=== PATIENT | female | born 1950 | race Caucasian/White ===

== ENCOUNTER 2016-09-25 17:51 | Observation (INO) | payer OTHER, BC ==
[~2016-09-25] VITALS: Ht 157.5 cm; Wt 59.8 kg
[~2016-09-25 17:51] MED LIST: ASPCH81X PO; CRS/10 PO; DILT120C99 PO; NTRGSL/4 UT; PRED1SUS3 OPR
[2016-09-25] MEDS ORDERED: SODIUM CHLORIDE 0.9% 1000ML 1,000 ML IV STA (18:13)
[2016-09-25] MEDS ORDERED: ASPIRIN 81 MG CHEW PO STA (18:13)
[2016-09-25] MEDS ORDERED: ONDANSETRON 8 MG/54 ML D5W IV STA (18:13)
[2016-09-25] MEDS ORDERED: NITROGLYCERIN 0.4 MG SL PER TAB CHARGE SL PRN ×2 (18:15→21:00)
[2016-09-25] MEDS ORDERED: NITROGLYCERIN OINT 2% 1GM PACKET EXT ONE (18:15)
--- NOTE | 2016-09-25 18:27 | DIAGNOSTIC IMAGING REPORT ---
CHEST ONE VIEW PORTABLE CLINICAL HISTORY: Chest pain. COMPARISON STUDY: Chest radiograph November 08, 2014. FINDINGS: There is no pneumothorax or pleural effusion. Cardiac size is normal. Mild left basilar opacity suggests atelectasis. There is no consolidation to suggest pneumonia. The appearance of the chest is unchanged. IMPRESSION: No acute cardiopulmonary findings. Electronically signed by: Mikel Dang M.D. 09/25/2016 6:26 PM Dictated Date/Time: 09/25/2016 6:25 PM
[2016-09-25 18:30] LABS: BASO % 0.5 %; BASO ABS # 0.04 K/uL (0-0.2); COMPLETE YES; EOS % 2.5 %; HEMATOCRIT 43.4 % (37-47); IG% 0.1 %; LYMPH % 28.8 %; LYMPH ABS # 2.35 K/uL (1.2-3.4); MEAN CELL VOLUME 91.2 fL (80-100); MEAN CORPUSCULAR HEMOGLOBIN 30.9 pg (25-34); MEAN CORPUSCULAR HGB CONC 33.9 g/dl (32-36); MEAN PLATELET VOLUME 10.1 fL (7.4-10.4); MONO % 9.8 %; NEUT % 58.3 %; PLATELET COUNT 244 K/uL (130-400); RED BLOOD COUNT 4.76 M/uL (4.2-5.4); WHITE BLOOD COUNT 8.16 K/uL (4.8-10.8)
[2016-09-25 18:49] LABS: BUN/CREATININE RATIO 18.7 (10-20); CALCIUM 9.6 mg/dl (8.5-10.1); POTASSIUM 3.6 mmol/L (3.5-5.1)
[2016-09-25 18:54] LABS: CKMB/CK RATIO 0.9 (0-3.0)
[2016-09-25] MEDS ORDERED: IBAN150T7 PO (19:08)
[2016-09-25] MEDS ORDERED: DILT180C48 PO (19:08)
[2016-09-25] MEDS ORDERED: ROSU20TA22 PO (19:08)
[2016-09-25] MEDS ORDERED: CYCL0.052 OPB (19:08)
[2016-09-25] MEDS ORDERED: ONDANSETRON INJ 2 MG/ML 2 ML VIAL IV PRN (21:00)
--- NOTE | 2016-09-25 21:13 | History and Physical ---
History & Physical Date & Time of Service: Sep 25, 2016 at 21:12 Chief Complaint: Chest Pain, Cardiac Hx- Sob Primary Care Physician: Selina Moser D.O. History of Present Illness Source: patient, family Patient is a 66 yr old female with PMH of CAD S/P stent, Vasospastic angina, HTN, HLP and other problems who follows with for cardiology presents with history of sudden onset of retrosternal chest pain this afternoon. She reports chest pain started at rest, constant, "pressure and gripping like pain, radiated to right arm and neck. She states chest pain was transiently associated with SOB, diaphoresis, lightheadedness and was rated at 8 /10. She initially to NTG at home which didn't subside the pain but when she was given NTG in ED, pain subsided and currently she rates it to be discomfort at 1/10. Currently also denies SOB, Dizziness, palpitations, nausea while in ED. Denies any history of cough, wheezing, fever, chills, abd pain, change in bowel/bladder habits. States having mild headache since after using NTG. She had an exercise stress ECHO in June 2016 which was negative for inducible ischemia. She was increased on Diltiazem to 180mg daily recently and states she has been doing well until today afternoon which the change in medication dosage. Past Medical/Surgical History Medical Problems: (1) Ablation Status: Resolved (2) Acute coronary syndrome Status: Resolved (3) Celiac disease Status: Chronic (4) Coronary artery disease Status: Resolved (5) Coronary vasospasm Status: Chronic (6) Hyperlipidemia Status: Chronic (7) Raynaud's disease Status: Chronic Surgical Problems: (1) H/O heart artery stent Status: Resolved (2) History of cholecystectomy Status: Resolved (3) History of tonsillectomy Status: Resolved Family History Heart disease Mother: Heart disease, Parkinson's disease, Alzheimer's dementia Social History Smoking Status: Former Smoker (Quit in 1993) Alcohol Use: socially Drug Use: none Marital Status: in relationship Occupational Status: employed Immunizations History of Influenza Vaccine: N/A History of Tetanus Vaccine?: Unknown History of Pneumococcal: Unknown History of Hepatitis B Vaccine: Unknown Multi-Drug Resistant Organisms History of MDRO: No Allergies Coded Allergies: Codeine (Verified Allergy, Unknown, 09/25/16) Penicillins (Verified Allergy, Unknown, 09/25/16) Morphine (Verified Adverse Reaction, Unknown, Hypotension, 09/25/16) Oxycodone (Verified Adverse Reaction, Unknown, Hallucinations/Confusion, ) Home Medications Scheduled Aspirin (Aspirin Chewable), 81 MG PO QAM Cyclosporine (Ophth) (Restasis), 1 DROP OPB DAILY Diltiazem Hcl (Dilt-Xr), 1 TAB PO QAM Ibandronate Sodium (Ibandronate Sodium), 1 TAB PO MONTHLY Rosuvastatin Calcium (Rosuvastatin Calcium), 1 TAB PO QAM Scheduled PRN Nitroglycerin (Nitrostat), 0.4 MG UT UD PRN for Chest Pain Review of Systems See HPI for pertinent positives & negatives. A total of 10 systems reviewed and were otherwise negative. Physical Exam Vital Signs Date Time Temp Pulse Resp B/P (MAP) Pulse Ox O2 Delivery O2 Flow Rate FiO2 09/25/16 20:01 122/75 09/25/16 19:56 65 15 95 09/25/16 19:41 65 17 94 09/25/16 19:30 106/64 09/25/16 19:26 66 20 93 09/25/16 19:11 68 18 92 09/25/16 19:01 107/71 09/25/16 18:56 67 18 92 09/25/16 18:41 73 24 93 09/25/16 18:36 80 18 91 09/25/16 18:31 117/82 09/25/16 18:21 72 15 95 09/25/16 18:14 71 09/25/16 18:12 Room Air 09/25/16 18:12 95 Room Air 09/25/16 18:00 143/74 09/25/16 17:54 36.7 89 18 151/90 98 Room Air General Appearance: WD/WN, no apparent distress Head: normocephalic, atraumatic Eyes: normal inspection, PERRL, EOMI ENT: normal ENT inspection, hearing grossly normal Neck: supple, trachea midline Respiratory/Chest: chest non-tender, normal breath sounds, no respiratory distress, + crackles (Basal b/l) Cardiovascular: regular rate, rhythm, no edema, no murmur Abdomen/GI: normal bowel sounds, non tender, soft Back: normal inspection Extremities/Musculoskelatal: normal inspection, no pedal edema 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, no motor/sensory deficits, alert, normal mood/affect, oriented x 3 Skin: normal color, warm/dry Diagnostics Laboratory Results Results Past 24 Hours Test 09/25/16 18:10 09/25/16 18:23 Range/Units White Blood Count 8.16 4.8-10.8 K/uL Red Blood Count 4.76 4.2-5.4 M/uL Hemoglobin 14.7 12.0-16.0 g/dL Hematocrit 43.4 37-47 % Mean Corpuscular Volume 91.2 80-100 fL Mean Corpuscular Hemoglobin 30.9 25-34 pg Mean Corpuscular Hemoglobin Concent 33.9 32-36 g/dl Platelet Count 244 130-400 K/uL Mean Platelet Volume 10.1 7.4-10.4 fL Neutrophils (%) (Auto) 58.3 % Lymphocytes (%) (Auto) 28.8 % Monocytes (%) (Auto) 9.8 % Eosinophils (%) (Auto) 2.5 % Basophils (%) (Auto) 0.5 % Neutrophils # (Auto) 4.76 1.4-6.5 K/uL Lymphocytes # (Auto) 2.35 1.2-3.4 K/uL Monocytes # (Auto) 0.80 0.11-0.59 K/uL Eosinophils # (Auto) 0.20 0-0.5 K/uL Basophils # (Auto) 0.04 0-0.2 K/uL RDW Standard Deviation 45.1 36.4-46.3 fL RDW Coefficient of Variation 13.5 11.5-14.5 % Immature Granulocyte % (Auto) 0.1 % Immature Granulocyte # (Auto) 0.01 0.00-0.02 K/uL Sodium Level 140 136-145 mmol/L Potassium Level 3.6 3.5-5.1 mmol/L Chloride Level 108 98-107 mmol/L Carbon Dioxide Level 23 21-32 mmol/L Anion Gap 9.0 3-11 mmol/L Blood Urea Nitrogen 19 7-18 mg/dl Creatinine 1.00 0.60-1.20 mg/dl Est Creatinine Clear Calc Drug Dose 42.6 ml/min Estimated GFR () 67.0 Estimated GFR (Non- 57.8 BUN/Creatinine Ratio 18.7 10-20 Random Glucose 85 70-99 mg/dl Calcium Level 9.6 8.5-10.1 mg/dl Total Bilirubin 0.4 0.2-1 mg/dl Direct Bilirubin 0.2 0-0.2 mg/dl Aspartate Amino Transf (AST/SGOT) 26 15-37 U/L Alanine Aminotransferase (ALT/SGPT) 26 12-78 U/L Alkaline Phosphatase 51 45-117 U/L Total Creatine Kinase 81 26-192 U/L Creatine Kinase MB 0.7 0.5-3.6 ng/ml Creatine Kinase MB Ratio 0.9 0-3.0 Total Protein 8.1 6.4-8.2 gm/dl Albumin 3.8 3.4-5.0 gm/dl Lipase 144 73-393 U/L Bedside Troponin I < 0.030 0-0.045 ng/ml Diagnostic Radiology CXR:: No acute cardiopulmonary findings. 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 Risk Factors: CAD, HTN, HLP, former smoker, family history Monitor in Tele Troponin 1st set negative CXR: no acute process EKG shows:Nonspecific ST changes Exercise stress ECHO in June 2016: No inducible ischemia Trend serial cardiac enzymes, repeat EKG, fasting lipid panel in AM Continue Asprin, Diltiazem, statins NTG PRN for pain Will consult cardiology NPO after midnight CAD S/P ALESSIA to proximal LAD management as above Dyslipidemia: Continue statins Check lipid panel HTN: Stable Continue home meds H/o Temporal arteritis Follows with rheumatology as outpatient H/O Supraventricular Tachycardia S/P ablation Stable H/O Celiac disease Stable DVT Px: Heparin SQ Code Status: Full code Disposition: Monitor in Telemetry VTE Prophylaxis VTE Risk Assessment Done? Y/N: Yes Risk Level: Low
--- NOTE | 2016-09-25 21:13 | EMERGENCY ROOM VISIT NOTE ---
History Report prepared by Fannieibaudra: Kasey Moore Under the Supervision of: Dr. Favian Garcia M.D. First contact with patient: 18:06 Chief Complaint: CHEST PAIN Stated Complaint: CHEST PAIN, CARDIAC HX- SOB History of Present Illness The patient is a 66 year old female who presents to the Emergency Room with complaints of persistent chest pain for the past 40 minutes. She describes the pain as being located under her sternum and rates it as an 8/10. The pain radiates up into her neck and left arm. 1 tablet of sublingual Nitroglycerin provided moderate relief. She also experienced shortness of breath and diaphoresis. She has an extensive past cardiac history including a stent, CAD, an ablation and coronary vasospasm. She reports her pain today felt similar to chest pain she has experienced in the past. The patient does take daily Aspirin. She denies any recent travel or long car trips. Pt denies LOC, headache , fevers, chills, visual changes, neck pain, tearing pain radiating to the back , personal history or family history of aneurysm or pulmonary embolism, uncontrolled hypertension, leg swelling, coagulation abnormalities, recent surgery or immobilization, nausea, vomiting, abdominal pain, melena, hematochezia, urinary symptoms, numbness, weakness, lymphadenopathy, rash, or other complaints. 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 A total of ten systems were reviewed and were otherwise negative. Past Medical & Surgical Medical Problems: (1) Ablation (2) Acute coronary syndrome (3) Celiac disease (4) Chest pain (5) Chest pain (6) Coronary artery disease (7) Coronary vasospasm (8) Head injury (9) Hematoma of arm (10) Hyperlipidemia (11) Medical non-compliance (12) Raynaud's disease Surgical Problems: (1) H/O heart artery stent (2) History of cholecystectomy (3) History of tonsillectomy Family History Heart disease Social History Smoking Status: Never Smoker Alcohol Use: occasionally Drug Use: none Marital Status: in relationship Housing Status: lives with significant other Occupation Status: employed Current/Historical Medications Scheduled Aspirin (Aspirin Chewable), 81 MG PO QAM Cyclosporine (Ophth) (Restasis), 1 DROP OPB DAILY Diltiazem Hcl (Dilt-Xr), 1 TAB PO QAM Ibandronate Sodium (Ibandronate Sodium), 1 TAB PO MONTHLY Rosuvastatin Calcium (Rosuvastatin Calcium), 1 TAB PO QAM Scheduled PRN Nitroglycerin (Nitrostat), 0.4 MG UT UD PRN for Chest Pain Allergies Coded Allergies: Codeine (Verified Allergy, Unknown, 09/25/16) Penicillins (Verified Allergy, Unknown, 09/25/16) Morphine (Verified Adverse Reaction, Unknown, Hypotension, 09/25/16) Oxycodone (Verified Adverse Reaction, Unknown, Hallucinations/Confusion, ) Physical Exam Vital Signs Date Time Temp Pulse Resp B/P (MAP) Pulse Ox O2 Delivery O2 Flow Rate FiO2 09/25/16 20:01 122/75 09/25/16 19:56 65 15 95 09/25/16 19:41 65 17 94 09/25/16 19:30 106/64 09/25/16 19:26 66 20 93 09/25/16 19:11 68 18 92 09/25/16 19:01 107/71 09/25/16 18:56 67 18 92 09/25/16 18:41 73 24 93 09/25/16 18:36 80 18 91 09/25/16 18:31 117/82 09/25/16 18:21 72 15 95 09/25/16 18:14 71 09/25/16 18:12 Room Air 09/25/16 18:12 95 Room Air 09/25/16 18:00 143/74 09/25/16 17:54 36.7 89 18 151/90 98 Room Air Physical Exam GENERAL: Awake, alert, well-appearing, in no distress HENT: Normocephalic, atraumatic. Oropharynx unremarkable. EYES: Normal conjunctiva. Sclera non-icteric. NECK: Supple. No nuchal rigidity. FROM. No JVD. RESPIRATORY: Clear to auscultation. CARDIAC: Regular rate, normal rhythm. Extremities warm and well perfused. Pulses equal. ABDOMEN: Soft, non-distended. No tenderness to palpation. No rebound or guarding. No masses. RECTAL: Deferred. MUSCULOSKELETAL: Chest examination reveals no tenderness. The back is symmetrical on inspection without obvious abnormality. There is no CVA tenderness to palpation. No joint edema. LOWER EXTREMITIES: Calves are equal size bilaterally and non-tender. No edema. No discoloration. NEURO: Normal sensorium. No sensory or motor deficits noted. SKIN: No rash or jaundice noted. Medical Decision & Procedures ER Provider Diagnostic Interpretation: Radiology results as stated below per my review and radiologist interpretation: CHEST ONE VIEW PORTABLE CLINICAL HISTORY: Chest pain. COMPARISON STUDY: Chest radiograph November 08, 2014. FINDINGS: There is no pneumothorax or pleural effusion. Cardiac size is normal. Mild left basilar opacity suggests atelectasis. There is no consolidation to suggest pneumonia. The appearance of the chest is unchanged. IMPRESSION: No acute cardiopulmonary findings. Electronically signed by: Mikel Dang M.D. 09/25/2016 6:26 PM Laboratory Results 09/25/16 18:10 Red Blood Count 4.76, Mean Corpuscular Volume 91.2, Mean Corpuscular Hemoglobin 30.9, Mean Corpuscular Hemoglobin Concent 33.9, Mean Platelet Volume 10.1, Neutrophils (%) (Auto) 58.3, Lymphocytes (%) (Auto) 28.8, Monocytes (%) (Auto) 9.8, Eosinophils (%) (Auto) 2.5, Basophils (%) (Auto) 0.5, Neutrophils # (Auto) 4.76, Lymphocytes # (Auto) 2.35, Monocytes # (Auto) 0.80, Eosinophils # (Auto) 0.20, Basophils # (Auto) 0.04 09/25/16 18:10 Test 09/25/16 18:10 09/25/16 18:23 White Blood Count 8.16 K/uL (4.8-10.8) Red Blood Count 4.76 M/uL (4.2-5.4) Hemoglobin 14.7 g/dL (12.0-16.0) Hematocrit 43.4 % (37-47) Mean Corpuscular Volume 91.2 fL (80-100) Mean Corpuscular Hemoglobin 30.9 pg (25-34) Mean Corpuscular Hemoglobin Concent 33.9 g/dl (32-36) Platelet Count 244 K/uL (130-400) Mean Platelet Volume 10.1 fL (7.4-10.4) Neutrophils (%) (Auto) 58.3 % Lymphocytes (%) (Auto) 28.8 % Monocytes (%) (Auto) 9.8 % Eosinophils (%) (Auto) 2.5 % Basophils (%) (Auto) 0.5 % Neutrophils # (Auto) 4.76 K/uL (1.4-6.5) Lymphocytes # (Auto) 2.35 K/uL (1.2-3.4) Monocytes # (Auto) 0.80 K/uL (0.11-0.59) Eosinophils # (Auto) 0.20 K/uL (0-0.5) Basophils # (Auto) 0.04 K/uL (0-0.2) RDW Standard Deviation 45.1 fL (36.4-46.3) RDW Coefficient of Variation 13.5 % (11.5-14.5) Immature Granulocyte % (Auto) 0.1 % Immature Granulocyte # (Auto) 0.01 K/uL (0.00-0.02) Anion Gap 9.0 mmol/L (3-11) Est Creatinine Clear Calc Drug Dose 42.6 ml/min Estimated GFR () 67.0 Estimated GFR (Non- 57.8 BUN/Creatinine Ratio 18.7 (10-20) Calcium Level 9.6 mg/dl (8.5-10.1) Total Bilirubin 0.4 mg/dl (0.2-1) Direct Bilirubin 0.2 mg/dl (0-0.2) Aspartate Amino Transf (AST/SGOT) 26 U/L (15-37) Alanine Aminotransferase (ALT/SGPT) 26 U/L (12-78) Alkaline Phosphatase 51 U/L (45-117) Total Creatine Kinase 81 U/L (26-192) Creatine Kinase MB 0.7 ng/ml (0.5-3.6) Creatine Kinase MB Ratio 0.9 (0-3.0) Total Protein 8.1 gm/dl (6.4-8.2) Albumin 3.8 gm/dl (3.4-5.0) Lipase 144 U/L (73-393) Bedside Troponin I < 0.030 ng/ml (0-0.045) Laboratory results reviewed by me Medications Administered Medications (Trade) Dose Ordered Sig/Joseph Route Start Time Stop Time Status Last Admin Dose Admin Nitroglycerin (Nitroglycerin 2% Oint) 1 inch NOW ONCE EXT 09/25/16 18:15 09/25/16 18:16 DC 09/25/16 18:31 1 INCH Aspirin (Aspirin Chew) 324 mg NOW STAT PO 09/25/16 18:13 09/25/16 18:14 DC 09/25/16 18:32 324 MG Ondansetron HCl (Zofran 8mg Iv) 8 mg NOW STAT IV 09/25/16 18:13 09/25/16 18:16 DC 09/25/16 18:31 8 MG Nitroglycerin (Nitrostat Tab) 0.4 mg Q5M PRN SL 09/25/16 18:15 10/25/16 18:14 09/25/16 18:32 0.4 MG Sodium Chloride 1,000 ml @ 125 mls/hr Q8H STAT IV 09/25/16 18:13 09/26/16 02:12 09/25/16 18:31 125 MLS/HR ECG Indication: chest pain Rate (beats per minute): 65 Rhythm: normal sinus Findings: nonspecific-ST abn, no acute ischemic change, no ectopy ED Course 1811: The patient was evaluated in room A4. A complete history and physical exam was performed. 1812: NSS 1000 ml @ 125 mls/hr IV, Zofran 8 mg IV, Aspirin 324 mg PO. 1814: Nitrostat 0.4 mg SL, Nitroglycerin 2% Ointment 1 inch EXT. 1954: I reevaluated the patient. She is resting comfortably. I discussed my recommendation that she remain in the hospital for further evaluation and management and she verbalized complete understanding and agreement. 2011: I discussed the patients case with Dr. Almanzar, [facility] Hospitalist. The patient will be further evaluated. Medical Decision Medication Reconciliation: I attest that I have personally reviewed the patient' s current medication list Blood pressure screening: Patient was found to have normal blood pressure on screening and does not require follow-up. Triage Nursing notes reviewed. The patient's presentation and history were concerning for chest pain. Etiologies such as cardiac ischemia, aortic dissection, pulmonary embolism, pneumonia, pneumothorax, musculoskeletal, infections, gastrointestinal, as well as others were entertained. Patient was evaluated. She has an extensive cardiac history. She was given nitroglycerin and aspirin. Pain resolved. Her ECG, CBC, chemistry panel, LFTs , lipase and cardiac markers are negative. I did consult with the [facility] hospitalist. The patient was evaluated in the Emergency Room for further treatment. Consults Time Called: 1810 Consulting Physician[facility] Returned Call: 1811 [facility] The patient will be further evaluated. Impression Primary Impression: Substernal chest pain Additional Impression: History of coronary artery disease Scribe Attestation The scribe's documentation has been prepared under my direction and personally reviewed by me in its entirety. I confirm that the note above accurately reflects all work, treatment, procedures, and medical decision making performed by me. Departure Information Dispostion Being Evaluated By Hospitalist Referrals Selina Moser D.O. (PCP) Patient Instructions My [facility] Problem Qualifiers
[2016-09-25] MEDS ORDERED: IV FLUIDS COMPLETED PRN (21:30)
[2016-09-25 22:17] LABS: PARTIAL THROMBOPLASTIN RATIO 1.1; PROTHROMBIN TIME (PATIENT) 10.6 SECONDS (9.0-12.0)
[2016-09-25 22:26] VITALS: BP 133/70; PULSE 69; TEMP 36.5; O2SAT 93; Ht 157.5 cm; Wt 59.8 kg
[2016-09-25] MEDS ORDERED: SODIUM CHLORIDE 0.9% 1000ML 1,000 ML IV SCH (22:45)
[2016-09-25] MEDS: ACETAMINOPHEN 325 MG TAB PO PRN (23:32)
[2016-09-26] VITALS: BP 96/59; PULSE 58; TEMP 36.8; O2SAT 93
[2016-09-26 04:18] VITALS: BP 93/54; PULSE 63; TEMP 36.6; O2SAT 93
[2016-09-26] MEDS: HEPARIN SOD 5000 UNIT/0.5 ML CARP SQ SCH ×2 (06:02→12:55)
[2016-09-26 06:19] LABS: BASO % 0.9 %; BASO ABS # 0.06 K/uL (0-0.2); COMPLETE YES; EOS % 3.3 %; HEMATOCRIT 37.3 % (37-47); LYMPH % 29.5 %; LYMPH ABS # 1.95 K/uL (1.2-3.4); MEAN CELL VOLUME 92.3 fL (80-100); MEAN CORPUSCULAR HGB CONC 32.4 g/dl (32-36); MEAN PLATELET VOLUME 9.3 fL (7.4-10.4); MONO % 8.3 %; PLATELET COUNT 231 K/uL (130-400); RED BLOOD COUNT 4.04 M/uL (4.2-5.4); WHITE BLOOD COUNT 6.62 K/uL (4.8-10.8)
[2016-09-26 06:52] LABS: BLOOD UREA NITROGEN 18 mg/dl (7-18); BUN/CREATININE RATIO 18.1 (10-20); CALCIUM 8.6 mg/dl (8.5-10.1); CARBON DIOXIDE 26 mmol/L (21-32); CHLORIDE 111 mmol/L (98-107); CREATININE 0.97 mg/dl (0.60-1.20); GLUCOSE 81 mg/dl (70-99); POTASSIUM 3.7 mmol/L (3.5-5.1); SODIUM 143 mmol/L (136-145)
[2016-09-26 06:57] LABS: CHOLESTEROL 139 mg/dl (0-200); HDL CHOLESTEROL 46 mg/dl; LDL CHOLESTEROL CALCULATED 79 mg/dl; TRIGLYCERIDES 72 mg/dl (0-150); VERY LOW DENSITY LIPOPROT CALC 14 mg/dl
[2016-09-26 07:44] VITALS: BP 109/68; PULSE 63; TEMP 36.6; O2SAT 92
[2016-09-26] MEDS ORDERED: ROSUVASTATIN CALCIUM 20 MG TAB PO SCH (09:00)
[2016-09-26] MEDS ORDERED: ASPIRIN 81 MG ECTAB PO SCH (09:00)
[2016-09-26] MEDS ORDERED: DILTIAZEM HCL 180 MG ER CAP PO SCH (09:00)
[2016-09-26] MEDS ORDERED: ISOSORBIDE MONONITRATE 30 MG TABCR PO ONE ×2 (11:23→11:30)
[2016-09-26] MEDS: ACETAMINOPHEN 325 MG TAB PO PRN (11:26)
--- NOTE | 2016-09-26 11:52 | Cardiology Consultation ---
Cardiology Consultation Date of Consultation: Sep 26, 2016 History of Present Illness Thu Paz is a 66 year old female seen in cardiology consultation per the request of Dr King for the evaluation of chest pain. The patient states that she was in her normal state of health yesterday when around the time of her evening meal she had acute onset of mid to left-sided chest discomfort that occurred at rest. She had associated shortness of breath. She described this as a chest heaviness. She took a single sublingual nitroglycerin at home which did not significantly palliate the pain . She received a dose of sublingual nitroglycerin at 1815 in the emergency department last evening followed by 1 inch of topical nitroglycerin ointment with complete palliation of her discomfort. She rested well overnight last night and she has felt well with the exception of a headache that is likely due to the nitroglycerin. Her EKG on arrival last evening revealed normal sinus rhythm at 65 bpm with mild nonspecific ST abnormality but no definite evidence of ischemia , and her repeat EKG performed this morning revealed stable findings. Telemetry reveals stable sinus rhythm without significant arrhythmia. Cardiac enzymes have been negative on 3 occasions including a [id number] last evening at 1823, a laboratory drawn measurement at 1810, and a repeat at 555 this morning. Her LDL cholesterol was 79 mg/dL this morning. Vital signs reveal no evidence of high blood pressure, her most recent blood pressure is 109/68. The patient typically follows with Dr. Alexander Harry of our practice with most recent outpatient visit on 08/10/16, how she time she was seen in follow-up exercise stress echo performed as an outpatient on 06/29/16 was performed for symptoms of exertional shortness of breath and chest discomfort. The patient exercised 6 minutes and 21 seconds at a time with no EKG or echocardiographic evidence of inducible ischemia, symptoms that were felt to be atypical for angina were noted. The patient was feeling relatively well at that time for follow-up visit and her diltiazem dose was increased from 120 mg to 180 mg on which she has tolerated well. History Past Medical History: 1. Past history of coronary heart disease with CAD as well as documented coronary artery vasospasm -She underwent cardiac catheterization in August 2008 at [facility] after an adenosine MRI stress test was positive for anteroseptal ischemia, the report documents normal coronary arteries at that time -Repeat cardiac catheterization was performed at [facility] on 06/23/13 at which time she was found to have single-vessel CAD and underwent PCI with drug-eluting stent implantation to the proximal left anterior descending coronary artery -Repeat cardiac catheterization was performed at [facility] by Dr. Alexander Harry on 12/09/13 at which time the stent in the proximal LAD is noted to be patent with 40-50% focal stenosis of the ostial LAD noted on initial imaging that resolved after the administration of sublingual nitroglycerin during the procedure. A 40% stenosis was noted in the mid RCA and 30% distal RCA stenosis. Disease is also noted in the diagonal branch of the LAD that appeared improved after sublingual nitroglycerin administration. 2. Hypertension 3. Dyslipidemia 4. History of temporal arteritis 5. History of supraventricular tachycardia for which she underwent remote ablation in [facility] 6. Prior heavy cigarette smoker 7. 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 Cardiac catheterization as outlined above in 2008, 2013, and again in 2013 2. 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 Laparoscopic cholecystectomy 2008 4. 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 A total of 10 systems reviewed and were otherwise negative. Allergies Coded Allergies: Codeine (Verified Allergy, Unknown, 09/25/16) Penicillins (Verified Allergy, Unknown, 09/25/16) Morphine (Verified Adverse Reaction, Unknown, Hypotension, 09/25/16) Oxycodone (Verified Adverse Reaction, Unknown, Hallucinations/Confusion, ) Medications Reported Home Medications Medications Dose Route/Sig Max Daily Dose Days Date Category Restasis (Cyclosporine (Ophth)) 0.05 % Emu 1 Drop OPB DAILY 09/25/16 Reported Dilt-Xr (Diltiazem Hcl) 180 Mg Cap 1 Tab PO QAM 09/25/16 Reported Ibandronate Sodium 150 Mg Tab 1 Tab PO MONTHLY 09/25/16 Reported Rosuvastatin Calcium 20 Mg Tab 1 Tab PO QAM 09/25/16 Reported Aspirin Chewable (Aspirin) 81 Mg Chew 81 Mg PO QAM 06/22/15 Reported Nitrostat (Nitroglycerin) 0.4 Mg Tab 0.4 Mg UT UD PRN 12/09/13 Reported Physical Exam Vital Signs (Last 8hrs): Last 8 Hrs Date Time Temp Pulse Resp B/P (MAP) Pulse Ox O2 Delivery O2 Flow Rate FiO2 09/26/16 08:00 Room Air 09/26/16 07:44 36.6 63 16 109/68 (82) 92 Room Air 09/26/16 04:18 36.6 63 15 93/54 (67) 93 Room Air 09/26/16 04:00 Room Air General Appearance: Alert and Oriented x3. NAD. Head: Normocephalic Atraumatic. Eyes: PERRLA, EOMI, conjunctiva and sclera clear Neck: Supple. No carotid bruits noted. No JVD. No HJD. Respiratory: Breath sounds clear to auscultation bilaterally. No w/r/r. Cardiovascular: Reg rate and rhythm. S1 and S2 noted. No murmurs, rubs, gallops. PMI non displace. Abdomen: Normal bowel sounds, soft nontender. no abdominal bruits. Extremities: No edema, no clubbing or cyanosis. distal pulses 2/4 bilaterally. Neuro: No focal deficits. Psychiatric: Normal affect. Data Last Resulted 09/26/16 05:55 Red Blood Count 4.04, Mean Corpuscular Volume 92.3, Mean Corpuscular Hemoglobin 30.0, Mean Corpuscular Hemoglobin Concent 32.4, Mean Platelet Volume 9.3, Neutrophils (%) (Auto) 58.0, Lymphocytes (%) (Auto) 29.5, Monocytes (%) (Auto) 8.3, Eosinophils (%) (Auto) 3.3, Basophils (%) (Auto) 0.9, Neutrophils # (Auto) 3.84, Lymphocytes # (Auto) 1.95, Monocytes # (Auto) 0.55, Eosinophils # (Auto) 0.22, Basophils # (Auto) 0.06 Last Resulted 09/26/16 05:55 Past 24 Hours Test 09/25/16 18:10 09/26/16 05:55 Range/Units Creatine Kinase MB 1.0 0.8 0.5-3.6 ng/ml Creatine Kinase MB Ratio 0-3.0 Prothromb Time International Ratio 1.0 0.9-1.1 Prothrombin Time 10.6 9.0-12.0 SECONDS Total Creatine Kinase 81 26-192 U/L Troponin I < 0.015 < 0.015 0-0.045 ng/ml EKG: As outlined above Telemetry reviewed: As outlined above Assessment & Plan Impression: 66-year-old female 1. 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 2. Hypertension, well-controlled 3. History of dyslipidemia, on Crestor Discussion/recommendations: The patient had a recent exercise stress echocardiogram as an outpatient on at which time she exercised 6 minutes and 21 seconds with no EKG or echocardiographic evidence of inducible ischemia. Yesterday his discomfort was different than her recent complaints. She had otherwise complained of exertional shortness of breath and some degree of chest discomfort yesterday she had acute onset of resting chest discomfort. Cardiac enzymes are negative and EKG reveals no ischemic changes and she feels completely back to normal with the exception of having a headache that is perhaps due to topical nitroglycerin treatment. Her past diagnosis of vasospastic angina would account for abnormal adenosine MRI stress test in 2008 followed by normal coronary angiography. She underwent drug-eluting stent to the proximal LAD for atherosclerosis documented in May 2013 for follow-up repeat cardiac catheterization and November 2013 documented patent stent, vasospasm, nonobstructive disease otherwise. In the past, she had been on amlodipine which was discontinued due to symptoms of orthostatic hypotension but she has tolerated diltiazem for several years and the dose was recently increased from 120 mg daily to 180 mg daily which she has been tolerating overall until yesterday's breakthrough event. It appears that she was prescribed isosorbide mononitrate for a brief period in 2013. It was apparently discontinued after a month. This may have been due to additional concerns of side effects. The patient has had issues with medication side effects in the past and also she admittedly prefers not to take medication and she has had issues with adherence in the past. At present, I'm concerned that her symptoms were vasospasm rather than CAD given the available data and the nature of her chest discomfort with abrupt onset in the absence of any physical or emotional stress that occurred at rest. I have asked her nurse to remove her topical nitrates and have her ambulate in the hallway. I'm going to start her back on isosorbide mononitrate extended-release in addition to her chronic diltiazem dose with starting dose of Imdur of 30 mg, 1/2 mg or 15 mg daily and plans to increase to one tablet daily after week if tolerated. The patient already has a follow-up visit planned with Dr. Harry next month. The patient as well as walking today with recurrence of symptoms will plan for discharge and outpatient follow-up. The patient has breakthrough symptoms, will have low threshold for repeating her coronary angiography to assess for progression of her underlying atherosclerosis. Ashleigh Hung DO
[2016-09-26 11:58] VITALS: BP 139/80; PULSE 70; TEMP 36.6; O2SAT 94
--- NOTE | 2016-09-26 14:39 | Progress Note ---
Internal Med Progress Note Date of Service: Sep 26, 2016. Provider Documentation: SUBJECTIVE: Patient is sitting in the bed comfortably and is in no apparent distress. Remains chest pain free. Breathing comfortably. Able to walk in the hallway without any new symptoms. 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 ASSESSMENT & PLAN: Chest Pain: R/O ACS: Clinically & hemodynamically doing well.Likely secondary to vasospastic Prinzmetal angina Risk Factors: CAD, HTN, HLP, former smoker, family history -Serial Troponin are negative. -CXR: no acute process -EKG shows:Nonspecific ST changes -Exercise stress ECHO in June 2016: No inducible ischemia -Fasting lipid profile shows HDL 46 & LDl 79. -Continue Aspirin, Diltiazem, statins -NTG PRN for pain -Reviewed cardiology consult & discussed with Dr. Hung -Started Imdur and dose will be increased after one week if tolerates well. CAD S/P ALESSIA to proximal LAD: Management as above Dyslipidemia: Lipid profile within parameters. Continue statins Hypertension: Stable -Continue home meds H/o Temporal Arteritis:Follows with rheumatology as outpatient H/O Supraventricular Tachycardia S/P ablation: Stable H/O Celiac disease : Stable DVT Prophylaxis:Heparin SQ Code Status:Full code Disposition: Discharge home later today. Follow up with PCP in 3-5 days after discharge. Follow up with Cardiology as per the scheduled appointment in October 2016. Vital Signs: Date Time Temp Pulse Resp B/P (MAP) Pulse Ox O2 Delivery O2 Flow Rate FiO2 09/26/16 12:00 Room Air 09/26/16 11:58 36.6 70 16 139/80 (99) 94 Room Air 09/26/16 08:00 Room Air 09/26/16 07:44 36.6 63 16 109/68 (82) 92 Room Air 09/26/16 04:18 36.6 63 15 93/54 (67) 93 Room Air 09/26/16 04:00 Room Air 09/26/16 00:00 36.8 58 17 96/59 (71) 93 Room Air 09/26/16 00:00 Room Air 09/25/16 22:26 36.5 69 20 133/70 93 Room Air 09/25/16 22:06 74 19 09/25/16 22:01 118/64 09/25/16 21:51 74 19 09/25/16 21:36 71 16 09/25/16 21:31 114/67 09/25/16 21:06 69 17 09/25/16 20:36 64 17 94 09/25/16 20:30 108/76 09/25/16 20:06 65 20 94 09/25/16 20:01 122/75 09/25/16 19:56 65 15 95 09/25/16 19:41 65 17 94 09/25/16 19:30 106/64 09/25/16 19:26 66 20 93 09/25/16 19:11 68 18 92 09/25/16 19:01 107/71 09/25/16 18:56 67 18 92 09/25/16 18:41 73 24 93 09/25/16 18:36 80 18 91 09/25/16 18:31 117/82 09/25/16 18:21 72 15 95 09/25/16 18:14 71 09/25/16 18:12 Room Air 09/25/16 18:12 95 Room Air 09/25/16 18:00 143/74 09/25/16 17:54 36.7 89 18 151/90 98 Room Air Lab Results: Results Past 24 Hours Test 09/25/16 18:10 09/25/16 18:23 09/26/16 05:55 09/26/16 11:55 Range/Units White Blood Count 8.16 6.62 4.8-10.8 K/uL Red Blood Count 4.76 4.04 4.2-5.4 M/uL Hemoglobin 14.7 12.1 12.0-16.0 g/dL Hematocrit 43.4 37.3 37-47 % Mean Corpuscular Volume 91.2 92.3 80-100 fL Mean Corpuscular Hemoglobin 30.9 30.0 25-34 pg Mean Corpuscular Hemoglobin Concent 33.9 32.4 32-36 g/dl Platelet Count 244 231 130-400 K/uL Mean Platelet Volume 10.1 9.3 7.4-10.4 fL Neutrophils (%) (Auto) 58.3 58.0 % Lymphocytes (%) (Auto) 28.8 29.5 % Monocytes (%) (Auto) 9.8 8.3 % Eosinophils (%) (Auto) 2.5 3.3 % Basophils (%) (Auto) 0.5 0.9 % Neutrophils # (Auto) 4.76 3.84 1.4-6.5 K/uL Lymphocytes # (Auto) 2.35 1.95 1.2-3.4 K/uL Monocytes # (Auto) 0.80 0.55 0.11-0.59 K/uL Eosinophils # (Auto) 0.20 0.22 0-0.5 K/uL Basophils # (Auto) 0.04 0.06 0-0.2 K/uL RDW Standard Deviation 45.1 46.1 36.4-46.3 fL RDW Coefficient of Variation 13.5 13.6 11.5-14.5 % Immature Granulocyte % (Auto) 0.1 0.0 % Immature Granulocyte # (Auto) 0.01 0.00 0.00-0.02 K/uL Prothrombin Time 10.6 9.0-12.0 SECONDS Prothromb Time International Ratio 1.0 0.9-1.1 Activated Partial Thromboplast Time 28.6 21.0-31.0 SECONDS Partial Thromboplastin Ratio 1.1 Sodium Level 140 143 136-145 mmol/L Potassium Level 3.6 3.7 3.5-5.1 mmol/L Chloride Level 108 111 98-107 mmol/L Carbon Dioxide Level 23 26 21-32 mmol/L Anion Gap 9.0 6.0 3-11 mmol/L Blood Urea Nitrogen 19 18 7-18 mg/dl Creatinine 1.00 0.97 0.60-1.20 mg/dl Est Creatinine Clear Calc Drug Dose 42.6 43.9 ml/min Estimated GFR () 67.0 69.6 Estimated GFR (Non- 57.8 60.0 BUN/Creatinine Ratio 18.7 18.1 10-20 Random Glucose 85 81 70-99 mg/dl Calcium Level 9.6 8.6 8.5-10.1 mg/dl Total Bilirubin 0.4 0.2-1 mg/dl Direct Bilirubin 0.2 0-0.2 mg/dl Aspartate Amino Transf (AST/SGOT) 26 15-37 U/L Alanine Aminotransferase (ALT/SGPT) 26 12-78 U/L Alkaline Phosphatase 51 45-117 U/L Total Creatine Kinase 81 26-192 U/L Creatine Kinase MB 1.0 0.8 0.5-3.6 ng/ml Creatine Kinase MB Ratio 0-3.0 Troponin I < 0.015 < 0.015 0-0.045 ng/ml Total Protein 8.1 6.4-8.2 gm/dl Albumin 3.8 3.4-5.0 gm/dl Lipase 144 73-393 U/L Bedside Troponin I < 0.030 0-0.045 ng/ml Triglycerides Level 72 0-150 mg/dl Cholesterol Level 139 0-200 mg/dl HDL Cholesterol 46 mg/dl LDL Cholesterol, Calculated 79 mg/dl VLDL Cholesterol, Calculated 14 mg/dl Cholesterol/HDL Ratio 3.0 Test 09/26/16 12:06 Range/Units Creatine Kinase MB < 0.5 0.5-3.6 ng/ml Troponin I < 0.015 0-0.045 ng/ml
[2016-09-26] MEDS ORDERED: ISOS30TA3 PO (14:54)
--- NOTE | 2016-09-26 14:57 | Discharge Instructions ---
Discharge Instructions Date of Service Sep 26, 2016. Admission Reason for Admission: Chest Pain Discharge Discharge Diagnosis / Problem: Chest Pain Caused by Vasospasm. Discharge Goals Goal(s): Decrease discomfort, Improve function, Increase independence, Improve disease control, Prevent Disease Progression Activity Recommendations Activity Limitations: resume your previous activity (As Tolerated.) Lifting Limitations: none Exercise/Sports Limitations: as tolerated May Resume Sexual Activity: when tolerated Shower/Bathe: no limitations Driving or Machine Use: no limitations . Instructions / Follow-Up Instructions / Follow-Up Follow up with PCP in 3-5 days after discharge. Follow up with Cardiology as per the scheduled appointment in October 2016. Current Hospital Diet Patient's current hospital diet: AHA Diet (Heart Healthy) Discharge Diet Recommended Diet: AHA Diet (Heart Healthy) Pending Studies Studies pending at discharge: no Laboratory Results Lipid Panel Test 09/26/16 05:55 Range/Units Triglycerides Level 72 0-150 mg/dl Cholesterol Level 139 0-200 mg/dl HDL Cholesterol 46 mg/dl Cholesterol/HDL Ratio 3.0 LDL Cholesterol, Calculated 79 mg/dl Medical Emergencies . Who to Call and When: Medical Emergencies: If at any time you feel your situation is an emergency, please call 911 immediately. . Non-Emergent Contact Non-Emergency issues call your: Primary Care Provider . . "Provider Documentation" section prepared by Jules Suraez. . Specialist Physicians Recommendations Specialist Physicians Recommendations: NEW MEDICATION: Imdur Start Imdur 15 mg or 1/2 Tablet daily in AM for 7 days and if you tolerate well , then increase dose to 30 mg Daily (Full Tablet). VTE Core Measure Inpt VTE Proph given/why not?: Enoxaparin (Lovenox)[facility] Drug Monitoring Program Search Results: no issues identified
--- NOTE | 2016-09-26 14:59 | Discharge Summary ---
Discharge Summary Date of Service Sep 26, 2016. Discharge Summary Admission Date: Sep 25, 2016 at 21:08 Discharge Date: Sep 26, 2016 Discharge Disposition: Home Principal Diagnosis: Chest Pain Caused by Vasospasm Secondary Diagnoses/Problems: Hypertension Dyslipidemia Procedures: none Vaccinations: NONE Consultations: Cardiology Pending Studies/Follow-Up: NONE Medication Reconciliation New Medications: Isosorbide Mononitrate Ext Rel (Imdur Ext Rel) 30 Mg Ertab 1 TAB PO DAILY for 90 Days, #90 TAB 1 Refill Continued Medications: Aspirin (Aspirin Chewable) 81 Mg Chew 81 MG PO QAM Cyclosporine (Ophth) (Restasis) 0.05 % Emu 1 DROP OPB DAILY, #60 Diltiazem Hcl (Dilt-Xr) 180 Mg Cap 1 TAB PO QAM Ibandronate Sodium (Ibandronate Sodium) 150 Mg Tab 1 TAB PO MONTHLY, #3 Nitroglycerin (Nitrostat) 0.4 Mg Tab 0.4 MG UT UD PRN for Chest Pain Rosuvastatin Calcium (Rosuvastatin Calcium) 20 Mg Tab 1 TAB PO QAM Admission Information HPI (per Admitting provider): Patient is a 66 yr old female with PMH of CAD S/P stent, Vasospastic angina, HTN, HLP and other problems who follows with for cardiology presents with history of sudden onset of retrosternal chest pain this afternoon. She reports chest pain started at rest, constant, "pressure and gripping like pain, radiated to right arm and neck. She states chest pain was transiently associated with SOB, diaphoresis, lightheadedness and was rated at 8 /10. She initially to NTG at home which didn't subside the pain but when she was given NTG in ED, pain subsided and currently she rates it to be discomfort at 1/10. Currently also denies SOB, Dizziness, palpitations, nausea while in ED. Denies any history of cough, wheezing, fever, chills, abd pain, change in bowel/bladder habits. States having mild headache since after using NTG. She had an exercise stress ECHO in June 2016 which was negative for inducible ischemia. She was increased on Diltiazem to 180mg daily recently and states she has been doing well until today afternoon which the change in medication dosage. 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 -CXR: no acute process -EKG shows:Nonspecific ST changes -Exercise stress ECHO in June 2016: No inducible ischemia -Fasting lipid profile shows HDL 46 & LDl 79. -Continue Aspirin, Diltiazem, statins -NTG PRN for pain -Reviewed cardiology consult & discussed with Dr. Hung -Started Imdur and dose will be increased after one week if tolerates well. CAD S/P ALESSIA to proximal LAD: Management as above Dyslipidemia: Lipid profile within parameters. Continue statins Hypertension: Stable -Continue home meds H/o Temporal Arteritis:Follows with rheumatology as outpatient H/O Supraventricular Tachycardia S/P ablation: Stable H/O Celiac disease : Stable DVT Prophylaxis:Heparin SQ Code Status:Full code Disposition: Discharge home later today. Follow up with PCP in 3-5 days after discharge. Follow up with Cardiology as per the scheduled appointment in October 2016. Total time spent on discharge = 35 minutes. This includes examination of the patient, discharge planning, medication reconciliation, and communication with other providers. Discharge Instructions Discharge Goals Goal(s): Decrease discomfort, Improve function, Increase independence, Improve disease control, Prevent Disease Progression Activity Recommendations Activity Limitations: resume your previous activity (As Tolerated.) Lifting Limitations: none Exercise/Sports Limitations: as tolerated May Resume Sexual Activity: when tolerated Shower/Bathe: no limitations Driving or Machine Use: no limitations . Instructions / Follow-Up Instructions / Follow-Up Follow up with PCP in 3-5 days after discharge. Follow up with Cardiology as per the scheduled appointment in October 2016. Current Hospital Diet Patient's current hospital diet: AHA Diet (Heart Healthy) Discharge Diet Recommended Diet: AHA Diet (Heart Healthy) Additional Copies To Selina Moser D.O. Kopinski, Thomas O.,
[2016-09-26 15:05] VITALS: BP 139/80; PULSE 70; TEMP 36.6; O2SAT 94
[2016-09-26 15:53] VITALS: BP 101/61; PULSE 70; TEMP 36.6; O2SAT 94
== END 2016-09-26 15:45 | disposition home or self-care (01) ==
LOC: C.EDB 17:53 → C.2T 21:08 → ENRESERV 21:20
PROVIDERS: ADMIT Internal Medicine; ATTEND Emergency Medicine
DX: R07.89 Other chest pain (principal); I10 Essential (primary) hypertension; E78.5 Hyperlipidemia, unspecified; M31.6 Other giant cell arteritis; K90.0 Celiac disease; Z79.82 Long term (current) use of aspirin; Z87.891 Personal history of nicotine dependence; Z90.49 Acquired absence of other specified parts of digestive tract; Z82.49 Family history of ischemic heart disease and other diseases of the circulatory system

== ENCOUNTER 2018-05-23 19:59 | Observation (INO) ==
[2018-05-23 20:44] LABS: Basophils # (auto) 0.06 K/uL (0-0.2); Basophils % (auto) 0.9 %; Eosinophils # (auto) 0.23 K/uL (0-0.5); Eosinophils % (auto) 3.3 %; Hematocrit (blood only) 40.7 % (37-47); Hemoglobin 13.7 g/dL (12.0-16.0); Immature Granulocytes # (auto) 0.01 K/uL (0.00-0.02); Immature Granulocytes % (auto) 0.1 %; Lymphocytes # (auto) 2.14 K/uL (1.2-3.4); Lymphocytes % (auto) 30.5 %; Mean Corpuscular Hgb Conc 33.7 g/dL (32-36); Mean Corpuscular Volume 93.1 fL (80-100); Mean Platelet Volume 9.2 fL (7.4-10.4); Monocytes # (auto) 0.65 K/uL (0.11-0.59); Monocytes % (auto) 9.3 %; Neutrophils # (auto) 3.92 K/uL (1.4-6.5); Neutrophils % (auto) 55.9 %; Platelet Count 246 K/uL (130-400); RDW Coefficient of Variation 13.7 % (11.5-14.5); RDW Standard Deviation 46.9 fL (36.4-46.3); Red Blood Count 4.37 M/uL (4.2-5.4); White Blood Count 7.01 K/uL (4.8-10.8)
[2018-05-23 20:51] LABS: Partial Thromboplastin Ratio 0.9; Partial Thromboplastin Time 23.9 Seconds (21.0-31.0); Prothrombin Time 10.3 Seconds (9.0-12.0)
--- NOTE | 2018-05-23 20:58 | XRay Report ---
XR chest 1V portable CLINICAL HISTORY: Chest Pain dyspnea COMPARISON STUDY: 09/25/2016 FINDINGS: The bones soft tissues and hemidiaphragms are normal. The cardiomediastinal silhouette is n ormal. The lungs are clear. The pulmonary vasculature is normal. IMPRESSION: Negative chest. The above report was generated using voice recognition software. It may contain grammatical, syntax or spelling errors. Electronically signed by: Drew Francis M.D. 05/23/2018 8:57 PM
[2018-05-23 21:03] LABS: Alanine Aminotransferase 50 U/L (12-78); Albumin Level 3.5 gm/dl (3.4-5.0); Aspartate Aminotransferase 48 U/L (15-37); BUN Creatinine Ratio 25.7 (10-20); Blood Urea Nitrogen 24 mg/dl (7-18); Calcium 8.4 mg/dl (8.5-10.1); Carbon Dioxide 22 mmol/L (21-32); Chloride 108 mmol/L (98-107); Est GFR (African American) 73.1; Est GFR (Non-African American) 63.1; Glucose 82 mg/dl (70-99); Potassium 3.6 mmol/L (3.5-5.1); Sodium 137 mmol/L (136-145)
[2018-05-23 21:07] LABS: Albumin Globulin Ratio 0.7 (0.9-2); Alkaline Phosphatase 58 U/L (45-117); Bilirubin,Total 0.2 mg/dl (0.2-1); Globulin 4.9 gm/dl (2.5-4.0); Total Protein 8.4 gm/dl (6.4-8.2); Troponin I < 0.015 ng/ml (0-0.045)
--- NOTE | 2018-05-23 22:12 | History & Physical Report ---
Date of Service May 23, 2018 Assessment & Plan (1) Chest pain: (2) CAD (coronary artery disease): -Please refer to Dr. Almanzar's addendum for assessment and plan. History of Present Illness Chief Complaint: Chest Pain Primary Care Provider: Linette Harry 68 year old female who presents to the ED with chest pain. Patient reports she was sitting watching TV when she had sudden onset of severe mid sternal chest pain. She describes the pain as a squeezing sensation. She reports the pain radiated into the left side of her neck, shoulder, and down the left arm. She took one SL nitro and when the pain did not improve within 15 minutes, she came to the ED for further evaluation. She reports the pain continued on the car ride here but has since resolved since arriving to the ED without further interventions. Patient has history of CAD s/p LAD stent and coronary vasospasm. Patient underwent cardiac cath 02/2018 that showed patent stent and evidence of coronary vasospasm. She reports she was having very frequent episodes of chest pain and was started on low dose torsemide with much improvement in these symptoms. She reports not having chest pain in several weeks until today. She denies associedt shortness of breath, diaphoresis, nausea, or lightheadedness. Otherwise has been feeling well recently. She denies fever and chills. No abdominal pain, nausea, vomiting, or diarrhea. She denies urinary symptoms. In the ED, intial troponin is negative and EKG does not show any acute ST changes. Allergies Allergy/AdvReac Type Severity Reaction Status Date / Time Penicillins Allergy Severe TONGUE Verified 05/23/18 21:25 SWELLS oxycodone AdvReac Severe Hallucinati Verified 05/23/18 21:25 ons/Confusi on morphine AdvReac Intermediate Hypotension Verified 05/23/18 21:25 codeine AdvReac Unknown INCREASES Verified 05/23/18 21:25 PAIN Home Medications Home Medications Medication Instructions Recorded Confirmed Type alirocumab [Praluent Pen] 150 mg SUBCUT DIRECTED 05/23/18 05/23/18 History aspirin [Aspir-81] 81 mg PO QAM 05/23/18 05/23/18 History diltiazem HCl 120 mg PO QAM 05/23/18 05/23/18 History ibuprofen 400 mg PO HS 05/23/18 05/23/18 History nitroglycerin [Nitrostat] 0.4 mg SUBLINGUAL DIRECTED PRN 05/23/18 05/23/18 History torsemide 2.5 mg PO 3XWK 05/23/18 05/23/18 History Past Med/Surg History Medical History SVT (supraventricular tachycardia) (Chronic) CKD (chronic kidney disease), stage III (Chronic) Celiac disease (Chronic) CAD (coronary artery disease) (Chronic) s/p LAD stent cath 02/2018 - demonstrated patent LAD stent, evidence of coronary vasospasm Dyslipidemia (Chronic) Acute coronary syndrome (Inactive) Celiac disease (Inactive) Coronary artery disease (Inactive) Coronary vasospasm (Inactive) Hyperlipidemia (Inactive) Raynaud's disease (Inactive) Surgical History H/O prior ablation treatment (Chronic) History of tonsillectomy and adenoidectomy (Chronic) History of cholecystectomy (Chronic) H/O heart artery stent (Inactive) History of cholecystectomy (Inactive) History of tonsillectomy (Inactive) Social History Preferred Language: [place] Communication Ability: Effective Beliefs That Will Affect Care: None Current Living Situation: Spouse Other Information That Helps Us Care for You: No Feels Safe at Home: Yes Smoking Status: Former smoker Hx Alcohol Use: Yes Hx Substance Use: No Review of Systems ROS per HPI, all other systems reviewed and negative Physical Exam Vital Signs (Past 24 Hours): Last Vital Signs Temp 36.8 C 05/23/18 20:05 Pulse 78 05/23/18 20:05 Resp 22 05/23/18 20:05 BP 114/66 05/23/18 20:05 Pulse Ox 96 05/23/18 20:05 Constitutional: WD/WN, vitals as above Eyes: PERRL, conjunctivae normal, anicteric sclerae ENMT: Ears: no external ear abnormality Nose: no external nose abnormality Mouth: + poor dentition Respiratory: normal respiratory effort, lungs clear to auscultation Cardiovascular: Rate/Rhythm: regular rate and regular rhythm Vessels: normal peripheral pulses Extremities: no edema Gastrointestinal (Abdomen): normal bowel sounds, soft, nontender, no hepatosplenomegaly Musculoskeletal: no cyanosis or clubbing, extremities motor strength 5/5 Skin: no rashes, warm and dry Neurologic: PERRL, EOMI, accommodation nl, no face palsy, no dysarthria Psychiatric: A+Ox3, euthymic affect Results & Data Laboratory Results Laboratory Last Values WBC 7.01 K/uL (4.8-10.8) 05/23/18 20:24 RBC 4.37 M/uL (4.2-5.4) 05/23/18 20:24 Hgb 13.7 g/dL (12.0-16.0) 05/23/18 20:24 Hct 40.7 % (37-47) 05/23/18 20:24 MCV 93.1 fL (80-100) 05/23/18 20:24 MCH 31.4 pg (25-34) 05/23/18 20:24 MCHC 33.7 g/dL (32-36) 05/23/18 20:24 RDW Std Deviation 46.9 fL (36.4-46.3) H 05/23/18 20:24 RDW Coeff of Lionel 13.7 % (11.5-14.5) 05/23/18 20:24 Plt Count 246 K/uL (130-400) 05/23/18 20:24 MPV 9.2 fL (7.4-10.4) 05/23/18 20:24 Immature Gran % (Auto) 0.1 % 05/23/18 20:24 Neut % (Auto) 55.9 % 05/23/18 20:24 Lymph % (Auto) 30.5 % 05/23/18 20:24 Bacon % (Auto) 9.3 % 05/23/18 20:24 Eos % (Auto) 3.3 % 05/23/18 20:24 Baso % (Auto) 0.9 % 05/23/18 20:24 Immature Gran # (Auto) 0.01 K/uL (0.00-0.02) 05/23/18 20:24 Neut # (Auto) 3.92 K/uL (1.4-6.5) 05/23/18 20:24 Lymph # (Auto) 2.14 K/uL (1.2-3.4) 05/23/18 20:24 Bacon # (Auto) 0.65 K/uL (0.11-0.59) H 05/23/18 20:24 Eos # (Auto) 0.23 K/uL (0-0.5) 05/23/18 20:24 Baso # (Auto) 0.06 K/uL (0-0.2) 05/23/18 20:24 PT 10.3 Seconds (9.0-12.0) 05/23/18 20:24 INR 1.0 (0.9-1.1) 05/23/18 20:24 APTT 23.9 Seconds (21.0-31.0) 05/23/18 20:24 PTT Ratio 0.9 05/23/18 20:24 Sodium 137 mmol/L (136-145) 05/23/18 20:24 Potassium 3.6 mmol/L (3.5-5.1) 05/23/18 20:24 Chloride 108 mmol/L (98-107) H 05/23/18 20:24 Carbon Dioxide 22 mmol/L (21-32) 05/23/18 20:24 Anion Gap 7.0 (3-11) 05/23/18 20:24 BUN 24 mg/dl (7-18) H 05/23/18 20:24 Creatinine 0.92 mg/dl (0.6-1.2) 05/23/18 20:24 Est Cr Clr Drug Dosing 45.0 ml/min 05/23/18 20:24 Est GFR ( Amer) 73.1 05/23/18 20:24 Est GFR (Non-Af Amer) 63.1 05/23/18 20:24 BUN/Creatinine Ratio 25.7 (10-20) H 05/23/18 20:24 Glucose 82 mg/dl (70-99) 05/23/18 20:24 Calcium 8.4 mg/dl (8.5-10.1) L 05/23/18 20:24 Total Bilirubin 0.2 mg/dl (0.2-1) 05/23/18 20:24 AST 48 U/L (15-37) H 05/23/18 20:24 ALT 50 U/L (12-78) 05/23/18 20:24 Alkaline Phosphatase 58 U/L (45-117) 05/23/18 20:24 POC Troponin I < 0.03 ng/ml (0-0.045) 05/23/18 20:35 Troponin I < 0.015 ng/ml (0-0.045) 05/23/18 20:24 Total Protein 8.4 gm/dl (6.4-8.2) H 05/23/18 20:24 Albumin 3.5 gm/dl (3.4-5.0) 05/23/18 20:24 Globulin 4.9 gm/dl (2.5-4.0) H 05/23/18 20:24 Albumin/Globulin Ratio 0.7 (0.9-2) L 05/23/18 20:24 Lipase 122 U/L (73-393) 05/23/18 20:24 Diagnostic Findings CXR IMPRESSION: Negative chest. Code Status & VTE Plan VTE Prophylaxis Plan VTE Prophylaxis will be ordered: Yes Supervising Physician Co-Signing Physician Notes IM ATTENDING : Patient seen and examined. History obtained from patient and records. Preceding documentation by ULISES Paulino reviewed. FINAL ASSESSMENT AND PLAN as follows : Chest pain Possible unstable angina hx CAD status post stent History coronary vasospasm as per records SVT status post ablation Hypertension, stable Hyperlipidemia on Praluent tx Past tobacco abuse OBS Medical telemetry Continue aspirin, CCB medications; nitro as needed Follow troponin Cardiology consult RE chest pain DVT prophylaxis. Lovenox subcu Full code
--- NOTE | 2018-05-23 22:15 | Emergency Department Note ---
Entered by Edita Morales acting as a scribe for History of Present Illness General Chief complaint: Chest Pain Stated complaint: CHEST PAIN, LEFT ARM PAIN- CARDIAC HX Source: patient Mode of arrival: ambulatory Limitations: no limitations History of Present Illness Provider complaint: Chest pain Onset (ago): hour(s) 1 Location: chest Severity: moderate Pain Consistency: + now resolved Maximum Pain Intensity: 3 Quality: + other ("squeezing") Associated symptoms: + denies other symptoms Treatments prior to arrival: other (nitroglycerin) Patient is 68 year old female presenting to the ED with chest pain beginning x1 hour ago. Patient states she was sitting in a chair when her pain began. Pain is moderate in severity and was constant since onset for a few minutes. She describes the pain as squeezing, with radiation down the left arm and into her jaw. She shares she did take a nitro, which did not improve pain initially. She notes she has a history of heart spasms, but todays CP felt different. Patient denies any cough, cold sx, fever, chills, nausea, or any other complaints or concerns at this time. She denies any recent travel, trauma or illness. She notes she did have blood work today, noticing her LDLs did not decrease after recent medication change. She lastly notes she does take aspirin QD and a diuretic every other day. Home Medications Home Medications Medication Instructions Recorded Confirmed Type alirocumab [Praluent Pen] 150 mg SUBCUT DIRECTED 05/23/18 05/23/18 History aspirin [Aspir-81] 81 mg PO QAM 05/23/18 05/23/18 History diltiazem HCl 120 mg PO QAM 05/23/18 05/23/18 History ibuprofen 400 mg PO HS 05/23/18 05/23/18 History nitroglycerin [Nitrostat] 0.4 mg SUBLINGUAL DIRECTED PRN 05/23/18 05/23/18 History torsemide 2.5 mg PO 3XWK 05/23/18 05/23/18 History Allergies Allergy/AdvReac Type Severity Reaction Status Date / Time Penicillins Allergy Severe TONGUE Verified 05/23/18 21:25 SWELLS oxycodone AdvReac Severe Hallucinati Verified 05/23/18 21:25 ons/Confusi on morphine AdvReac Intermediate Hypotension Verified 05/23/18 21:25 codeine AdvReac Unknown INCREASES Verified 05/23/18 21:25 PAIN Past Med/Surg History Medical History SVT (supraventricular tachycardia) (Chronic) CKD (chronic kidney disease), stage III (Chronic) Celiac disease (Chronic) CAD (coronary artery disease) (Chronic) s/p LAD stent cath 02/2018 - demonstrated patent LAD stent, evidence of coronary vasospasm Dyslipidemia (Chronic) Acute coronary syndrome (Inactive) Celiac disease (Inactive) Coronary artery disease (Inactive) Coronary vasospasm (Inactive) Hyperlipidemia (Inactive) Raynaud's disease (Inactive) Surgical History H/O prior ablation treatment (Chronic) History of tonsillectomy and adenoidectomy (Chronic) History of cholecystectomy (Chronic) H/O heart artery stent (Inactive) History of cholecystectomy (Inactive) History of tonsillectomy (Inactive) Social History Preferred Language: [place] Communication Ability: Effective Beliefs That Will Affect Care: None Current Living Situation: Spouse Feels Safe at Home: Yes Smoking Status: Never smoker Hx Alcohol Use: Yes Hx Substance Use: No Review of Systems See HPI for pertinent positives & negatives. and A total of 10 systems reviewed and were otherwise negative Physical Exam Vital Signs Vital Signs - 24 hr 05/23/18 20:05 05/23/18 22:03 Temperature 36.8 C Temperature Source Oral Sepsis Recent Fever Within 48 Hours No Sepsis Action Taken by Nursing No Action Required Pulse Rate 78 Pulse Rate [Apical] 77 Respiratory Rate 22 18 Respiratory Effort / Characteristics Non-Labored Spontaneous Respiratory Depth Normal Blood Pressure 114/66 Blood Pressure [Left Arm] 137/77 Blood Pressure Mean 82 Blood Pressure Mean [Left Arm] 97 Pulse Oximetry 96 94 Oxygen Delivery Method Room Air Room Air GENERAL: Awake, alert, well-appearing, in no distress HENT: Normocephalic, atraumatic. EYES: Normal conjunctiva. Sclera non-icteric. NECK: Supple. No nuchal rigidity. RESPIRATORY: Clear to auscultation. No wheezes. Normal respiratory effort. CARDIAC: Normal rate. Normal rhythm. Extremities warm and well perfused. GI: Soft, non-distended. No tenderness to palpation. No rebound or guarding. MUSCULOSKELETAL: Atraumatic. Chest examination reveals no tenderness. LOWER EXTREMITIES: Calves are equal size bilaterally and non-tender. No edema NEURO: Normal sensorium. No sensory or motor deficits noted. No facial droop. SKIN: Warm and dry. No rash or jaundice noted. Course 2019: Past medical records reviewed. The patient was evaluated in room A12B, and a complete history and physical examination were performed. 2112: Updated patient on lab and radiology results. Patient will be admitted to the hospital for further evaluation. Patient is agreeable to plan. 2114: Discussed case with Dr. Garcia, who accepts patient for admission. Administered Medications Medical Decision Making Differential Diagnosis Differential diagnosis: Etiologies such as cardiac ischemia, aortic dissection, pulmonary embolism, pneumonia, pneumothorax, musculoskeletal, infections, pericarditis, myocarditis, esophageal rupture, gastrointestinal, as well as others were entertained. Medical Records Attestation: I reviewed the patient's medical records. Home Medications Current Medication List: was personally reviewed by me Laboratory Data Attestation: I reviewed the patient's lab results. Result diagrams: 05/23/18 20:24 05/23/18 20:24 Lab Results 05/23/18 05/23/18 05/23/18 Range/Units 20:24 20:24 20:24 WBC 7.01 (4.8-10.8) K/uL RBC 4.37 (4.2-5.4) M/uL Hgb 13.7 (12.0-16.0) g/dL Hct 40.7 (37-47) % MCV 93.1 (80-100) fL MCH 31.4 (25-34) pg MCHC 33.7 (32-36) g/dL RDW Std Deviation 46.9 H (36.4-46.3) fL RDW Coeff of Lionel 13.7 (11.5-14.5) % Plt Count 246 (130-400) K/uL MPV 9.2 (7.4-10.4) fL Immature Gran % (Auto) 0.1 % Neut % (Auto) 55.9 % Lymph % (Auto) 30.5 % Smyth % (Auto) 9.3 % Eos % (Auto) 3.3 % Baso % (Auto) 0.9 % Immature Gran # (Auto) 0.01 (0.00-0.02) K/uL Neut # (Auto) 3.92 (1.4-6.5) K/uL Lymph # (Auto) 2.14 (1.2-3.4) K/uL Smyth # (Auto) 0.65 H (0.11-0.59) K/uL Eos # (Auto) 0.23 (0-0.5) K/uL Baso # (Auto) 0.06 (0-0.2) K/uL PT 10.3 (9.0-12.0) Seconds INR 1.0 (0.9-1.1) APTT 23.9 (21.0-31.0) Seconds PTT Ratio 0.9 Sodium 137 (136-145) mmol/L Potassium 3.6 (3.5-5.1) mmol/L Chloride 108 H (98-107) mmol/L Carbon Dioxide 22 (21-32) mmol/L Anion Gap 7.0 (3-11) BUN 24 H (7-18) mg/dl Creatinine 0.92 (0.6-1.2) mg/dl Est Cr Clr Drug Dosing 45.0 ml/min Est GFR ( Amer) 73.1 Est GFR (Non-Af Amer) 63.1 BUN/Creatinine Ratio 25.7 H (10-20) Glucose 82 (70-99) mg/dl Calcium 8.4 L (8.5-10.1) mg/dl Total Bilirubin 0.2 (0.2-1) mg/dl AST 48 H (15-37) U/L ALT 50 (12-78) U/L Alkaline Phosphatase 58 (45-117) U/L POC Troponin I (0-0.045) ng/ml Troponin I < 0.015 (0-0.045) ng/ml Total Protein 8.4 H (6.4-8.2) gm/dl Albumin 3.5 (3.4-5.0) gm/dl Globulin 4.9 H (2.5-4.0) gm/dl Albumin/Globulin Ratio 0.7 L (0.9-2) Lipase 122 (73-393) U/L 05/23/18 Range/Units 20:35 WBC (4.8-10.8) K/uL RBC (4.2-5.4) M/uL Hgb (12.0-16.0) g/dL Hct (37-47) % MCV (80-100) fL MCH (25-34) pg MCHC (32-36) g/dL RDW Std Deviation (36.4-46.3) fL RDW Coeff of Lionel (11.5-14.5) % Plt Count (130-400) K/uL MPV (7.4-10.4) fL Immature Gran % (Auto) % Neut % (Auto) % Lymph % (Auto) % Smyth % (Auto) % Eos % (Auto) % Baso % (Auto) % Immature Gran # (Auto) (0.00-0.02) K/uL Neut # (Auto) (1.4-6.5) K/uL Lymph # (Auto) (1.2-3.4) K/uL Smyth # (Auto) (0.11-0.59) K/uL Eos # (Auto) (0-0.5) K/uL Baso # (Auto) (0-0.2) K/uL PT (9.0-12.0) Seconds INR (0.9-1.1) APTT (21.0-31.0) Seconds PTT Ratio Sodium (136-145) mmol/L Potassium (3.5-5.1) mmol/L Chloride (98-107) mmol/L Carbon Dioxide (21-32) mmol/L Anion Gap (3-11) BUN (7-18) mg/dl Creatinine (0.6-1.2) mg/dl Est Cr Clr Drug Dosing ml/min Est GFR ( Amer) Est GFR (Non-Af Amer) BUN/Creatinine Ratio (10-20) Glucose (70-99) mg/dl Calcium (8.5-10.1) mg/dl Total Bilirubin (0.2-1) mg/dl AST (15-37) U/L ALT (12-78) U/L Alkaline Phosphatase (45-117) U/L POC Troponin I < 0.03 (0-0.045) ng/ml Troponin I (0-0.045) ng/ml Total Protein (6.4-8.2) gm/dl Albumin (3.4-5.0) gm/dl Globulin (2.5-4.0) gm/dl Albumin/Globulin Ratio (0.9-2) Lipase (73-393) U/L Imaging Data Radiologist's Impression: XR chest 1V portable CLINICAL HISTORY: Chest Pain dyspnea COMPARISON STUDY: 09/25/2016 FINDINGS: The bones soft tissues and hemidiaphragms are normal. The cardiomediastinal silhouette is normal. The lungs are clear. The pulmonary vasculature is normal. IMPRESSION: Negative chest. The above report was generated using voice recognition software. It may contain grammatical, syntax or spelling errors. Electronically signed by: Drew Francis M.D. 05/23/2018 8:57 PM ECG Data Attestation: I personally reviewed and interpreted this ECG as follows: Indication: chest pain Rate (beats per minute): 75 Rhythm: normal sinus Findings: + other (normal intervals) and + nonspecific-ST abn; no PVC and no ST elevation Comparison ECG Date: from (09/26/16) Change: no significant change Blood Pressure Blood Pressure Findings: Normal blood pressure Blood Pressure Disposition: elevated BP felt to be situational MDM Narrative Patient is a 68-year-old female with significant and extensive past cardiac history presenting today complaining of onset of chest pain with tightness radiating to her neck and arm around [phone] this evening. Minimal relief with the nitro but resolved at the time of arrival here. No trauma recent illness reported. Patient denies shortness of breath or pain now. Patient states while she does have anginal pain at times this was different and somewhat more extre me. States she did get some blood work back today stating that her cholesterol did not drop as expected and this stress may have induced it. This occurred while she was resting. EKG is without gross change. Troponin and [id number] troponin completed here negative but very soon after pain event. Chest x-ray completed and unremarkable. Doubt this is pneumonia, pneumothorax, dissection, or PE. Laboratory studies otherwise unremarkable without evidence of hepatitis, pancreatitis, or significant leukocytosis. No significant troponin elevation is noted and the patient is pain-free at the time of evaluation. Given the patient's extensive cardiac history believe monitoring overnight is indicated and discussed with hospitalist. Impression & Plan Chest pain Discharge Plan Visit Data Chief Complaint: Chest Pain Stated Complaint: CHEST PAIN, LEFT ARM PAIN- CARDIAC HX ED Provider: Renny Bradford Discharge Problem: Chest pain Forms Stand Alone Forms: Call Back Authorization, My [facility] [employer] Prescriptions Prescriptions: No Action torsemide 5 mg tablet 2.5 mg PO 3XWK RF: 0 aspirin [Aspir-81] 81 mg Tablet,Delayed Release (Dr/Ec) 81 mg PO QAM RF: 0 ibuprofen 200 mg Tablet 400 mg PO HS RF: 0 nitroglycerin [Nitrostat] 0.4 mg Tablet, Sublingual 0.4 mg Sublingual DIRECTED PRN (Reason: Chest Pain) RF: 0 diltiazem HCl 120 mg Tablet Extended Release 24 Hr 120 mg PO QAM RF: 0 Praluent Pen 150 mg/mL Pen Injector 150 mg SUBCUT DIRECTED RF: 0 The scribe's documentation has been prepared under my direction and personally reviewed by me in its entirety. I confirm that the note above accurately reflec ts all work, treatment, procedures, and medical decision making performed by me.
[2018-05-23 22:50] LABS: Magnesium 2.1 mg/dl (1.8-2.4)
[2018-05-23] MEDS ORDERED: TRAMADOL HCL 50 MG TABLET PO PRN (23:27)
[2018-05-23] MEDS ORDERED: ACETAMINOPHEN 325 MG TAB PO PRN (23:27)
[2018-05-23] MEDS ORDERED: PROCHLORPERAZINE 5 MG in SYRINGE 4 ML IV PRN (23:27)
[2018-05-23] MEDS ORDERED: NITROGLYCERIN SL 0.4 MG/TAB TAB SL PRN (23:27)
[2018-05-23] MEDS ORDERED: MoRPHine SULFATE 4 MG/ML 1 ML CARP\\VIAL IV PRN (23:27)
[2018-05-23] MEDS ORDERED: LORazepam 0.25 MG/0.5 ML VIAL IV PRN (23:27)
[2018-05-24] MEDS ORDERED: D5NSS + 20MEQ KCL 20 MEQ/1,000 ML BAG IV SCH (00:01)
[2018-05-24 03:28] LABS: Basophils # (auto) 0.03 K/uL (0-0.2); Basophils % (auto) 0.5 %; Eosinophils # (auto) 0.14 K/uL (0-0.5); Eosinophils % (auto) 2.2 %; Hematocrit (blood only) 38.9 % (37-47); Hemoglobin 12.8 g/dL (12.0-16.0); Immature Granulocytes # (auto) 0.01 K/uL (0.00-0.02); Immature Granulocytes % (auto) 0.2 %; Lymphocytes # (auto) 1.49 K/uL (1.2-3.4); Lymphocytes % (auto) 23.4 %; Mean Corpuscular Hgb Conc 32.9 g/dL (32-36); Mean Corpuscular Volume 93.1 fL (80-100); Mean Platelet Volume 9.2 fL (7.4-10.4); Monocytes # (auto) 0.87 K/uL (0.11-0.59); Monocytes % (auto) 13.7 %; Neutrophils # (auto) 3.82 K/uL (1.4-6.5); Platelet Count 239 K/uL (130-400); RDW Coefficient of Variation 13.8 % (11.5-14.5); RDW Standard Deviation 47.1 fL (36.4-46.3); Red Blood Count 4.18 M/uL (4.2-5.4); White Blood Count 6.36 K/uL (4.8-10.8)
[2018-05-24 03:39] LABS: Partial Thromboplastin Ratio 0.9; Partial Thromboplastin Time 24.6 Seconds (21.0-31.0)
[2018-05-24 03:44] LABS: Blood Urea Nitrogen 24 mg/dl (7-18); Calcium 8.2 mg/dl (8.5-10.1); Carbon Dioxide 27 mmol/L (21-32); Chloride 110 mmol/L (98-107); Creatinine Clr Calc Pharmacy 45.5 ml/min; Est GFR (African American) 74.1; Est GFR (Non-African American) 63.9; Glucose 98 mg/dl (70-99); Potassium 3.8 mmol/L (3.5-5.1); Sodium 141 mmol/L (136-145)
[2018-05-24 03:49] LABS: Troponin I < 0.015 ng/ml (0-0.045)
[2018-05-24] MEDS ORDERED: CALCIUM GLUCONATE 10% 1,000 MG in SODIUM CHLORIDE 0.9% 50 ML IV STA (03:56)
[2018-05-24] MEDS: ENOXAPARIN INJ 30 MG/0.3 ML SYR SQ SCH ×2 (08:13→08:16)
[2018-05-24] MEDS ORDERED: ASPIRIN 81 MG ECTAB PO SCH (09:00)
[2018-05-24] MEDS ORDERED: dilTIAZem ER 120 MG CAPCR PO SCH (09:00)
--- NOTE | 2018-05-24 09:25 | Cardiology Consultation ---
Date of Consultation May 24, 2018 Assessment & Plan (1) Chest pain: Initial evaluation for acute coronary syndrome is negative. Troponins undetectable with nonischemic ECG. No dysrhythmias on telemetry. Resting 2D transthoracic echocardiogram will be performed. If there are no regional wall motion abnormalities we will proceed with exercise stress echocardiography for further risk stratification. (2) Coronary artery vasospasm: Consider titration of diltiazem CD to 180 mg daily pending result of stress echo. (3) CAD (coronary artery disease): Recent cardiac catheterization demonstrated patent LAD stent, nonobstructive CAD, and coronary vasospasm. (4) Diastolic dysfunction, left ventricle: Patient noted to have elevated left ventricular end-diastolic pressure during recent cardiac catheterization prompting prescription of low-dose diuretic therapy. She appears compensated and euvolemic. No medication changes at this time. (5) SVT (supraventricular tachycardia): No dysrhythmias on telemetry. (6) H/O prior ablation treatment: History of Present Illness Reason for Consultation: Chest pain Requesting Physician: Ely Lino DO Attending Physician: Ely Lino DO History of Present Illness Patient seen and examined at the bedside. Reports episode of substernal chest discomfort and pressure occurring at rest yesterday. Discomfort radiated to her neck and left arm. No associated shortness of breath. She took one sublingual nitroglycerin without significant relief. Discomfort lasted approximately 20 minutes. Chest pain had resolved upon arrival to the ER. Cardiac enzymes are negative x3 sets. No ischemic ECG changes. Patient pain-free overnight. Recent history significant for equivocal stress testing January 2018 followed by cardiac catheterization demonstrating patent LAD stent with coronary vasospasm. Patient noted to have elevated left ventricular pressure and prescribe low-dose diuretic therapy. Over the past 4 months her intermittent chest discomfort is actually improved. Denies exertional chest pain or unusual shortness of breath recently. Has used sublingual nitroglycerin rarely. Denies orthopnea, PND, or lower extremity edema. Currently resting comfortably without complaints. Cardiac catheterization February 07, 2018 report summary: Ostial LAD vasospasm resolved with IC nitroglycerin Patent proximal LAD stent. 40% proximal RCA - possibly spasm Elevated left ventricular end-diastolic pressure: 19mmHg Exercise stress echo report January 31, 2018: Exercise capacity is average . Heart rate response to stress was normal. Blood pressure response to exercise was hypertensive. Atypical chest pain was noted with stress. Dyspnea was noted with stress. Symptoms were relieved by nitroglycerin post stress. Abnormal upsloping ST-depression of 2 mm or more is noted in inferior leads. The left ventricular wall motion is normal. The left ventricular wall motion with stress is normal. The left ventricular ejection fraction increases normally with stress. The left ventricular systolic function is normal. The qualitative LV ejection fraction is 60-64% (normal). The stress echo is indeterminate for inducible ischemia. Allergies Allergy/AdvReac Type Severity Reaction Status Date / Time Penicillins Allergy Severe TONGUE Verified 05/23/18 21:25 SWELLS oxycodone AdvReac Severe Hallucinati Verified 05/23/18 21:25 ons/Confusi on morphine AdvReac Intermediate Hypotension Verified 05/23/18 21:25 codeine AdvReac Unknown INCREASES Verified 05/23/18 21:25 PAIN Home Medications Home Medications Medication Instructions Recorded Confirmed Type alirocumab [Praluent Pen] 150 mg SUBCUT DIRECTED 05/23/18 05/23/18 History aspirin [Aspir-81] 81 mg PO QAM 05/23/18 05/23/18 History diltiazem HCl 120 mg PO QAM 05/23/18 05/23/18 History ibuprofen 400 mg PO HS 05/23/18 05/23/18 History nitroglycerin [Nitrostat] 0.4 mg SUBLINGUAL DIRECTED PRN 05/23/18 05/23/18 History torsemide 2.5 mg PO 3XWK 05/23/18 05/23/18 History Patient History Medical History SVT (supraventricular tachycardia) (Chronic) CKD (chronic kidney disease), stage III (Chronic) Celiac disease (Chronic) CAD (coronary artery disease) (Chronic) s/p LAD stent cath 02/2018 - demonstrated patent LAD stent, evidence of coronary vasospasm Dyslipidemia (Chronic) Acute coronary syndrome (Inactive) Celiac disease (Inactive) Coronary artery disease (Inactive) Coronary vasospasm (Inactive) Hyperlipidemia (Inactive) Raynaud's disease (Inactive) Surgical History H/O prior ablation treatment (Chronic) History of tonsillectomy and adenoidectomy (Chronic) History of cholecystectomy (Chronic) H/O heart artery stent (Inactive) History of cholecystectomy (Inactive) History of tonsillectomy (Inactive) Family History Mother CAD (coronary artery disease) Social History Preferred Language: Polish Communication Ability: Effective Beliefs That Will Affect Care: None Current Living Situation: Spouse Other Information That Helps Us Care for You: No Feels Safe at Home: Yes Smoking Status: Former smoker Hx Alcohol Use: Yes Hx Substance Use: No Review of Systems Pertinent positives noted per HPI, conference of 10 system review is otherwise negative. Physical Exam Vital Signs (Past 24 Hours): Last Vital Signs Temp 36.8 C 05/24/18 07:42 Pulse 71 05/24/18 07:50 Resp 18 05/24/18 07:42 BP 131/77 05/24/18 07:42 Pulse Ox 94 05/24/18 07:42 Physical Exam: General: NAD, AAO x3, well nourished. HEENT: Normocephalic. Atraumatic. Conjunctiva pink, no scleral icterus. Neck: No carotid bruits, the carotid upstrokes are brisk. No JVD. No HJR Heart: Regular normal S-1 and S-2 no S-3 or S-4 gallop. No murmurs or rub appreciated. PMI is not displaced. No RV heave. Lungs: Clear bilateral without rales , rhonchi, or wheeze. Abdomen: Normal bowel sounds. Soft. Nontender. No masses or organomegaly. No abdominal bruits. Extremities: No clubbing, cyanosis, or edema. Pulses: radial=2/4, Dorsalis pedis =2/4, posterior tibial=2/4. Neuro: Cranial nerves grossly intact. No focal motor deficit. (1) Chest pain Chest pain type: precordial pain Qualified Code(s): R07.2 - Precordial pain (2) CAD (coronary artery disease) Coronary Disease-Associated Artery/Lesion type: [place] artery Associated angina: with angina and documented spasm [place] vs. transplanted heart: [place] heart Qualified Code(s): I25.111 - Atherosclerotic heart disease of [place] coronary artery with angina pectoris with documented spasm
[2018-05-24] MEDS ORDERED: MIDAZOLAM HCL 1 MG/ML 2ML VIAL ONE (13:01)
[2018-05-24] MEDS ORDERED: NiCARDipine HCL INJ 2.5 MG/ML 10 ML AMP ONE (13:02)
[2018-05-24] MEDS ORDERED: fentaNYL citrate 100 MCG/2 ML VIAL ONE (13:02)
[2018-05-24] MEDS ORDERED: HEPARIN (PORCINE) 1000 UNIT/ML 10 ML (CATH LAB USE ONLY) ONE (13:02)
[2018-05-24] MEDS ORDERED: NITROGLYCERIN/D5W 100MCG/ML 20ML SYR ONE (13:03)
--- NOTE | 2018-05-24 14:04 | Pre Anesthesia Assessment ---
Date of Service May 24, 2018 Pre Sedation Assessment Vital Signs Temp Pulse Pulse Resp BP BP BP 05/24/18 11:50 36.5 C 71 20 132/78 05/24/18 07:50 71 05/24/18 07:42 36.8 C 95 H 18 131/77 05/24/18 04:04 36.7 C 80 18 105/69 05/24/18 00:45 78 05/23/18 23:22 36.6 C 76 18 132/77 05/23/18 23:03 81 18 132/73 05/23/18 22:03 77 18 137/77 05/23/18 20:05 36.8 C 78 22 114/66 Pulse Ox 05/24/18 11:50 94 05/24/18 07:50 05/24/18 07:42 94 05/24/18 04:04 94 05/24/18 00:45 05/23/18 23:22 93 05/23/18 23:03 95 05/23/18 22:03 94 05/23/18 20:05 96 Cardiovascular RRR, no murmur, no edema Respiratory normal respiratory effort, lungs clear to auscultation Pre-Sedation Airway Assessment Smoking Status: Former smoker Hx Sleep Apnea: No Hx Difficult Intubation: No Short, Thick Neck: No Thyromental Distance: > or= 3.5 Finger Breadths Oral Cavity: + WNL Mallampati Class: III Procedure Planning Contraindications for Sedation: none Current Medications Reviewed: Yes Notes The planned sedation has been discussed with the patient. Informed Consent was obtained. I have identified the patient, determined the appropriateness of sedation and have assessed the patient immediately prior to the procedure. All medicine(s) and interventions are by my order.
--- NOTE | 2018-05-24 14:04 | Post Anesthesia Assessment ---
Date of Service May 24, 2018 Post Sedation Assessment Vital Signs Temp Pulse Pulse Resp BP BP BP 05/24/18 11:50 36.5 C 71 20 132/78 05/24/18 07:50 71 05/24/18 07:42 36.8 C 95 H 18 131/77 05/24/18 04:04 36.7 C 80 18 105/69 05/24/18 00:45 78 05/23/18 23:22 36.6 C 76 18 132/77 05/23/18 23:03 81 18 132/73 05/23/18 22:03 77 18 137/77 05/23/18 20:05 36.8 C 78 22 114/66 Pulse Ox 05/24/18 11:50 94 05/24/18 07:50 05/24/18 07:42 94 05/24/18 04:04 94 05/24/18 00:45 05/23/18 23:22 93 05/23/18 23:03 95 05/23/18 22:03 94 05/23/18 20:05 96 Recovery Score Activity: Moves 4 extremities Respiration: Deep Breath/Cough Circulation: +/-20% PreAnes Value Consciousness: Fully Awake Oxygen Saturation: O2 needed for >90% Discharge Sedation Level of Care: Fast Track Phase II Post Sedation Plan On clinical assessment, the patient appears to have tolerated the sedation without complications. Patient is recovering as anticipated. Patient will continue to be monitored by nursing and may be discharged when sedation discharge criteria are met per below protocol. Upon Completions of procedure and additional 15 minutes continue every 5 minute vital signs and the P.A.R. score; then discharge to a Phase I or Fast Track to Phase II per the following guidelines: * Discharge Patient to appropriate Phase II area if PAR is 8 or greater or return to pre- procedure baseline. The post - procedure orders will be as directed. * If PAR score is less than 8 or not return to pre-procedure baseline then patient will follow Phase I monitoring till PAR is reached for Phase II. The Phase I may be done in procedure room or may call to secure a Phase I area. * If naloxone or flumazenil are used for reversal, hold in Phase I for continued monitoring from when last reversal dose was given for a minimum of 60 minutes or longer pending the nurse and/or physician discretion of patient condition before discharge to Phase II. Please call the Sedation Physician to re-evaluate and complete post-note for discharge to Phase II area. Do NOT discharge from procedure sedation or Phase 1 until post- sedation evaluation note is complete by procedure /sedation MD Sedation Discharge Instructions to be given to the patient at discharge to home.
--- NOTE | 2018-05-24 14:11 | Cardiac Catheterization ---
Cardiac Cath Procedure Full Procedure Date May 24, 2018 Pre-Procedure Diagnosis Pre-Procedure Diagnosis: Positive Stress Test AUC Score AUC Score: 7 Post-Procedure Diagnosis Post-Procedure Diagnosis: Mild CAD and Normal Intracardiac Pressures Procedure(s) Performed Procedure(s) Performed: Coronary Angiography, Left Heart Cath and Femoral Artery Angiography Italian Teacher David Morales MD Clinical Trial Educator(s) Glunt Estimated Blood Loss Estimated Blood Loss: 5 Medication(s) Medication(s): Fentanyl, Lidocaine 1% and Versed Summary of Findings Indication: Abnormal stress test, chest pain Access: 5 Fr right common femoral artery Catheters: JL4, JR4 Findings: LM -angiographically normal LAD -20-30% ostial stenosis, widely patent proximal LAD stent, mid to distal vessel without significant disease. Moderate first diagonal without disease Circumflex -moderate caliber vessel, luminal irregularities. Moderate caliber OM's and left PLB without significant disease. RCA -dominant, 20-30% proximal, mid segment luminal irregularities. Right PDA without disease LVEDP -10 Arterial Closure: Mynx Summary: 1. Mild nonobstructive coronary artery disease -Widely patent proximal LAD stent 20-30% ostial LAD 20-30% proximal RCA 2. Normal intracardiac filling pressure Recommendations: Continue long-term coronary vasodilators for vasospastic angina Continued ASCVD risk factor modification Follow-up with Dr. Harry Hemodynamics Rest Ao:: 115/56/80 Final Ao: 116/56/81 LV: 124/10 Recommendations Recommendations: Medical Therapy and/or Counseling Specimens Specimens: None Radiation Exposure (mGy) 405 Contrast (mls) 40 Fluids (cc crystalloids) Fluids (cc crystalloids): 39 Drains Drains: None Anesthesia Moderate Procedural Complication(s) None Disposition PCU ACC Data: Siding Stapler Cardiac Status Clinical evaluation leading to the procedure CAD Presenation: Positive Stress Test Anginal Classification: CCS IV Heart Failure: No Cardiogenic Shock within 24 Hours: No Cardiac Arrest within 24 Hours: No Imaging Studies Past 6 Months: Yes Stress Studies Past 6 Months: Yes Stress Echocardiogram: Yes - Positive Diagnostic Physicians Name: David Morales MD Status: Elective Closure Device Percutaneous Entry Location: Radial Closure Device: Mynx Recommendations: Medical Therapy and/or Counseling Intraprocedure Events Significant Disection: No Perforation: No
[2018-05-24] MEDS ORDERED: SODIUM CHLORIDE 0.9% 1000ML 1,000 ML IV SCH (14:15)
--- NOTE | 2018-05-24 15:37 | Cardiology Progress Note ---
Date of Service May 24, 2018 Assessment & Plan (1) Coronary artery vasospasm: Patient reassessed post cardiac cath in coverage of Dr Harry. Cardiac cath with no obstructive disease for which PCI is indicated. Will proceed with increasing her diltiazem for treatment of vasospasm. Will increase diltiazem from 120 mg daily to [address] Harry sending order for new dose to [facility]. If patient recovers post cath as anticipated , OK for discharge today. Pt agreeable to plan as above, I will discuss with Dr Lino of the hospitalist service. Physical Exam Vital Signs (Past 24 Hours): Last Vital Signs Temp 36.9 C 05/24/18 14:42 Pulse 67 05/24/18 14:57 Resp 16 05/24/18 14:57 BP 126/76 05/24/18 14:57 Pulse Ox 94 05/24/18 14:57
--- NOTE | 2018-05-24 17:33 | Discharge Summary ---
Date of Service May 24, 2018 Admission HPI Per Admitting Provider 68 year old female who presents to the ED with chest pain. Patient reports she was sitting watching TV when she had sudden onset of severe mid sternal chest pain. She describes the pain as a squeezing sensation. She reports the pain radiated into the left side of her neck, shoulder, and down the left arm. She took one SL nitro and when the pain did not improve within 15 minutes, she came to the ED for further evaluation. She reports the pain continued on the car ride here but has since resolved since arriving to the ED without further interventions. Patient has history of CAD s/p LAD stent and coronary vasospasm. Patient underwent cardiac cath 02/2018 that showed patent stent and evidence of coronary vasospasm. She reports she was having very frequent episodes of chest pain and was started on low dose torsemide with much improvement in these symptoms. She reports not having chest pain in several weeks until today. She denies associedt shortness of breath, diaphoresis, nausea, or lightheadedness. Otherwise has been feeling well recently. She denies fever and chills. No abdominal pain, nausea, vomiting, or diarrhea. She denies urinary symptoms. In the ED, intial troponin is negative and EKG does not show any acute ST changes. Admission Exam Per Admitting Provider WD/WN, vitals as above Eyes: PERRL, conjunctivae normal, anicteric sclerae ENMT: Ears: no external ear abnormality Nose: no external nose abnormality Mouth: + poor dentition Respiratory: normal respiratory effort, lungs clear to auscultation Cardiovascular: Rate/Rhythm: regular rate and regular rhythm Vessels: normal peripheral pulses Extremities: no edema Gastrointestinal (Abdomen): normal bowel sounds, soft, nontender, no hepatosplenomegaly Musculoskeletal: no cyanosis or clubbing, extremities motor strength 5/5 Skin: no rashes, warm and dry Neurologic: PERRL, EOMI, accommodation nl, no face palsy, no dysarthria Psychiatric: A+Ox3, euthymic affect Principal Diagnosis Chest pain 2/2 coronary vasospasm Discharge Data Allergies Allergy/AdvReac Type Severity Reaction Status Date / Time Penicillins Allergy Severe TONGUE Verified 05/23/18 21:25 SWELLS oxycodone AdvReac Severe Hallucinati Verified 05/23/18 21:25 ons/Confusi on morphine AdvReac Intermediate Hypotension Verified 05/23/18 21:25 codeine AdvReac Unknown INCREASES Verified 05/23/18 21:25 PAIN Consultations 05/23/18 21:17 ED Decision to Admit Stat 05/23/18 23:27 Consult Cardiology Routine Procedures Performed Operation Date: 05/24/18 12:00 Actual Procedures p Cath, Left with Cors and Vent - Jareth Morales MD s Cineradiography w/Routine Exam - Jareth Morales MD Ordered Studies 05/24/18 12:13 CL Cath Imgs for PACS use only Urgent Hospital Course (1) Chest pain: (2) CAD (coronary artery disease): . (3) Vasospastic angina: 68-year-old female who was admitted for initial evaluation for acute coronary syndrome after chest pain. Troponins were undetectable and EKG was nonischemic. Resting 2D transthoracic echocardiogram was performed and revealed ejection fraction 55-60% with aortic valve sclerosis that was mild without significant aortic valvular stenosis. However, the exercise stress echo was positive for inducible ischemia and she was sent for cardiac catheterization. On 05/24 she underwent a left heart cath revealing mild nonobstructive coronary artery disease with a widely patent proximal LAD stent. Recommendations included continuing long-term coronary vasodilators for vasospastic angina and continued ASCVD risk factor modification. She recovered on the floor post catheterization and had no further symptoms. She had her diltiazem increased to 120 mg daily to 180 mg daily and was sent home in stable condition with close primary care follow-up recommended. At time of discharge she was afebrile, hemodynamically stable. She was tolerating p.o. at baseline and mentating and ambulating at baseline. Physical exam was unremarkable. Total Time Total Time Spent Total Time Spent (In Minutes): 60 Total Time Includes: Examination of the Patient, Discharge Planning, Medication Reconciliation and Communication With Other Providers Discharge Plan Discharge Items Patient Disposition: Home - Self-Care Reason For Visit: CHEST PAIN Discharge Diagnosis: Chest pain 2/2 coronary vasospasm Condition: Good Discharge Goals: Improve disease control Activity: Per 'Additional Instructions' section Non-emergency contact: Primary Care Provider and Landscape Painter Call non-emergency contact if: you have any medication questions, your symptoms worsen, your pain is worsening and you have a fever Follow-up/Referrals: Linette Harry, [Primary Care Provider] - Diet: Heart Healthy Addtl Provider Instructions: Please take all medications as instructed on discharge list below. Of note please increase your diltiazem dose from 120-180 mg daily as prescribed by Dr. Harry. It is recommended that you follow-up with your primary care doc within 1 week of discharge. You are scheduled for the following appointments: CARDIOLOGY Date & Time 05/27/2018 8:30 AM Provider Yissel Dyer PA-C Department Cardiology, [facility] PRIMARY CARE Date & Time 05/27/2018 12:40 PM Provider [facility] a pleasure taking care [facility] you! Please call if you have any questions or problems. You can reach a [facility] hospitalist on duty at [facility] 24 hours a day by calling [phone]. Take care of yourself. Ely Lino DO [facility] Hospitalist Prescriptions: Continued torsemide 5 mg tablet 2.5 mg PO 3XWK RF: 0 aspirin [Aspir-81] 81 mg Tablet,Delayed Release (Dr/Ec) 81 mg PO QAM RF: 0 ibuprofen 200 mg Tablet 400 mg PO HS RF: 0 nitroglycerin [Nitrostat] 0.4 mg Tablet, Sublingual 0.4 mg Sublingual DIRECTED PRN (Reason: Chest Pain) RF: 0 diltiazem HCl 120 mg Tablet Extended Release 24 Hr 180 mg PO QAM RF: 0 Praluent Pen 150 mg/mL Pen Injector 150 mg SUBCUT DIRECTED RF: 0 Stand-Alone Forms: Call Back Authorization, [facility] Discharge Orders: Discharge Order (Routine); Ordered 05/24/18 Ordered By: Ely Lino Admission Data Admit Date/Time: 05/23/18 22:31 Attending Provider: Ely Lino Admit Provider: Kurt Almanzar Primary Care Provider: Linette Harry Other Providers: Kurt Almanzar ; iRc Kay ; Austin Hung ; Chavez Paiz ; Alexander Harry ; Abel Rodriguez ; Drew Mccabe ; Yissel Dyer ; Inez Jewell ; Luis Carlos King Service: Telemetry Other Interventions: Discharge Summary Assessment (RN) Last Done: 05/24/18 17:58 DC Date/Time DO NOT enter until pt leaves facility: 05/24/18 18:45
[2018-05-27] MEDS ORDERED: TORSEMIDE 20 MG TAB PO SCH (09:00)
== END 2018-05-24 18:45 | disposition home or self-care (01) ==
LOC: ED 19:59 → 2W 19:59 → SUATTDRO 22:31 → 2W 23:17 → 2E 05-24 14:42

== ENCOUNTER 2018-06-28 20:34 | Observation (INO) ==
[2018-06-28] MEDS ORDERED: NITROGLYCERIN 2% OINTMENT 30GM TUBE EXT STA (21:23)
--- NOTE | 2018-06-28 21:32 | XRay Report ---
XR chest 1V portable CLINICAL HISTORY: 68 years-old Female presenting with chest pain. TECHNIQUE: Portable upright AP view of the chest was obtained. COMPARISON: 05/23/2018. FINDINGS: Atherosclerosis of the aortic arch. Cardiac silhouette normal in size. No focal opacity. No large eff usion or pneumothorax. Degenerative changes of the thoracic spine. Cholecystectomy clips noted. IMPRESSION: 1. No acute cardiopulmonary disease. Electronically signed by: Haja Castillo M.D. 06/28/2018 9:30 PM
[2018-06-28 21:45] LABS: Basophils # (auto) 0.02 K/uL (0-0.2); Basophils % (auto) 0.3 %; Eosinophils % (auto) 1.3 %; Hematocrit (blood only) 38.3 % (37-47); Hemoglobin 12.8 g/dL (12.0-16.0); Immature Granulocytes # (auto) 0.01 K/uL (0.00-0.02); Immature Granulocytes % (auto) 0.1 %; Lymphocytes # (auto) 1.45 K/uL (1.2-3.4); Lymphocytes % (auto) 19.1 %; Mean Corpuscular Hgb Conc 33.4 g/dL (32-36); Mean Corpuscular Volume 92.3 fL (80-100); Mean Platelet Volume 9.2 fL (7.4-10.4); Monocytes # (auto) 0.71 K/uL (0.11-0.59); Monocytes % (auto) 9.4 %; Neutrophils % (auto) 69.8 %; Platelet Count 232 K/uL (130-400); RDW Coefficient of Variation 13.6 % (11.5-14.5); RDW Standard Deviation 46.2 fL (36.4-46.3); Red Blood Count 4.15 M/uL (4.2-5.4); White Blood Count 7.59 K/uL (4.8-10.8)
[2018-06-28 22:02] LABS: Alanine Aminotransferase 47 U/L (12-78); Albumin Level 3.4 gm/dl (3.4-5.0); Aspartate Aminotransferase 44 U/L (15-37); BUN Creatinine Ratio 22.9 (10-20); Blood Urea Nitrogen 22 mg/dl (7-18); Calcium 9.1 mg/dl (8.5-10.1); Carbon Dioxide 26 mmol/L (21-32); Chloride 109 mmol/L (98-107); Creatinine Clr Calc Pharmacy 47.8 ml/min; Est GFR (African American) 69.4; Est GFR (Non-African American) 59.9; Glucose 106 mg/dl (70-99); Magnesium 2.2 mg/dl (1.8-2.4); Potassium 3.8 mmol/L (3.5-5.1); Sodium 141 mmol/L (136-145)
[2018-06-28 22:07] LABS: Albumin Globulin Ratio 0.8 (0.9-2); Alkaline Phosphatase 57 U/L (45-117); Bilirubin,Total 0.2 mg/dl (0.2-1); Globulin 4.3 gm/dl (2.5-4.0); NT Pro B Type Natriuretic Pept 170 pg/ml (0-900); Total Protein 7.7 gm/dl (6.4-8.2); Troponin I < 0.015 ng/ml (0-0.045)
[2018-06-29] MEDS ORDERED: NITROGLYCERIN SL 0.4 MG/TAB TAB SL PRN (01:41)
[2018-06-29] MEDS ORDERED: ONDANSETRON INJ 2 MG/ML 2 ML VIAL IV PRN (01:41)
[2018-06-29] MEDS: ACETAMINOPHEN 325 MG TAB PO PRN ×2 (02:09→08:14)
--- NOTE | 2018-06-29 02:39 | History and Physical Report ---
DATE OF ADMISSION: 06/28/2018 CHIEF COMPLAINT: Chest pain. HISTORY OF PRESENT ILLNESS: This is a 68-year-old female with past medical history significant for CAD, status post LAD stent, history of tricuspid regurgitation, hyperlipidemia, celiac disease, chronic kidney stage III, presents with chest pain. The patient was watching TV and she had sudden severe chest pain in the middle of the chest radiating to her left arm, very severe in nature. No associating factors. No shortness of breath. No dizziness, no diaphoresis no nausea. She took 3 aspirin and 3 nitros but didn't relieved the pain.. EMS was called. On the way, she was given a nitrospray that brought down the pain significantly and in the ER she was placed on nitro paste. Currently, pain is almost gone. Hemodynamics stable. Denies any cough, no fever, no chills, no headache, no blurred visions, no runny nose, no sore throat or difficulty swallowing. Appetite is okay. No abdominal pain. Normal bowel and bladder movements. No hematuria. No hematochezia or melena. No swelling of the legs. Currently resting comfortably and hemodynamically stable. ALLERGIES: MORPHINE, PENCILLINS, PERCOCET. PAST MEDICAL HISTORY: As mentioned above. PAST SURGICAL HISTORY: Ablation of the heart for AVNRT, catheterization with stent placement, laparoscopic cholecystectomy, tonsillectomy, adenoidectomy. MEDICATIONS: The patient is on diltiazem 180 mg p.o. daily, Demadex 2.5 mg p.o. on Sunday, Sunday and Sunday, Pralucent every 14 days, nitroglycerin 0.4 mg sublingual p.r.n., ibuprofen 400 mg p.o. at bedtime, aspirin 81 mg p.o. daily. FAMILY HISTORY: Significant for mother had CAD onset of age of 50's. Mother has Parkinson's disease. Maternal grandfather has dementia, paternal grandfather has dementia. SOCIAL HISTORY: Lives with , smokes 1 pack a day for the last 23 years. Alcohol, a glass of wine with dinner. No drug use. REVIEW OF SYMPTOMS: As per HPI. Rest of review of systems negative. PHYSICAL EXAMINATION: GENERAL: The patient is of moderate built, not in acute distress. VITAL SIGNS: Temperature 36.6, pulse 70, respiratory rate 22, blood pressure 160/86, oxygen 96% room air. HEENT: No pallor, no icterus. Pupils equal, round, and react to light. NECK: No JVD, no neck masses, no carotid bruits. CARDIOVASCULAR: S1, S2 heard, regular rate and rhythm, no murmur, no gallop. RESPIRATORY SYSTEM: Clear to auscultation bilaterally. No wheezing, no crackles. ABDOMEN: Soft, bowel sounds present. Nontender. No distention. CENTRAL NERVOUS SYSTEM: Cranial nerves II-XII grossly intact. Nonfocal. EXTREMITIES: No edema, no erythema. LABS: WBC 7.5, hemoglobin 12.8, hematocrit 38.3, platelets 232. Sodium 141, potassium 3.8, chloride 109, bicarbonate 26, BUN 22, creatinine 0.9, serum glucose 106, calcium 9.1, magnesium 2.2, total bilirubin 0.2, AST 44, ALT 40, alkaline phosphatase 57. Troponin I less than 0.015. BNP 170. Lipase 108. Chest x-ray: No acute cardiopulmonary disease seen. EKG: Normal sinus rhythm with rate of 70. No acute ST or T changes seen. No significant changes found. ASSESSMENT AND PLAN: A 68-year-old female who presents with chest pain. 1. Chest pain. History of coronary artery disease status post stent to LAD, history of vasospastic angina. She had same kind of symptoms and admitted to hospital on 05/23/2018. At that time, cardiac catheterization was done, which showed widely patent proximal LAD stent and mild nonobstructive coronary artery disease. Her symptoms were thought to be from vasospastic angina. Cardizem dose was increased to 180 mg daily on discharge. Currently, presents with severe chest pain. Had 3 nitros and 3 aspirin at home with no relief of pain , but nitrospray in the ambulance and nitro paste in the Emergency Room, relieved the pain, currently pain free. Will observe in tele. Serial CE and EKG in morning. Continue home medications of diltiazem, aspirin, Demadex at times a week;Cardiology consult. 2.hyperlipidemia, not on medications. We will follow fasting lipid profile, 3.chronic kidney disease stage III, baseline creatinine of 1-1.1, ____ creatinine now 0.9. We will follow the labs. 4. Deep vein thrombosis prophylaxis, sequential compression devices for now. DISPOSITION: Observation tele floor. Expect discharge home and follow with family doctor. Level 1 full code. MTDD
[2018-06-29] MEDS ORDERED: NITROGLYCERIN 2% OINTMENT 30GM TUBE EXT SCH (04:00)
[2018-06-29 05:33] LABS: Basophils # (auto) 0.02 K/uL (0-0.2); Basophils % (auto) 0.3 %; Eosinophils # (auto) 0.11 K/uL (0-0.5); Eosinophils % (auto) 1.7 %; Hematocrit (blood only) 37.8 % (37-47); Hemoglobin 12.7 g/dL (12.0-16.0); Immature Granulocytes # (auto) 0.01 K/uL (0.00-0.02); Immature Granulocytes % (auto) 0.2 %; Lymphocytes % (auto) 24.6 %; Mean Corpuscular Hgb Conc 33.6 g/dL (32-36); Mean Corpuscular Volume 92.4 fL (80-100); Mean Platelet Volume 9.5 fL (7.4-10.4); Monocytes # (auto) 0.76 K/uL (0.11-0.59); Monocytes % (auto) 11.7 %; Neutrophils # (auto) 4.01 K/uL (1.4-6.5); Neutrophils % (auto) 61.5 %; Platelet Count 236 K/uL (130-400); RDW Coefficient of Variation 13.7 % (11.5-14.5); RDW Standard Deviation 46.3 fL (36.4-46.3); Red Blood Count 4.09 M/uL (4.2-5.4); White Blood Count 6.51 K/uL (4.8-10.8)
[2018-06-29 05:53] LABS: BUN Creatinine Ratio 23.6 (10-20); Blood Urea Nitrogen 22 mg/dl (7-18); Calcium 8.9 mg/dl (8.5-10.1); Carbon Dioxide 26 mmol/L (21-32); Chloride 111 mmol/L (98-107); Est GFR (African American) 73.1; Est GFR (Non-African American) 63.1; Glucose 93 mg/dl (70-99); Magnesium 2.1 mg/dl (1.8-2.4); Potassium 3.7 mmol/L (3.5-5.1); Sodium 142 mmol/L (136-145)
[2018-06-29 05:57] LABS: Troponin I < 0.015 ng/ml (0-0.045)
[2018-06-29 07:58] LABS: Chol HDL Ratio 2; Cholesterol 135 mg/dl (0-200); HDL Cholesterol 57 mg/dl; LDL Cholesterol Calculated 65 mg/dl; Triglycerides 66 mg/dl (0-150); VLDL Cholesterol 13 mg/dl
[2018-06-29] MEDS ORDERED: ASPIRIN 81 MG ECTAB PO SCH (09:00)
[2018-06-29] MEDS ORDERED: dilTIAZem HCL 180 MG CAPCR PO SCH (09:00)
--- NOTE | 2018-06-29 09:04 | Cardiology Consultation ---
Date of Consultation June 29, 2018 Assessment & Plan (1) Chest pain: ECG and cardiac enzymes unremarkable. Symptoms possibly related to an episode of vasospasm. (2) Vasospastic angina: Patient currently pain-free. No ischemic ECG changes. Discontinue Nitropaste. Will initiate isosorbide dinitrate 10 mg twice daily. Continue Cardizem CD 180 mg daily. Discussed possible addition of prn anxiolytic, however, patient declines at this time. Possible discharge later today. Addendum: Patient intolerant to oral isosorbide dinitrate which induced significant headache. Patient treated with Tylenol and Toradol with resolution of headache. Recommend low-dose transdermal nitroglycerin patch to begin tomorrow. Consider addition of Ranexa in the future. Will also transition from sublingual nitroglycerin tablets to sublingual nitro spray. Currently patient is pain-free. She may be discharged home. I will see her for close cardiology follow-up in 2-3 weeks. (3) CAD (coronary artery disease): Stent patent without obstructive CAD per cardiac catheterization 05/24/18. Continue aspirin and PCSK9 inhibitor secondary to statin intolerance. (4) Dyslipidemia: (5) SVT (supraventricular tachycardia): History of Present Illness Reason for Consultation: Chest pain, vasospastic angina Requesting Physician: Dr. Llamas Attending Physician: Kelly Cabrera MD History of Present Illness 68-year-old female who is well known to the [facility] presents emergency department last evening with chest discomfort. She was watching television when she developed substernal tightness and heaviness. Mild associated shortness of breath. She took 3 sublingual nitroglycerin without relief. EMS was summoned and she was then treated with nitro spray x2. Nitropaste applied in the ER and she has been pain-free overnight. Cardiac enzymes are negative. ECG without ischemic changes. Patient denies recent exertional chest pain or unusual of breath. Feeling fatigued this morning. Denies any noncompliance. No orthopnea, PND, or claudication. Reports occasional pedal edema. Overall functional capacity is stable. Allergies Allergy/AdvReac Type Severity Reaction Status Date / Time Penicillins Allergy Severe TONGUE Verified 06/28/18 23:46 SWELLS oxycodone AdvReac Severe Hallucinati Verified 06/28/18 23:46 ons/Confusi on morphine AdvReac Intermediate Hypotension Verified 06/28/18 23:46 codeine AdvReac Unknown INCREASES Verified 06/28/18 23:46 PAIN Home Medications Home Medications Medication Instructions Recorded Confirmed Type Praluent Pen 150 mg SUBCUT . EVERY 2 WEEKS 05/23/18 06/28/18 History aspirin [Aspir-81] 81 mg PO QAM 05/23/18 06/28/18 History diltiazem HCl 180 mg PO QAM 05/23/18 06/28/18 History ibuprofen 400 mg PO HS 05/23/18 06/28/18 History nitroglycerin [Nitrostat] 0.4 mg SUBLINGUAL DIRECTED PRN 05/23/18 06/28/18 History torsemide 2.5 mg PO 3XWK 05/23/18 06/28/18 History Patient History Medical History SVT (supraventricular tachycardia) (Chronic) CKD (chronic kidney disease), stage III (Chronic) Celiac disease (Chronic) CAD (coronary artery disease) (Chronic) s/p LAD stent cath 02/2018 - demonstrated patent LAD stent, evidence of coronary vasospasm Dyslipidemia (Chronic) Acute coronary syndrome (Inactive) Celiac disease (Inactive) Coronary artery disease (Inactive) Coronary vasospasm (Inactive) Hyperlipidemia (Inactive) Raynaud's disease (Inactive) Surgical History H/O prior ablation treatment (Chronic) History of tonsillectomy and adenoidectomy (Chronic) History of cholecystectomy (Chronic) H/O heart artery stent (Inactive) History of cholecystectomy (Inactive) History of tonsillectomy (Inactive) Family History Mother Coronary heart disease Social History Preferred Language: Sudanese Communication Ability: Effective Division Superintendent Required: No Beliefs That Will Affect Care: None Current Living Situation: Significant Other Other Information That Helps Us Care for You: No Feels Safe at Home: Yes Safety Concerns: Feels Safe At This Time Smoking Status: Former smoker Hx Alcohol Use: Yes Hx Substance Use: No Review of Systems Pertinent positives noted per HPI, comprehensive 10 system review otherwise negative. Physical Exam Vital Signs (Past 24 Hours): Last Vital Signs Temp 36.6 C 06/29/18 07:42 Pulse 66 06/29/18 07:42 Resp 18 06/29/18 07:42 BP 104/64 06/29/18 07:42 Pulse Ox 94 06/29/18 07:42 Physical Exam: General: NAD, AAO x3, well nourished. HEENT: Normocephalic. Atraumatic. Conjunctiva pink, no scleral icterus. Neck: No carotid bruits, the carotid upstrokes are brisk. No JVD. No HJR Heart: Regular normal S-1 and S-2 no S-3 or S-4 gallop. No murmurs or rub appreciated. PMI is not displaced. No RV heave. Lungs: Clear bilateral without rales , rhonchi, or wheeze. Abdomen: Normal bowel sounds. Soft. Nontender. No masses or organomegaly. No abdominal bruits. Extremities: No clubbing, cyanosis, or edema. Pulses: radial=2/4, Dorsalis pedis =2/4, posterior tibial=2/4. Neuro: Cranial nerves grossly intact. No focal motor deficit. (1) CAD (coronary artery disease) Associated angina: with angina and documented spasm Coronary Disease- Associated Artery/Lesion type: [place] artery [place] vs. transplanted heart: [place] heart Qualified Code(s): I25.111 - Atherosclerotic heart disease of [place] coronary artery with angina pectoris with documented spasm (2) Chest pain Chest pain type: chest pain due to myocardial ischemia Ischemic chest pain type: angina pectoris with documented coronary spasm Qualified Code(s): I20.1 - Angina pectoris with documented spasm
[2018-06-29] MEDS ORDERED: ISOSORBIDE DINITRATE 10 MG TAB PO SCH (09:30)
[2018-06-29] MEDS ORDERED: MoRPHine SULFATE 2 MG/ML CARP IV STA (10:34)
[2018-06-29] MEDS ORDERED: KETOROLAC TROMETHAMINE 15 MG/ML VIAL IV ONE (10:48)
[2018-06-29] MEDS ORDERED: NITROGLYCERIN SL SPR 4.9 GM BTL SL PRN (11:53)
--- NOTE | 2018-06-29 15:54 | Discharge Summary ---
Date of Service June 29, 2018 Principal Diagnosis Chest pain, noncardiac Discharge Exam GENERAL: No sign of distress, HEENT: Sclera nonicteric, pink-purple bilateral equal reactive to light extraocular muscle intact Normal oral mucosa, neck: No JVD, no thyromegaly, trachea midline Lungs: Clear to auscultate, no wheeze or rales Cardiovascular: Regular S1 and S2, no murmur or gallop, no JVD, no lower extremity edema Abdomen: Soft, nontender, bowel sounds active, no hepatosplenomegaly Extremities: No rash or deformity, normal joint, Neuro: No focal neurological deficit, no dysarthria, no facial droop Psych: Alert awake oriented x3: Euthymic Skin: No rash LYMPH NODES: No cervical lymphadenopathy Discharge Data Allergies Allergy/AdvReac Type Severity Reaction Status Date / Time Penicillins Allergy Severe TONGUE Verified 06/28/18 23:46 SWELLS oxycodone AdvReac Severe Hallucinati Verified 06/28/18 23:46 ons/Confusi on morphine AdvReac Intermediate Hypotension Verified 06/28/18 23:46 codeine AdvReac Unknown INCREASES Verified 06/28/18 23:46 PAIN Consultations 06/28/18 23:38 ED Decision to Admit Stat 06/29/18 08:00 Consult Cardiology Routine Hospital Course (1) Chest pain: ECG and cardiac enzymes unremarkable. Symptoms possibly related to an episode of vasospasm. Has been symptom free since admission, ambulating hallway, without any chest heaviness shortness of breath Appreciated from per cardiology, Was ordered p.o. Imdur, patient developed severe headache, imdur discontinued Be discharged on p.o. Cardizem CD 180 mg daily, Patient tolerated Nitropaste, will be discharged on nitro patch Sublingual nitro spray Stable to be discharged home today per cardiology Outpatient follow-up with cardiology (2) Vasospastic angina: Patient currently pain-free. No ischemic ECG changes. Discontinue Nitropaste. isosorbide dinitrate 10 mg twice daily was ordered D/jacqui as it caused severe headache will be discharged on low dose nitro patch . Continue Cardizem CD 180 mg daily. (3) CAD (coronary artery disease): Stent patent without obstructive CAD per cardiac catheterization 05/24/18. Continue aspirin and PCSK9 inhibitor secondary to statin intolerance. Disposition: Stable to be discharged home today (4) Dyslipidemia: (5) SVT (supraventricular tachycardia): Total Time Total Time Spent Total Time Spent (In Minutes): approx 35 mins Total Time Includes: Examination of the Patient, Discharge Planning, Medication Reconciliation and Communication With Other Providers Discharge Plan Discharge Items Patient Disposition: Home - Self-Care Reason For Visit: CHEST PAIN Discharge Diagnosis: CHEST PAIN Discharge Goals: Decrease discomfort and Diagnostic testing Activity: Resume your previous activity Non-emergency contact: Primary Care Provider Call non-emergency contact if: you have any medication questions Follow-up/Referrals: Sophie Harry DO [Primary Care Provider] - Diet: Heart Healthy Addtl Provider Instructions: HOSPITAL FOLLOW UP WITH DR SOPHIE NICOLAS IN A WEEK , OFFICE WILL CALL WITH APPOINTMENT CARDIOLOGY FOLLOW UP IN 3-4 WEEKS OFFICE WILL CALL WITH APPOINTMENT Prescriptions: New nitroglycerin 0.1 mg/hr Patch 24 Hour 0.1 patch transdermal QAM 30 Days Qty: 30 RF: 3 nitroglycerin 400 mcg/spray aerosol,spray 0.4 mg sublingual Q5M Qty: 4.1 RF: 2 Continued torsemide 5 mg tablet 2.5 mg PO 3XWK RF: 0 aspirin [Aspir-81] 81 mg Tablet,Delayed Release (Dr/Ec) 81 mg PO QAM RF: 0 ibuprofen 200 mg Tablet 400 mg PO HS RF: 0 diltiazem HCl 120 mg Tablet Extended Release 24 Hr 180 mg PO QAM RF: 0 Praluent Pen 150 mg/mL Pen Injector 150 mg SUBCUT . EVERY 2 WEEKS RF: 0 Discontinued nitroglycerin [Nitrostat] 0.4 mg Tablet, Sublingual 0.4 mg Sublingual DIRECTED PRN (Reason: Chest Pain) RF: 0 Stand-Alone Forms: Call Back Authorization, [facility] Discharge Orders: Discharge Order (Routine); Ordered 06/29/18 Ordered By: Kelly Cabrera Admission Data Admit Date/Time: 06/29/18 00:09 Attending Provider: Kelly Cabrera Admit Provider: Lane Llamas Primary Care Provider: Sophie Harry Other Providers: Lane Llamas ; Ric Kay ; Austin Hung ; Chavez Paiz ; Alexander Harry ; Abel Rodriguez ; Drew Mccabe ; Yissel Dyer ; Inez Jewell ; Keaton Schulte Service: Telemetry Other Interventions: Discharge Summary Assessment (RN) Last Done: 06/29/18 15:53 DC Date/Time DO NOT enter until pt leaves facility: 06/29/18 16:19
[2018-06-30] MEDS ORDERED: NITROGLYCERIN 0.1 MG/HR PATCH TD SCH (09:00)
[2018-07-01] MEDS ORDERED: TORSEMIDE 20 MG TAB PO SCH (09:00)
--- NOTE | 2018-07-01 21:33 | Emergency Department Note ---
Entered by Octavio Roach acting as a scribe for Julia Ramirez DO History of Present Illness General Chief complaint: Chest Pain Stated complaint: CHEST PAIN Time Seen by Provider: 06/28/18 20:52 Source: patient History of Present Illness Onset (ago): day(s) (today) Location: chest Radiation: extremity (arms) Pain Consistency: + constant Associated symptoms: + other (Negative for nausea, SOB, cough, abdominal pain, back pain, leg swelling, and numbness.) The patient is a 68 year old female who presents to the emergency department with complaints of constant chest pain beginning today. The patient states that she has been having chest pain that radiates down her arm. She notes that her chest pain started when she was watching TV. She reports that she has had similar episodes in the past. The patient states that she gets heart spasms, but she notes that her current symptoms are worse. She reports that she took 3 nitroglycerin and 3 baby aspirin with no relief of her symptoms. States EMS ga ve her additional nitro which helped but didn't alleviate the pain. The patient states that she was in the emergency department a month ago for similar symptoms. She notes that she had a heart catheterization done at that time. She denies any nausea, SOB, cough, abdominal pain, back pain, leg swelling, and numbness. States after her last admission and cath, her medications were changed to try and prevent this. No recent illness, no change in activity. Home Medications Home Medications Medication Instructions Recorded Confirmed Type Praluent Pen 150 mg SUBCUT . EVERY 2 WEEKS 05/23/18 06/28/18 History aspirin [Aspir-81] 81 mg PO QAM 05/23/18 06/28/18 History diltiazem HCl 180 mg PO QAM 05/23/18 06/28/18 History ibuprofen 400 mg PO HS 05/23/18 06/28/18 History torsemide 2.5 mg PO 3XWK 05/23/18 06/28/18 History nitroglycerin 0.1 patch TRANSDERMAL QAM 30 Days 06/29/18 Rx #30 ea nitroglycerin 0.4 mg SUBLINGUAL Q5M #4.1 gm 06/29/18 Rx Allergies Allergy/AdvReac Type Severity Reaction Status Date / Time Penicillins Allergy Severe TONGUE Verified 06/28/18 23:46 SWELLS oxycodone AdvReac Severe Hallucinati Verified 06/28/18 23:46 ons/Confusi on morphine AdvReac Intermediate Hypotension Verified 06/28/18 23:46 codeine AdvReac Unknown INCREASES Verified 06/28/18 23:46 PAIN Past Med/Surg History Medical History SVT (supraventricular tachycardia) (Chronic) CKD (chronic kidney disease), stage III (Chronic) Celiac disease (Chronic) CAD (coronary artery disease) (Chronic) s/p LAD stent cath 02/2018 - demonstrated patent LAD stent, evidence of coronary vasospasm Dyslipidemia (Chronic) Acute coronary syndrome (Inactive) Celiac disease (Inactive) Coronary artery disease (Inactive) Coronary vasospasm (Inactive) Hyperlipidemia (Inactive) Raynaud's disease (Inactive) Surgical History H/O prior ablation treatment (Chronic) History of tonsillectomy and adenoidectomy (Chronic) History of cholecystectomy (Chronic) H/O heart artery stent (Inactive) History of cholecystectomy (Inactive) History of tonsillectomy (Inactive) Family History Mother Coronary heart disease Social History Preferred Language: Gu[place]ian Beliefs That Will Affect Care: None Current Living Situation: Significant Other Other Information That Helps Us Care for You: No Feels Safe at Home: Yes Safety Concerns: Feels Safe At This Time Smoking Status: Former smoker Hx Alcohol Use: Yes Hx Substance Use: No Review of Systems See HPI for pertinent positives & negatives. and A total of 10 systems reviewed and were otherwise negative Physical Exam Vital Signs Vital Signs - 24 hr 06/28/18 20:44 06/28/18 20:51 06/28/18 22:43 Temperature 97.9 F Temperature Source Oral Sepsis Recent Fever Within 48 Hours No Sepsis Action Taken by Nursing No Action Required Pulse Rate 70 Pulse Rate [Finger] 70 Respiratory Rate 18 22 Blood Pressure 115/63 Blood Pressure [Left Arm] 116/86 Blood Pressure Mean 80 Blood Pressure Mean [Left Arm] 96 Blood Pressure Position Lying Pulse Oximetry 93 93 96 Oxygen Delivery Method Room Air Room Air GENERAL: alert, well appearing, well nourished, no distress, non-toxic EYE EXAM: normal conjunctiva, PERRL and EOM's grossly intact OROPHARYNX: no exudate, no erythema, lips, buccal mucosa, and tongue normal and mucous membranes are moist NECK: supple, no nuchal rigidity, no adenopathy, non-tender LUNGS: Clear to auscultation. Normal chest wall mechanics, no w/r/r HEART: no murmurs, S1 normal and S2 normal ABDOMEN: abdomen soft, non-tender, normo-active bowel sounds, no masses, no re bound or guarding. BACK: Back is symmetrical on inspection and there is no deformity, no midline tenderness, no CVA tenderness. SKIN: no rashes and no bruising UPPER EXTREMITIES: upper extremities are grossly normal. FROM, nml pulses b/l. LOWER EXTREMITIES: No pitting edema. FROM, nml pulses b/l. NEURO EXAM: Normal sensorium, cranial nerves II-XII grossly intact, normal speech, no gross weakness of arms, no gross weakness of legs. Course 2111: The patient was evaluated in room C3, and a complete history and physical examination were performed. 0: I reviewed the patient's recent cardiac catheterization on 05/24/2018 after a positive stress test and anginal symptoms. She had mild non-obstructing CAD. She had a widely patent proximal LAD stent, 20-30% LAD, and proximal RSA. 8: I reevaluated and updated the patient. She feels fine. 2300: I discussed the patient's case with Alicia White. He recommends admitting the patient. 2314: Upon reevaluation, the patient is stable. I discussed the results and treatment plan with the patient. She verbalizes understanding and agreement. I discussed the patient's case with Alicia العلي. The patient will be evaluated for further management and care. Consultations Consultation #1: I discussed the patient's case with Alicia White. He recommends admitting the patient. Time: 23:00 Consultation #2: I reviewed the patient's case with Alicia العلي. He will evaluate the patient for further management. Time: 23:14 Administered Medications Discontinued Medications Acetaminophen (Tylenol) 650 mg PO Q4H PRN PRN Reason: Pain or Fever Stop: 07/29/18 01:40 Last Admin: 06/29/18 08:14 Dose: 650 mg Documented by: [id number] Admin: 06/29/18 02:09 Dose: 650 mg Documented by: [id number] Aspirin (E[facility]rin Ectab) [facility] [place] Stop: 07/29/18 08:59 Last Admin: 06/29/18 08:11 Dose: 81 mg Documented by: [id number] Diltiazem HCl (Cardizem Cd) [facility] [place] Stop: 07/29/18 08:59 Last Admin: 06/29/18 08:11 Dose: 180 mg Documented by: [id number] Isosorbide Dinitrate (Isordil) 10 mg PO BID@0700,1200 [facility] Stop: 07/29/18 09:29 Last Admin: 06/29/18 09:49 Dose: 10 mg Documented by: [id number] Ketorolac Tromethamine (Toradol) 30 mg IV NOW ONE Stop: 06/29/18 10:49 Last Admin: 06/29/18 11:05 Dose: 30 mg Documented by: [id number] Morphine Sulfate (Morphine Sulfate) 1 mg IV NOW STA Stop: 06/29/18 10:35 Last Admin: 06/29/18 10:50 Dose: Not Given Documented by: [id number] Nitroglycerin (Nitro-Bid 2%) 1 inch EXT NOW STA Stop: 06/28/18 21:24 Last Admin: 06/28/18 22:17 Dose: 1 inch Documented by: [id number] Nitroglycerin (Nitro-Bid 2%) 1 inch EXT Q6H [facility] Stop: 07/29/18 03:59 Last Admin: 06/29/18 04:16 Dose: 1 inch Documented by: [id number] Medical Decision Making Differential Diagnosis Differential diagnosis: Etiologies such as shingles, musculoskeletal pain, pericarditis, myocarditis, cardiac ischemia, pericardial tamponade, pneumonia, pneumothorax, pleural effusion, hemothorax, pleurisy, aortic pathology, pulmonary embolism, intra- abdominal process, as well as others were considered. Medical Records Attestation: I reviewed the patient's medical records. Home Medications Current Medication List: was personally reviewed by me Laboratory Data Attestation: I reviewed the patient's lab results. Result diagrams: 06/29/18 04:57 06/29/18 04:57 Lab Results 06/28/18 06/28/18 06/29/18 Range/Units 21:34 21:34 01:47 WBC 7.59 (4.8-10.8) K/uL RBC 4.15 L (4.2-5.4) M/uL Hgb 12.8 (12.0-16.0) g/dL Hct 38.3 (37-47) % MCV 92.3 (80-100) fL MCH 30.8 (25-34) pg MCHC 33.4 (32-36) g/dL RDW Std Deviation 46.2 (36.4-46.3) fL RDW Coeff of Lionel 13.6 (11.5-14.5) % Plt Count 232 (130-400) K/uL MPV 9.2 (7.4-10.4) fL Immature Gran % (Auto) 0.1 % Neut % (Auto) 69.8 % Lymph % (Auto) 19.1 % [place] % (Auto) 9.4 % Eos % (Auto) 1.3 % Baso % (Auto) 0.3 % Immature Gran # (Auto) 0.01 (0.00-0.02) K/uL Neut # (Auto) 5.30 (1.4-6.5) K/uL Lymph # (Auto) 1.45 (1.2-3.4) K/uL [place] # (Auto) 0.71 H (0.11-0.59) K/uL Eos # (Auto) 0.10 (0-0.5) K/uL Baso # (Auto) 0.02 (0-0.2) K/uL Sodium 141 (136-145) mmol/L Potassium 3.8 (3.5-5.1) mmol/L Chloride 109 H (98-107) mmol/L Carbon Dioxide 26 (21-32) mmol/L Anion Gap 6.0 (3-11) BUN 22 H (7-18) mg/dl Creatinine 0.96 (0.6-1.2) mg/dl Est Cr Clr Drug Dosing 47.8 ml/min Est GFR ( Amer) 69.4 Est GFR (Non-Af Amer) 59.9 BUN/Creatinine Ratio 22.9 H (10-20) Glucose 106 H (70-99) mg/dl Calcium 9.1 (8.5-10.1) mg/dl Magnesium 2.2 (1.8-2.4) mg/dl Total Bilirubin 0.2 (0.2-1) mg/dl AST 44 H (15-37) U/L ALT 47 (12-78) U/L Alkaline Phosphatase 57 (45-117) U/L Troponin I < 0.015 < 0.015 (0-0.045) ng/ml NT-Pro-B Natriuret Pep 170 (0-900) pg/ml Total Protein 7.7 (6.4-8.2) gm/dl Albumin 3.4 (3.4-5.0) gm/dl Globulin 4.3 H (2.5-4.0) gm/dl Albumin/Globulin Ratio 0.8 L (0.9-2) Triglycerides (0-150) mg/dl Cholesterol (0-200) mg/dl LDL Cholesterol, Calc mg/dl VLDL Cholesterol, Calc mg/dl HDL Cholesterol mg/dl Cholesterol/HDL Ratio Lipase 108 (73-393) U/L 06/29/18 06/29/18 06/29/18 Range/Units 04:57 04:57 07:13 WBC 6.51 (4.8-10.8) K/uL RBC 4.09 L (4.2-5.4) M/uL Hgb 12.7 (12.0-16.0) g/dL Hct 37.8 (37-47) % MCV 92.4 (80-100) fL MCH 31.1 (25-34) pg MCHC 33.6 (32-36) g/dL RDW Std Deviation 46.3 (36.4-46.3) fL RDW Coeff of Lionel 13.7 (11.5-14.5) % Plt Count 236 (130-400) K/uL MPV 9.5 (7.4-10.4) fL Immature Gran % (Auto) 0.2 % Neut % (Auto) 61.5 % Lymph % (Auto) 24.6 % [place] % (Auto) 11.7 % Eos % (Auto) 1.7 % Baso % (Auto) 0.3 % Immature Gran # (Auto) 0.01 (0.00-0.02) K/uL Neut # (Auto) 4.01 (1.4-6.5) K/uL Lymph # (Auto) 1.60 (1.2-3.4) K/uL [place] # (Auto) 0.76 H (0.11-0.59) K/uL Eos # (Auto) 0.11 (0-0.5) K/uL Baso # (Auto) 0.02 (0-0.2) K/uL Sodium 142 (136-145) mmol/L Potassium 3.7 (3.5-5.1) mmol/L Chloride 111 H (98-107) mmol/L Carbon Dioxide 26 (21-32) mmol/L Anion Gap 5.0 (3-11) BUN 22 H (7-18) mg/dl Creatinine 0.92 (0.6-1.2) mg/dl Est Cr Clr Drug Dosing 45.0 ml/min Est GFR ( Amer) 73.1 Est GFR (Non-Af Amer) 63.1 BUN/Creatinine Ratio 23.6 H (10-20) Glucose 93 (70-99) mg/dl Calcium 8.9 (8.5-10.1) mg/dl Magnesium 2.1 (1.8-2.4) mg/dl Total Bilirubin (0.2-1) mg/dl AST (15-37) U/L ALT (12-78) U/L Alkaline Phosphatase (45-117) U/L Troponin I < 0.015 (0-0.045) ng/ml NT-Pro-B Natriuret Pep (0-900) pg/ml Total Protein (6.4-8.2) gm/dl Albumin (3.4-5.0) gm/dl Globulin (2.5-4.0) gm/dl Albumin/Globulin Ratio (0.9-2) Triglycerides 66 (0-150) mg/dl Cholesterol 135 (0-200) mg/dl LDL Cholesterol, Calc 65 mg/dl VLDL Cholesterol, Calc 13 mg/dl HDL Cholesterol 57 mg/dl Cholesterol/HDL Ratio 2 Lipase (73-393) U/L 06/29/18 Range/Units 13:48 WBC (4.8-10.8) K/uL RBC (4.2-5.4) M/uL Hgb (12.0-16.0) g/dL Hct (37-47) % MCV (80-100) fL MCH (25-34) pg MCHC (32-36) g/dL RDW Std Deviation (36.4-46.3) fL RDW Coeff of Lionel (11.5-14.5) % Plt Count (130-400) K/uL MPV (7.4-10.4) fL Immature Gran % (Auto) % Neut % (Auto) % Lymph % (Auto) % [place] % (Auto) % Eos % (Auto) % Baso % (Auto) % Immature Gran # (Auto) (0.00-0.02) K/uL Neut # (Auto) (1.4-6.5) K/uL Lymph # (Auto) (1.2-3.4) K/uL [place] # (Auto) (0.11-0.59) K/uL Eos # (Auto) (0-0.5) K/uL Baso # (Auto) (0-0.2) K/uL Sodium (136-145) mmol/L Potassium (3.5-5.1) mmol/L Chloride (98-107) mmol/L Carbon Dioxide (21-32) mmol/L Anion Gap (3-11) BUN (7-18) mg/dl Creatinine (0.6-1.2) mg/dl Est Cr Clr Drug Dosing ml/min Est GFR ( Amer) Est GFR (Non-Af Amer) BUN/Creatinine Ratio (10-20) Glucose (70-99) mg/dl Calcium (8.5-10.1) mg/dl Magnesium (1.8-2.4) mg/dl Total Bilirubin (0.2-1) mg/dl AST (15-37) U/L ALT (12-78) U/L Alkaline Phosphatase (45-117) U/L Troponin I < 0.015 (0-0.045) ng/ml NT-Pro-B Natriuret Pep (0-900) pg/ml Total Protein (6.4-8.2) gm/dl Albumin (3.4-5.0) gm/dl Globulin (2.5-4.0) gm/dl Albumin/Globulin Ratio (0.9-2) Triglycerides (0-150) mg/dl Cholesterol (0-200) mg/dl LDL Cholesterol, Calc mg/dl VLDL Cholesterol, Calc mg/dl HDL Cholesterol mg/dl Cholesterol/HDL Ratio Lipase (73-393) U/L Imaging Data Radiologist's Impression: Radiology results as stated below per my review and the radiologist's interpretation: XR chest 1V portable FINDINGS: Atherosclerosis of the aortic arch. Cardiac silhouette normal in size. No focal opacity. No large effusion or pneumothorax. Degenerative changes of the thoracic spine. Cholecystectomy clips noted. IMPRESSION: 1. No acute cardiopulmonary disease. Electronically signed by: Haja Castillo M.D. 06/28/2018 9:30 PM ECG Data Attestation: I personally reviewed and interpreted this ECG as follows: Indication: chest pain Rate (beats per minute): 70 Rhythm: sinus rhythm Findings: no PAC, no PVC, no ST depression and no ST elevation Additional Comments: Normal axis, normal intervals. Blood Pressure Blood Pressure Findings: Normal blood pressure Blood Pressure Disposition: did not require urgent referral MDM Narrative Pt here well appearing and additional nitro paste helped resolve her pain. I did review recent cath report as well as prior cardiology consultation. No ectopy/dysrhythmia noted on tele. Pt with stable VS here. I do not suspect pe, dissection, tamponade, effusion. Pt states she has been compliant with her meds. Given complicated hx and recent admission, case discussed with Dr. Alegria. He recommended admission for continued monitoring and medication changes. Case discussed with hospitalist. Impression & Plan Chest pain Discharge Plan Visit Data *Final* Discharge Date/Time: 06/29/18 00:46 Chief Complaint: Chest Pain Stated Complaint: CHEST PAIN ED Provider: Julia Ramirez Discharge Problem: Chest pain Patient Disposition: Admitted As Inpatient Condition: Fair Discharge Instructions Interventions: ED Discharge Assessment Last Done: 06/29/18 00:46 The scribe's documentation has been prepared under my direction and personally reviewed by me in its entirety. I confirm that the note above accurately reflects all work, treatment, procedures, and medical decision making performed by me.
== END 2018-06-29 16:19 | disposition home or self-care (01) ==
LOC: 2S 20:34 → ED 20:34 → SUATTDRO 06-29 00:09 → 2S 06-29 00:46

== ENCOUNTER 2022-05-17 06:01 | Observation (INO) ==
[2022-05-17] MEDS ORDERED: NITROGLYCERIN SL 0.4 MG/TAB TAB SL STA ×2 (06:50→07:28)
[2022-05-17] MEDS ORDERED: ASPIRIN CHEW 324 MG PO STA (06:50)
--- NOTE | 2022-05-17 06:53 | Emergency Department Note ---
Impression & Plan Chest pain, Elevated blood sugar ED Provider Note NAME: VICTOR M TILLMAN AGE: 72 SEX: F : 1950 ARRIVES VIA: Walk-In INFORMANT: Patient ED PROVIDER(S): Hunter Graves DO CHIEF COMPLAINT: chest pain HPI: Patient is a 72-year-old female with past medical history of CAD, coronary artery spasms, SVT, CKD, dyslipidemia and previous smoker that presents to the ER for chest pain. thinks that it started some around 2 AM and she thinks it started some around 4 AM. She describes as a pressure/weight in the middle of her chest associated with shortness of breath. Shortness of breath has been gradually getting worse. She does intermittently get some neck pain on the right side but did have previous shoulder surgery and questions if that is the cause of it. Pain is very dull at this time. No belly pain, nausea, vomiting, or diarrhea. No dysuria, urgency, or frequency. She notes her previous heart attack was about 10 years ago and she cannot quite remember the symptoms but believes that these were somewhat similar. PAST MEDICAL HISTORY:See Below PAST SURGICAL HISTORY:See Below FAMILY HISTORY:See Below SOCIAL HISTORY:See Below HOME MEDICATIONS:See Below ALLERGIES:See Below VITALS:See Below PHYSICAL EXAMINATION: GENERAL: Sitting up in bed, alert, well appearing, well nourished, no distress, non-toxic EYE EXAM: normal conjunctiva. OROPHARYNX: no exudate, no erythema, lips, buccal mucosa, and tongue normal and mucous membranes are moist NECK: supple, no nuchal rigidity, no adenopathy, non-tender LUNGS: Clear to auscultation. Normal chest wall mechanics HEART: no murmurs, S1 normal and S2 normal ABDOMEN: abdomen soft, non-tender, normo-active bowel sounds, no masses, no rebound or guarding. UPPER EXTREMITIES: upper extremities are grossly normal. LOWER EXTREMITIES: No pitting edema. Calves are equal bilateral NEURO EXAM: Normal sensorium, cranial nerves II-XII grossly intact, normal speech, no gross weakness of arms, no gross weakness of legs. MEDICAL DECISION MAKING: Patient is a 72-year-old female with past medical history of CAD, vasospasms, previous smoker and hyperlipidemia that presents to the ER for midsternal chest pressure associate with shortness of breath. IV was established blood work was obtained. Labs show no significant leukocytosis or anemia. INR unremarkable. BMP with slightly elevated BUN. LFTs bilirubin was unremarkable. Troponin was negative. COVID-negative. Symptoms resolved with nitro. Patient was given aspirin. She was updated bedside. Previous cardiology records were reviewed. External records were reviewed. Patient was discussed with Dr. Ely Lino for further evaluation treatment and management. Triage Nursing notes reviewed. Limited review of prior medical records performed Vital Signs: reviewed and remarkable for no significant abnormalities Differential diagnosis: Cardiac ischemia, aortic dissection, pulmonary embolism, pneumothorax, pneumonia, pericarditis, myocarditis, esophageal rupture, GERD, cholecystitis, p ancreatitis, musculoskeletal, as well as other pathologies. ER treatment provided: See below Diagnostics interpreted by me include EKG and cardiac monitoring as listed below: -Cardiac Monitoring: An order was placed for continuous cardiac monitoring. The monitor shows a rate of 70 with sinus rhythm. -ECG: Sinus rhythm rate of 71 Normal axis No PVCs QTc [address] depressions in the inferior leads No significant change from previous performed in 2019 -Laboratory studies:Interpreted by me as stated above in MDM and shown below. Imaging studies: Xrays: As interpreted by me: Portable AP upright 1 view of the chest shows no focal infiltrate per my read CTs show: none Consultation(s): As described in MDM Procedures:none Critical Care: None Past Med/Surg History Medical History CAD (coronary artery disease) s/p LAD stent (2018) 2019 cardiac cath- patent stent Celiac disease CKD (chronic kidney disease), stage III Coronary vasospasm 2018 Dyslipidemia History of claustrophobia Trouble with "mask" over face Hyperlipidemia Migraine Occipital neuralgia Follows with [facility] neurology Osteoporosis Poor historian Raynaud's disease SVT (supraventricular tachycardia) s/p remote ablation Surgical History H/O heart artery stent Stent x1 (2018) History of cardiac cath 2019, "Mild nonobstructive coronary artery disease.. Widely patent proximal LAD stent.. 20-30% ostial LAD.. 20-30% proximal RCA" History of cardiac radiofrequency ablation History of cholecystectomy History of tonsillectomy Hx of colonoscopy Family History Mother Coronary heart disease Social History Smoking Status: Former smoker Tobacco Type: Cigarettes Second Hand Exposure: No; Hx Alcohol Use: No Hx Substance Use: No Preferred Language: Latvian Communication Ability: Effective Spool Salvager Required: No Beliefs That Will Affect Care: None Current Living Situation: Alone and Spouse Feels Safe at Home: Yes Assistive Devices: Denture - Upper Allergies Allergies Allergy/AdvReac Type Severity Reaction Status Date / Time Penicillins Allergy Unknown Tongue Verified 01/18/22 08:11 swelling codeine AdvReac Unknown Increased Verified 01/18/22 08:11 pain morphine AdvReac Unknown Hypotension Verified 01/18/22 08:11 oxycodone AdvReac Unknown Hallucinati Verified 01/18/22 08:11 ons/Confusi on Home Meds Home Medications Medication Instructions Recorded Confirmed aspirin 81 mg tablet,delayed 81 mg PO QAM 05/23/18 05/17/22 release (Aspir-) diltiazem HCl 180 mg 180 mg PO QAM 05/24/19 05/17/22 capsule,extended release 24 hr gabapentin 100 mg capsule 100 mg PO BID 12/09/21 05/17/22 alirocumab 150 mg/mL subcutaneous See Rx Instructions .Route .COMPLEX 12/22/21 05/17/22 pen injector (Praluent Pen) Previous Rx's Medication Instructions Recorded nitroglycerin 400 mcg/spray 0.4 mg sublingual Q5M #4.1 grams 06/29/18 translingual aerosol tramadol 50 mg tablet 50 mg PO Q6H PRN pain #20 tabs 12/22/21 Results & Data (ED) Vital Signs Vital Signs - 24 hr 05/17/22 06:02 05/17/22 06:15 05/17/22 06:25 Temperature 36.3 C L Temperature Source Temporal Artery Scan Pulse Rate 72 69 69 Pulse Rate from SpO2 Sensor Pulse Rhythm Regular Respiratory Rate 20 17 Respiratory Effort / Characteristics Non-Labored Respiratory Depth Normal Blood Pressure 136/73 Blood Pressure Mean 94 Pulse Oximetry 99 98 Oxygen Delivery Method Room Air Room Air Sepsis Recent Fever Within 48 Hours No Sepsis New/Unexplained Change in Mental Status N/A Sepsis Action Taken by Nursing No Action Required 05/17/22 06:15 05/17/22 06:19 05/17/22 06:19 Temperature Temperature Source Pulse Rate 70 73 Pulse Rate from SpO2 Sensor Pulse Rhythm Respiratory Rate 20 29 H Respiratory Effort / Characteristics Respiratory Depth Blood Pressure 120/81 Blood Pressure Mean 94 Pulse Oximetry Oxygen Delivery Method Sepsis Recent Fever Within 48 Hours Sepsis New/Unexplained Change in Mental Status Sepsis Action Taken by Nursing 05/17/22 06:30 05/17/22 06:31 05/17/22 06:31 Temperature Temperature Source Pulse Rate 76 59 L Pulse Rate from SpO2 Sensor 75 60 Pulse Rhythm Respiratory Rate 28 H 24 Respiratory Effort / Characteristics Respiratory Depth Blood Pressure 158/86 H Blood Pressure Mean 110 Pulse Oximetry 99 99 Oxygen Delivery Method Sepsis Recent Fever Within 48 Hours Sepsis New/Unexplained Change in Mental Status Sepsis Action Taken by Nursing 05/17/22 07:00 05/17/22 07:00 05/17/22 07:29 Temperature Temperature Source Pulse Rate 81 63 Pulse Rate from SpO2 Sensor Pulse Rhythm Respiratory Rate 16 27 H Respiratory Effort / Characteristics Respiratory Depth Blood Pressure 140/83 Blood Pressure Mean 102 Pulse Oximetry Oxygen Delivery Method Sepsis Recent Fever Within 48 Hours Sepsis New/Unexplained Change in Mental Status Sepsis Action Taken by Nursing 05/17/22 07:29 Temperature Temperature Source Pulse Rate Pulse Rate from SpO2 Sensor Pulse Rhythm Respiratory Rate Respiratory Effort / Characteristics Respiratory Depth Blood Pressure 118/71 Blood Pressure Mean 86 Pulse Oximetry Oxygen Delivery Method Sepsis Recent Fever Within 48 Hours Sepsis New/Unexplained Change in Mental Status Sepsis Action Taken by Nursing Laboratory Data 05/17/22 06:17 05/17/22 06:17 Lab Results 05/17/22 05/17/22 05/17/22 Range/Units 06:17 06:17 06:17 WBC 10.74 (4.8-10.8) K/ul RBC 4.45 (4.20-5.40) M/uL Hgb 13.9 (12.0-16.0) g/dl Hct 40.7 (37.0-47.0) % MCV 91.5 (80.0-100.0) fL MCH 31.2 (25.0-34.0) pg MCHC 34.2 (32.0-36.0) g/dL RDW Std Deviation 47.0 H (36.4-46.3) fL RDW Coeff of Lionel 13.9 (11.5-14.5) % Plt Count 249 (130-400) K/uL MPV 9.6 (9.4-12.4) fL Immature Gran % (Auto) 0.3 % Neut % (Auto) 83.7 % Lymph % (Auto) 9.7 % [place] % (Auto) 5.3 % Eos % (Auto) 0.6 % Baso % (Auto) 0.4 % Neut # (Auto) 9.00 H (1.40-6.50) K/uL Lymph # (Auto) 1.04 L (1.2-3.4) K/uL [place] # (Auto) 0.57 (0.11-0.59) K/uL Eos # (Auto) 0.06 (0-0.50) K/uL Baso # (Auto) 0.04 (0-0.2) K/uL Immature Gran # (Auto) 0.03 (0.01-0.20) K/uL PT 10.9 (9.0-12.0) Seconds INR 1.0 (0.9-1.1) APTT 25.4 (21.0-31.0) Seconds PTT Ratio 0.9 Sodium 138 (136-145) mmol/L Potassium 4.0 (3.5-5.1) mmol/L Chloride 106 (98-107) mmol/L Carbon Dioxide 25 (21-32) mmol/L Anion Gap 7 (3-11) BUN 27 H (6-23) mg/dl Creatinine 0.97 (0.6-1.2) mg/dl Est Cr Clr Drug Dosing 35.1 ml/min Est GFR ( Amer) 66.7 ml/min Est GFR (Non-Af Amer) 57.5 ml/min BUN/Creatinine Ratio 27.8 H (10-20) Glucose 115 H (70-99(Fasting)) mg/dl Calcium 10.0 (8.5-10.1) mg/dl Total Bilirubin 0.9 (0.2-1.0) mg/dl AST 49 H (13-39) U/L ALT 23 (7-52) U/L Alkaline Phosphatase 48 (34-104) U/L Troponin I High Sens 3.7 (0-14) pg/ml Total Protein 8.0 (6.0-8.3) gm/dl Albumin 4.2 (3.4-5.0) gm/dl Globulin 3.8 (2.5-4.0) gm/dl Albumin/Globulin Ratio 1.1 (0.9-2) SARS-CoV-2, RNA, NAAT (NEGATIVE) 05/17/22 Range/Units 06:54 WBC (4.8-10.8) K/ul RBC (4.20-5.40) M/uL Hgb (12.0-16.0) g/dl Hct (37.0-47.0) % MCV (80.0-100.0) fL MCH (25.0-34.0) pg MCHC (32.0-36.0) g/dL RDW Std Deviation (36.4-46.3) fL RDW Coeff of Lionel (11.5-14.5) % Plt Count (130-400) K/uL MPV (9.4-12.4) fL Immature Gran % (Auto) % Neut % (Auto) % Lymph % (Auto) % [place] % (Auto) % Eos % (Auto) % Baso % (Auto) % Neut # (Auto) (1.40-6.50) K/uL Lymph # (Auto) (1.2-3.4) K/uL [place] # (Auto) (0.11-0.59) K/uL Eos # (Auto) (0-0.50) K/uL Baso # (Auto) (0-0.2) K/uL Immature Gran # (Auto) (0.01-0.20) K/uL PT (9.0-12.0) Seconds INR (0.9-1.1) APTT (21.0-31.0) Seconds PTT Ratio Sodium (136-145) mmol/L Potassium (3.5-5.1) mmol/L Chloride (98-107) mmol/L Carbon Dioxide (21-32) mmol/L Anion Gap (3-11) BUN (6-23) mg/dl Creatinine (0.6-1.2) mg/dl Est Cr Clr Drug Dosing ml/min Est GFR ( Amer) ml/min Est GFR (Non-Af Amer) ml/min BUN/Creatinine Ratio (10-20) Glucose (70-99(Fasting)) mg/dl Calcium (8.5-10.1) mg/dl Total Bilirubin (0.2-1.0) mg/dl AST (13-39) U/L ALT (7-52) U/L Alkaline Phosphatase (34-104) U/L Troponin I High Sens (0-14) pg/ml Total Protein (6.0-8.3) gm/dl Albumin (3.4-5.0) gm/dl Globulin (2.5-4.0) gm/dl Albumin/Globulin Ratio (0.9-2) SARS-CoV-2, RNA, NAAT NEGATIVE (NEGATIVE) Administered Medications Nitroglycerin (Nitroglycerin Sl 0.4 Mg/Tab Tab) 0.4 mg SL UD PRN PRN Reason: Chest Pain Stop: 06/16/22 08:27 Last Admin: 05/17/22 10:32 Dose: 0.4 mg Documented By: Admin: 05/17/22 08:54 Dose: 0.4 mg Documented By: JESSICA Discontinued Medications Aspirin (Aspirin Chew 324 Mg) 324 mg PO NOW STA Stop: 05/17/22 06:51 Last Admin: 05/17/22 06:59 Dose: 324 mg Documented By: CHLOÉ Diltiazem HCl (Diltiazem Hcl 30 Mg Tab) 30 mg PO NOW STA Stop: 05/17/22 11:03 Last Admin: 05/17/22 11:22 Dose: 30 mg Documented By: JESSICA Fentanyl Citrate (Fentanyl Citrate 100 Mcg/2 Ml Vial) Confirm Administered Dose 100 mcg .ROUTE .STK-MED ONE Stop: 05/17/22 11:23 Last Increment: 05/17/22 12:39 Dose: 25 mcg Documented By: CYNTHIA Heparin Sodium (Porcine) (Heparin (Porcine) 1000 Unit/Ml 10 Ml (Security Agent Use Only)) Confirm Administered Dose 10,000 units .ROUTE .STK-MED ONE Stop: 05/17/22 11:22 Last Admin: 05/17/22 12:39 Dose: Not Given Documented By: CYNTHIA Heparin Sodium/Sodium Chloride (Heparin In Nss Infusion 1000 Unit/500 Ml (2 U/Ml) Bag) Confirm Administered Dose 3,000 units IV .STK-MED ONE Stop: 05/17/22 11:23 Last Admin: 05/17/22 12:39 Dose: 3,000 units Documented By: PATRICIO Midazolam HCl (Midazolam Hcl 1 Mg/Ml 2ml Vial) Confirm Administered Dose 2 mg .ROUTE .STK-MED ONE Stop: 05/17/22 11:22 Last Increment: 05/17/22 12:39 Dose: 1 mg Documented By: CYNTHIA Nicardipine HCl (Nicardipine Hcl Inj 2.5 Mg/Ml 10 Ml Amp) Confirm Administered Dose 25 mg .ROUTE .STK-MED ONE Stop: 05/17/22 11:22 Last Admin: 05/17/22 12:39 Dose: 25 mg Documented By: PATRICIO Nitroglycerin (Nitroglycerin Sl 0.4 Mg/Tab Tab) 0.4 mg SL NOW STA Stop: 05/17/22 06:51 Last Admin: 05/17/22 06:59 Dose: 0.4 mg Documented By: CHLOÉ Nitroglycerin (Nitroglycerin Sl 0.4 Mg/Tab Tab) 0.4 mg SL NOW STA Stop: 05/17/22 07:29 Last Admin: 05/17/22 07:30 Dose: 0.4 mg Documented By: CHLOÉ Nitroglycerin (Nitroglycerin 2% Ointment 30gm Tube) 0.5 inch EXT Q6H STA Stop: 05/17/22 11:14 Last Admin: 05/17/22 11:22 Dose: 0.5 inch Documented By: JESSICA Nitroglycerin/Dextrose (Nitroglycerin/D5w 100mcg/Ml 20ml Syr) Confirm Administered Dose 2,000 mcg .ROUTE .STK-MED ONE Stop: 05/17/22 11:23 Last Admin: 05/17/22 12:40 Dose: 2,000 mcg Documented By: PATRICIO Imaging Data Radiologist's Impression: Chest X-Ray 05/17/22 06:11 XR chest 1V portable HISTORY: Chest pain, nonspecific COMPARISON: Chest 12/12/2021. FINDINGS: No pneumothorax. No pleural effusions. The cardiac silhouette is shavonne l in size. Prior cholecystectomy. Emphysema. Chronic interstitial thickening persists. Focal lung consolidations to suggest a pneumonia. No evidence for pulmonary edema. The right midlung zone nodular density seen on the prior study is not clearly identified on today's examination. IMPRESSION: 1. No acute process within the chest. 2. Mild emphysema and mild chronic interstitial thickening persists. 3. The right midlung zone nodular density seen on the prior chest x-ray is not clearly identified on today's examination. However, follow-up nonemergent chest CT is recommended for further evaluation. ACT 112: Positive. There are findings on this exam that require communication between the performing entity and the patient following Patient Test Result Information Act ([place] Act 112) guidelines. Electronically signed by: Maximiliano Wells M.D. 05/17/2022 10:55 AM Discharge Plan Visit Data Chief Complaint: Chest Pain Stated Complaint: CHEST PAIN ED Provider: Hunter Graves Discharge Problem: Chest pain, Elevated blood sugar Patient Disposition: Admitted As Inpatient Discharge Instructions Interventions: ED Discharge Assessment Last Done: 05/17/22 08:11
[2022-05-17 07:06] LABS: Basophils # (auto) 0.04 K/uL (0-0.2); Basophils % (auto) 0.4 %; Eosinophils # (auto) 0.06 K/uL (0-0.50); Eosinophils % (auto) 0.6 %; Hematocrit (blood only) 40.7 % (37.0-47.0); Hemoglobin 13.9 g/dl (12.0-16.0); Immature Granulocytes # (auto) 0.03 K/uL (0.01-0.20); Immature Granulocytes % (auto) 0.3 %; Lymphocytes # (auto) 1.04 K/uL (1.2-3.4); Lymphocytes % (auto) 9.7 %; Mean Corpuscular Hemoglobin 31.2 pg (25.0-34.0); Mean Corpuscular Hgb Conc 34.2 g/dL (32.0-36.0); Mean Corpuscular Volume 91.5 fL (80.0-100.0); Mean Platelet Volume 9.6 fL (9.4-12.4); Monocytes # (auto) 0.57 K/uL (0.11-0.59); Monocytes % (auto) 5.3 %; Neutrophils % (auto) 83.7 %; Platelet Count 249 K/uL (130-400); RDW Coefficient of Variation 13.9 % (11.5-14.5); Red Blood Count 4.45 M/uL (4.20-5.40); White Blood Count 10.74 K/ul (4.8-10.8)
[2022-05-17 07:10] LABS: Albumin Globulin Ratio 1.1 (0.9-2); Albumin Level 4.2 gm/dl (3.4-5.0); BUN Creatinine Ratio 27.8 (10-20); Bilirubin,Total 0.9 mg/dl (0.2-1.0); Creatinine Clr Calc Pharmacy 35.1 ml/min; Est GFR (African American) 66.7 ml/min; Est GFR (Non-African American) 57.5 ml/min; Globulin 3.8 gm/dl (2.5-4.0)
[2022-05-17 07:26] LABS: Troponin I High Sensitivity 3.7 pg/ml (0-14)
[2022-05-17 07:27] LABS: Partial Thromboplastin Ratio 0.9; Partial Thromboplastin Time 25.4 Seconds (21.0-31.0); Prothrombin Time 10.9 Seconds (9.0-12.0)
[2022-05-17] MEDS ORDERED: ACETAMINOPHEN 325 MG TAB PO PRN (08:28)
[2022-05-17] MEDS ORDERED: POLYETHYLENE (MIRALAX) 17 GM PACK PO PRN (08:28)
[2022-05-17] MEDS ORDERED: ENOXAPARIN INJ 30 MG/0.3 ML SYR SQ SCH (08:28)
[2022-05-17] MEDS: NITROGLYCERIN SL 0.4 MG/TAB TAB SL PRN ×2 (08:54→10:32)
--- NOTE | 2022-05-17 09:20 | History & Physical Report ---
Date of Service May 17, 2022 Assessment & Plan (1) Chest pain: (2) Vasospastic angina: (3) CAD (coronary artery disease): (4) Dyslipidemia: (5) Raynaud's disease: Plan 72 y/o female presents with ongoing anterior chest wall pain unrelieved from sublingual nitro. History of Prinzmetal angina and stent placement 2018. History of SVT status post ablation 2019. Noncompliance with medications for HTN. No EKG changes x2 while here; troponin negative. Due to persistent chest pain per cardiology proceed with heart catheterization in PCU admission thereafter. Chest Pain: CAD: Prinzmetal Angina: -Follows with Dr. Harry OPT -Stent x1 LAD 2018 -EKG Normal Sinus Rhythm; repeat with no ST changes -Initial Troponin negative; will trend -ASA 324 in ED -Prescribed Diltiazem 180 mg daily; reports non-compliance with this -Nitro SL administered without relief. -Cardiology aware and proceeding with PCI after evaluation. -Upcoming [facility] cards appt 06/12. HLD: -Takes Praulent biwekly; continue -Lipid panel 03/08/22: TG 89, HDL 74, LDL 119. Raynaud's Disease: -Follows with Rheumatology Q6 months Disposition: PCP: Dr. Linette Harry Code Status: Full Code VTE Prophylaxis: Teds and SCDs for now A total of 87 minutes was spent with greater than 50% of that time personally reviewing all current laboratory work and diagnostic imaging studies obtained in the ED. Additionally, I was able to review the patients past medication reconciliation and history with direct visualization in the patients chart. Included in the time above, a portion of that time was spent assessing the patient while discussing and collaborating with specialists, if necessary, and making medical decisions regarding orders to be placed. All of the aforementioned completed while collaborating with Dr. Haq for a full treatment plan. Please see his addendum for further details. Admission and Anticipated Discharge Date Admission Date: May 17, 2022 History of Present Illness Chief Complaint: chest pain Primary Care Provider: Linette Harry DO Ms. Paz is a 72 year old female that presented to the [facility] with chest pain that woke her from her sleep at 0400 this morning and lasted until she was in the ED. The chest pain affected her right side of her chest and was associated with some SOB. She reports her chest pain that ranges 4-8/10. She did take SL Nitro at home without relief. She does have a prescription for Sublingual Nitro but has not used in over a year prior to today. Nitro in the ED provided relief when she was admitted into her hospital room. Patient has a history of Prinzmetal angina. ASA administered in ED. She did have a stent placed s/p PCI to her LAD in 2018. Cardiac catheterization was performed in 2019 with 20-0% occlusion in ostial LAD and RCA without further intervention. In review of EMR: Cardiac catheterization report summary May 24, 2018: Catheterization performed secondary to abnormal stress test suggesting basal inferior ischemia. 20 to 30% ostial LAD Patent LAD stent 20 to 30% proximal RCA No evidence of vasospasm Cardiac catheterization February 07, 2018 report summary: Ostial LAD vasospasm resolved with IC nitroglycerin Patent proximal LAD stent. 40% proximal RCA - possibly spasm Elevated left ventricular end-diastolic pressure: 19mmHg Pt states that before she had her stent placed in 2018. She was at the [facility] and experienced a syncope with collapse which led to pericardial nodule removal which was biopsied and was non-malignant. Additionally, per review of her EMR chart, she had SVT and underwent ablation in [facility]. Additional PMH includes Raynauds Disease (Follows with Rheumatology), HLD with statin intolerance, SVT s/p ablation, OA, and celiac disease. At baseline, she is quite active, walking 5 miles daily. Patient is ordered Diltiazem and Aspirin, but she reports not taking them. She thought that The Praluent injections she was taking would 'take care of it'. Currently, patient reports her chest pain 4/10. Pt denies BAILEY, dizziness, N/V/D, palpitations, abdominal pain, constipation, fever and chills at home. Patient denies alcohol, tobacco products or recreational drug use. She is NPO and has not eaten since last evening. I sent Dr. Kay a tiger text to inform him of her admission for evaluation. After he saw her, plan was to proceed with PCI in laboratory chief. Patient will be admitted to PCU for further evaluation and management. Please see A/P for further details. Allergies Allergy/AdvReac Type Severity Reaction Status Date / Time Penicillins Allergy Unknown Tongue Verified 01/18/22 08:11 swelling codeine AdvReac Unknown Increased Verified 01/18/22 08:11 pain morphine AdvReac Unknown Hypotension Verified 01/18/22 08:11 oxycodone AdvReac Unknown Hallucinati Verified 01/18/22 08:11 ons/Confusi on Home Medications Medication Instructions Recorded Confirmed Type aspirin 81 mg tablet,delayed 81 mg PO QAM 05/23/18 05/17/22 History release (Aspir-) nitroglycerin 400 mcg/spray 0.4 mg sublingual Q5M #4.1 grams 06/29/18 05/17/22 Rx translingual aerosol diltiazem HCl 180 mg 180 mg PO QAM 05/24/19 05/17/22 History capsule,extended release 24 hr gabapentin 100 mg capsule 100 mg PO BID 12/09/21 05/17/22 History alirocumab 150 mg/mL subcutaneous See Rx Instructions .Route .COMPLEX 12/22/21 05/17/22 History pen injector (Praluent Pen) tramadol 50 mg tablet 50 mg PO Q6H PRN pain #20 tabs 12/22/21 05/17/22 Rx Past Med/Surg History Medical History CAD (coronary artery disease) s/p LAD stent (2018) 2019 cardiac cath- patent stent Celiac disease CKD (chronic kidney disease), stage III Coronary vasospasm 2018 Dyslipidemia History of claustrophobia Trouble with "mask" over face Hyperlipidemia Migraine Occipital neuralgia Follows with [facility] neurology Osteoporosis Poor historian Raynaud's disease SVT (supraventricular tachycardia) s/p remote ablation Surgical History H/O heart artery stent Stent x1 (2018) History of cardiac cath 2019, "Mild nonobstructive coronary artery disease.. Widely patent proximal LAD stent.. 20-30% ostial LAD.. 20-30% proximal RCA" History of cardiac radiofrequency ablation History of cholecystectomy History of tonsillectomy Hx of colonoscopy Family History Mother Coronary heart disease Social History Smoking Status: Former smoker Tobacco Type: Cigarettes Second Hand Exposure: No; Hx Alcohol Use: No Hx Substance Use: No Preferred Language: Turkish Communication Ability: Effective Cinder Pitman Required: No Beliefs That Will Affect Care: None Current Living Situation: Alone and Spouse Feels Safe at Home: Yes Assistive Devices: Denture - Upper Review of Systems Review of Systems: Neuro: (-) Falls, trauma, slurred speech HEENT: (-) BAILEY, dizziness, dysphagia, visual or auditory changes CV: (+) CP, palpitations, swelling Resp: (+) SOB GI: (-) appetite changes, N/V/D, bowel changes : (-) urinary changes Skin: (-) rashes Psych: (-) anxiety, depression Physical Exam Physical Exam: See Dr. Haq's physical examination for further details Results & Data Results & Data ([facility]) Vital Signs (Past 12 Hours) Vital Signs Temp Pulse Pulse Resp BP BP Pulse Ox 05/17/22 09:03 72 125/71 05/17/22 08:48 36.5 C 70 18 104/62 97 05/17/22 07:29 118/71 05/17/22 07:29 63 27 H 05/17/22 07:00 81 16 05/17/22 07:00 140/83 05/17/22 06:31 158/86 H 05/17/22 06:31 59 L 24 99 05/17/22 06:30 76 28 H 99 05/17/22 06:19 120/81 05/17/22 06:19 73 29 H 05/17/22 06:15 70 20 05/17/22 06:25 69 17 98 05/17/22 06:15 69 05/17/22 06:02 36.3 C L 72 20 136/73 99 O2 Del Method 05/17/22 09:03 05/17/22 08:48 Room Air 05/17/22 07:29 05/17/22 07:29 05/17/22 07:00 05/17/22 07:00 05/17/22 06:31 05/17/22 06:31 05/17/22 06:30 05/17/22 06:19 05/17/22 06:19 05/17/22 06:15 05/17/22 06:25 Room Air 05/17/22 06:15 05/17/22 06:02 Room Air Laboratory Results Short CBC 05/17/22 Range/Units 06:17 WBC 10.74 (4.8-10.8) K/ul Hgb 13.9 (12.0-16.0) g/dl Hct 40.7 (37.0-47.0) % Plt Count 249 (130-400) K/uL BMP 05/17/22 06:17 Sodium 138 Potassium 4.0 Chloride 106 Carbon Dioxide 25 BUN 27 H Creatinine 0.97 Glucose 115 H Calcium 10.0 Liver Function 05/17/22 Range/Units 06:17 Total Bilirubin 0.9 (0.2-1.0) mg/dl AST 49 H (13-39) U/L ALT 23 (7-52) U/L Alkaline Phosphatase 48 (34-104) U/L Albumin 4.2 (3.4-5.0) gm/dl Code Status & VTE Plan Code Status Full Code in the event of cardiac or respiratory arrest VTE Prophylaxis Plan VTE Prophylaxis will be ordered: Yes Supervising Physician Co-Signing Physician Notes History and physical exam performed by me. History notable for 72-year-old woman with history of Prinzmetal angina, CAD status post stents to the LAD in 2018, Raynaud's disease, who presents with chest pain that started this morning around 4 to 5 AM, woke patient from sleep, describes as pressure, nonradiating involving central and right side of the chest associated with shortness of breath. Reports chest pain improved with nitro in the hospital but never resolved. Currently having chest pain described as 5/10. Patient reports she only takes her Praluent and has not been taking aspirin and other medication for some time. On physical exam, General: Elderly woman, no acute distress Eyes: PERRL, conjunctivae normal, not pale, anicteric sclerae, EOM intact bilaterally ENMT: External ear and nose normal, oropharynx normal Respiratory: Normal respiratory effort, no respiratory distress, lungs clear to auscultation, no crackles and no wheezes Cardiovascular: RRR S1 S2 Gastrointestinal (Abdomen): Abdomen is not distended, soft, non-tender to palpation, no guarding, no palpable hepatosplenomegaly, normal bowel sounds Musculoskeletal: No pedal edema Neurologic: Alert and oriented x 3, No focal weakness, sensation grossly intact Psychiatric: Euthymic affect Chest pain in a patient with previous mental angina and CAD who has been off antiplatelet for some time. Reported some improvement with nitro. EKG showed normal sinus rhythm. Initial troponin was normal. Considering patient's history, patient will need a cardiac catheterization. Screw Cutter made aware. Keep n.p.o. Continue nitro as needed. Patient wanted to resume her antiplatelet and diltiazem Other plans as detailed by Edith MONTGOMERY (3) CAD (coronary artery disease) Associated angina: with angina and documented spasm Coronary Disease- Associated Artery/Lesion type: [place] artery [place] vs. transplanted heart: [place] heart Qualified Code(s): I25.111 - Atherosclerotic heart disease of [place] coronary artery with angina pectoris with documented spasm
--- NOTE | 2022-05-17 09:59 | Cardiology Consultation ---
Date of Consultation May 17, 2022 Assessment & Plan (1) Chest pain: (2) Elevated blood sugar: (3) Vasospastic angina: (4) Diastolic dysfunction, left ventricle: (5) Rotator cuff tendonitis: (6) SVT (supraventricular tachycardia): (7) CKD (chronic kidney disease), stage III: (8) CAD (coronary artery disease): (9) Dyslipidemia: (10) Nonadherence to medication: Plan Given the fact that she has ongoing chest discomfort we will proceed directly to diagnostic cardiac catheterization I have asked Dr. Ross to perform the procedure and is kindly agreed. Further recommendations to follow. In the meantime, I have ordered 30 mg of p.o. Cardizem along with 1/2 inch of n itroglycerin for pain relief We will also need to update an echocardiogram at some point. History of Present Illness Reason for Consultation: chest pain Requesting Physician: AIYANA Attending Physician: Ely Lino, DO History of Present Illness The patient is a very pleasant 72-year-old woman who presented to [facility] emergency department with complaints of chest pain and worsening shortness of breath. At baseline, the patient states that she is very active walking 5 miles every morning. Lately, she states that she is been able to complete her walks is normal but later in the afternoon she would then become significantly short of breath and tired. On the morning of presentation she states that she woke up with chest pain. She states that the pain seemed to come from the right side of her chest but then radiated to the left. Sublingual nitroglycerin taken at home did not provide any relief. She notes that its been . In the emergency department she received nitroglycerin with significant improvement but then again required further sublingual nitroglycerin for ongoing chest pain upon arrival to the telemetry unit. She describes the pain as a pressure sensation. She is unsure if this is similar to the discomfort she had prior to her stent in her LAD. Upon further questioning, the patient states that she is not taking her aspirin or Cardizem for quite some time now. PMHX as per most recent cardiology visit: 1. Prinzmetal angina -above average functional capacity per history with musculoskeletal shoulder and back discomfort -exercise stress echo negative for inducible ischemia high workload 09/2020 2. Chronic diastolic heart failure with elevated left ventricular end- diastolic pressure -compensated 3. Raynaud's phenomenon 4. HTN 5. Dyslipidemia - controlled; tolerating PCSK9 inhibitor 6. History of supraventricular tachycardia s/p ablation [facility]. 7. Family history of premature atherosclerotic coronary disease. 8. Former heavy tobacco use. 9. B/L LE varicosities Allergies Allergy/AdvReac Type Severity Reaction Status Date / Time Penicillins Allergy Unknown Tongue Verified 01/18/22 08:11 swelling codeine AdvReac Unknown Increased Verified 01/18/22 08:11 pain morphine AdvReac Unknown Hypotension Verified 01/18/22 08:11 oxycodone AdvReac Unknown Hallucinati Verified 01/18/22 08:11 ons/Confusi on Home Medications Medication Instructions Recorded Confirmed Type aspirin 81 mg tablet,delayed 81 mg PO QAM 05/23/18 05/17/22 History release (Aspir-) nitroglycerin 400 mcg/spray 0.4 mg sublingual Q5M #4.1 grams 06/29/18 05/17/22 Rx translingual aerosol diltiazem HCl 180 mg 180 mg PO QAM 05/24/19 05/17/22 History capsule,extended release 24 hr gabapentin 100 mg capsule 100 mg PO BID 12/09/21 05/17/22 History alirocumab 150 mg/mL subcutaneous See Rx Instructions .Route .COMPLEX 12/22/21 05/17/22 History pen injector (Praluent Pen) tramadol 50 mg tablet 50 mg PO Q6H PRN pain #20 tabs 12/22/21 05/17/22 Rx Patient History Medical History CAD (coronary artery disease) s/p LAD stent (2018) 2019 cardiac cath- patent stent Celiac disease CKD (chronic kidney disease), stage III Coronary vasospasm 2018 Dyslipidemia History of claustrophobia Trouble with "mask" over face Hyperlipidemia Migraine Occipital neuralgia Follows with [facility] neurology Osteoporosis Poor historian Raynaud's disease SVT (supraventricular tachycardia) s/p remote ablation Surgical History H/O heart artery stent Stent x1 (2018) History of cardiac cath 2019, "Mild nonobstructive coronary artery disease.. Widely patent proximal LAD stent.. 20-30% ostial LAD.. 20-30% proximal RCA" History of cardiac radiofrequency ablation History of cholecystectomy History of tonsillectomy Hx of colonoscopy Family History Mother Coronary heart disease Social History Smoking Status: Former smoker Tobacco Type: Cigarettes Second Hand Exposure: No; Hx Alcohol Use: No Hx Substance Use: No Preferred Language: Senegalese Communication Ability: Effective Counter Pocket Sewer Required: No Beliefs That Will Affect Care: None Current Living Situation: Alone and Spouse Feels Safe at Home: Yes Assistive Devices: Denture - Upper Review of Systems Review of Systems: All systems reviewed & are unremarkable except as noted in HPI & below Physical Exam Physical Exam: General: Awake, alert and oriented x 3. Mild distress HEENT: Normocephalic, atraumatic. Pupils equal, round and reactive to light and accommodation. Extraocular muscles are intact. Anicteric sclera. Moist mucous membranes. Neck: No JVD. No bruit. Cardiovascular: Regular. Positive S-4. Normal S-1 and S-2. No S-3. No murmurs or rubs. Pulmonary: Clear to auscultation B/L. No rales, rhonchi or wheezing Abdomen: Bowel sounds x 4, soft. No rebound, guarding or tenderness. No organomegaly. Extremities: No clubbing, cyanosis or edema. +2 pedal pulses bilaterally. Skin: Warm and dry. Results & Data ([facility]) Vital Signs (Past 12 Hours) Vital Signs Temp Pulse Pulse Resp BP BP Pulse Ox 05/17/22 09:03 72 125/71 05/17/22 08:48 36.5 C 70 18 104/62 97 05/17/22 07:29 118/71 05/17/22 07:29 63 27 H 05/17/22 07:00 81 16 05/17/22 07:00 140/83 05/17/22 06:31 158/86 H 05/17/22 06:31 59 L 24 99 05/17/22 06:30 76 28 H 99 05/17/22 06:19 120/81 05/17/22 06:19 73 29 H 05/17/22 06:15 70 20 05/17/22 06:25 69 17 98 05/17/22 06:15 69 05/17/22 06:02 36.3 C L 72 20 136/73 99 O2 Del Method 05/17/22 09:03 05/17/22 08:48 Room Air 05/17/22 07:29 05/17/22 07:29 05/17/22 07:00 05/17/22 07:00 05/17/22 06:31 05/17/22 06:31 05/17/22 06:30 05/17/22 06:19 05/17/22 06:19 05/17/22 06:15 05/17/22 06:25 Room Air 05/17/22 06:15 05/17/22 06:02 Room Air Diagnostic Findings Cardiac catheterization report summary May 24, 2018: Catheterization performed secondary to abnormal stress test suggesting basal inferior ischemia. 20 to 30% ostial LAD Patent LAD stent 20 to 30% proximal RCA No evidence of vasospasm Cardiac catheterization February 07, 2018 report summary: Ostial LAD vasospasm resolved with IC nitroglycerin Patent proximal LAD stent. 40% proximal RCA - possibly spasm Elevated left ventricular end-diastolic pressure: 19mmHg Exercise stress echo report summary October 05, 2020: The stress echo is negative for inducible ischemia. Exercise capacity is above average . Heart rate response to stress was normal. Blood pressure response to exercise was normal. The stress EKG response showed no evidence of ischemia. The left ventricular wall motion is normal. The left ventricular wall motion with stress is normal. The left ventricular ejection fraction increases normally with stress. The left ventricular systolic function is normal. The LV wall thickness is mildly increased (concentric). The qualitative LV ejection fraction is 60-64% (normal). Exercise stress echo report January 31, 2018: Exercise capacity is average . Heart rate response to stress was normal. Blood pressure response to exercise was hypertensive. Atypical chest pain was noted with stress. Dyspnea was noted with stress. Symptoms were relieved by nitroglycerin post stress. Abnormal upsloping ST-depression of 2 mm or more is noted in inferior leads. The left ventricular wall motion is normal. The left ventricular wall motion with stress is normal. The left ventricular ejection fraction increases normally with stress. The left ventricular systolic function is normal. The qualitative LV ejection fraction is 60-64% (normal). The stress echo is indeterminate for inducible ischemia. Exercise stress echo report June 29, 2016: The stress test was terminated due to fatigue Atypical chest pain was noted with stress. The stress EKG response showed no evidence of ischemia. The exercise echocardiographic examination is normal without resting left ventricular wall motion abnormalities or inducible ischemia. The left ventricular cavity size is normal. The qualitative LV ejection fraction is 55-59% (normal). Mild mitral regurgitation is present. Mild tricuspid regurgitation is present. Exercise Stress Echo report 11/2014: There is no definite echocardiographic or EKG evidence of resting or inducible ischemia. Symptoms were described with exercise as summarized below. The left ventricular ejection fraction increases normally with stress. The left ventricular wall motion with stress is normal. The stress EKG response was normal. Exercise was terminated due to target heart rate having been achieved. Patient described onset of "5/10 chest discomfort" during stage II which decreased to an intensity of"3-5/10" during stage 3. Patient described "squeezing" and left arm near peak stress. Chest discomfort and arm discomfort resolved 2 minutes into the postexercise recovery interval. He focused echocardiographic evaluation was performed today, complete resting study was performed at [facility] on 11/09/2014. (8) CAD (coronary artery disease) Associated angina: with angina and documented spasm Coronary Disease- Associated Artery/Lesion type: [place] artery [place] vs. transplanted heart: [place] heart Qualified Code(s): I25.111 - Atherosclerotic heart disease of [place] coronary artery with angina pectoris with documented spasm
--- NOTE | 2022-05-17 10:17 | Electrocardiogram Report ---
Test Reason : Blood Pressure : / mmHG Vent. Rate : 071 BPM Atrial Rate : 071 BPM P-R Int : 146 ms QRS Dur : 078 ms QT Int : 380 ms P-R-T Axes : 059 000 018 degrees QTc Int : 412 ms Normal sinus rhythm Possible Left atrial enlargement Borderline ECG When compared with ECG of 24-MAY-2019 11:31, No significant change was found Confirmed by David Cornell ([id number]) on 05/17/2022 10:17:20 AM Referred By: Confirmed By:Aayush Cornell
--- NOTE | 2022-05-17 10:20 | Electrocardiogram Report ---
Test Reason : Blood Pressure : / mmHG Vent. Rate : 061 BPM Atrial Rate : 061 BPM P-R Int : 130 ms QRS Dur : 076 ms QT Int : 404 ms P-R-T Axes : 058 -01 014 degrees QTc Int : 406 ms Poor data quality, interpretation may be adversely affected Normal sinus rhythm Possible Left atrial enlargement Abnormal ECG When compared with ECG of 17-MAY-2022 06:10, (unconfirmed) Nonspecific T wave abnormality now evident in Anterior leads Confirmed by David Cornell ([id number]) on 05/17/2022 10:20:07 AM Referred By: REFERRED SELF Confirmed By:Aayush Cornell
--- NOTE | 2022-05-17 10:56 | XRay Report ---
XR chest 1V portable HISTORY: Chest pain, nonspecific COMPARISON: Chest 12/12/2021. FINDINGS: No pneumothorax. No pleural effusions. The cardiac silhouette is normal in size. Prior chol ecystectomy. Emphysema. Chronic interstitial thickening persists. Focal lung consolidations to sugges t a pneumonia. No evidence for pulmonary edema. The right midlung zone nodular density seen on the pr ior study is not clearly identified on today's examination. IMPRESSION: 1. No acute process within the chest. 2. Mild emphysema and mild chronic interstitial thickening persists. 3. The right midlung zone nodular density seen on the prior chest x-ray is not clearly identified on today's examination. However, follow-up nonemergent chest CT is recommended for further evaluation. ACT 112: Positive. There are findings on this exam that require communication between the performing entity and the patient following Patient Test Result Information Act ([place] Act 112) guidelines. Electronically signed by: Maximiliano Wells M.D. 05/17/2022 10:55 AM
[2022-05-17] MEDS ORDERED: dilTIAZem HCL 30 MG TAB PO STA (11:02)
[2022-05-17] MEDS ORDERED: NITROGLYCERIN 2% OINTMENT 30GM TUBE EXT STA (11:13)
[2022-05-17] MEDS ORDERED: HEPARIN (PORCINE) 1000 UNIT/ML 10 ML (CATH LAB USE ONLY) ONE (11:21)
[2022-05-17] MEDS ORDERED: MIDAZOLAM HCL 1 MG/ML 2ML VIAL ONE (11:21)
[2022-05-17] MEDS ORDERED: niCARdipine HCL INJ 2.5 MG/ML 10 ML AMP ONE (11:21)
[2022-05-17] MEDS ORDERED: fentaNYL citrate 100 MCG/2 ML VIAL ONE (11:22)
[2022-05-17] MEDS ORDERED: NITROGLYCERIN/D5W 100MCG/ML 20ML SYR ONE (11:22)
[2022-05-17] MEDS ORDERED: traMADol HCL 50 MG TABLET PO PRN (12:44)
--- NOTE | 2022-05-17 12:46 | Post Anesthesia Assessment ---
Date of Service May 17, 2022 Post Sedation Assessment Vital Signs Temp Pulse Pulse Pulse Resp BP BP 05/17/22 12:35 79 16 141/69 H 05/17/22 10:41 75 18 113/67 05/17/22 10:20 80 134/70 05/17/22 09:03 72 125/71 05/17/22 08:48 36.5 C 70 18 104/62 05/17/22 07:29 118/71 05/17/22 07:29 63 27 H 05/17/22 07:00 81 16 05/17/22 07:00 140/83 05/17/22 06:31 158/86 H 05/17/22 06:31 59 L 24 05/17/22 06:30 76 28 H 05/17/22 06:19 120/81 05/17/22 06:19 73 29 H 05/17/22 06:15 70 20 05/17/22 06:25 69 17 05/17/22 06:15 69 05/17/22 06:02 36.3 C L 72 20 136/73 Pulse Ox O2 Del Method 05/17/22 12:35 98 Room Air 05/17/22 10:41 94 Room Air 05/17/22 10:20 05/17/22 09:03 05/17/22 08:48 97 Room Air 05/17/22 07:29 05/17/22 07:29 05/17/22 07:00 05/17/22 07:00 05/17/22 06:31 05/17/22 06:31 99 05/17/22 06:30 99 05/17/22 06:19 05/17/22 06:19 05/17/22 06:15 05/17/22 06:25 98 Room Air 05/17/22 06:15 05/17/22 06:02 99 Room Air Recovery Score Activity: Moves 4 extremities Respiration: Deep Breath/Cough Circulation: +/-20% PreAnes Value Consciousness: Fully Awake Oxygen Saturation: > 92% On Room Air Post Anesthesia Score: 10 Discharge Sedation Level of Care: Fast Track Phase II Post Sedation Plan On clinical assessment, the patient appears to have tolerated the sedation without complications. Patient is recovering as anticipated. Patient will continue to be monitored by nursing and may be discharged when sedation discharge criteria are met per below protocol. Upon Completions of procedure up to 15 minutes continue every 5 minute vital signs and the P.A.R. score; then discharge to a Phase I or Fast Track to Phase II per the following guidelines: * Discharge Patient to appropriate Phase II area if PAR is 8 or greater or return to pre- procedure baseline. The post - procedure orders will be as directed. * If PAR score is less than 8 or not return to pre-procedure baseline then patient will follow Phase I monitoring till PAR is reached for Phase II. The Phase I may be done in procedure room or may call to secure a Phase I area. * If naloxone or flumazenil are used for reversal, hold in Phase I for continued monitoring from when last reversal dose was given for a minimum of 60 minutes or longer pending the nurse and/or physician discretion of patient condition before discharge to Phase II. Please call the Sedation Physician to re-evaluate and complete post-note for discharge to Phase II area. Do NOT discharge from procedure sedation or Phase 1 until post- sedation evaluation note is complete by procedure /sedation MD Sedation Discharge Instructions to be given to the patient at discharge to [place] [facility] [place]odes ([place]arges) Indication for Procedure Indication for procedure: refractory CP with hx of CAD/stent. Suspected unstable angina Sedation/Anesthesia Procedure 1: Sedation/Anesthesia: 52806 Mod Sedation by the same physician;Init15 Min Child Age 5 & Up (initial 15 min) Total Sedation Time (minutes): 27 Procedure 2: Sedation/Anesthesia: 82860 Mod Sedation by the same physician; Ea [id number] Minutes (additional 12 min) Total Sedation Time (minutes): 27
--- NOTE | 2022-05-17 13:15 | Pre Anesthesia Assessment ---
Date of Service May 17, 2022 Pre Sedation Assessment Vital Signs Temp Pulse Pulse Pulse Resp BP BP 05/17/22 13:00 70 16 124/64 05/17/22 12:50 68 16 124/67 05/17/22 12:35 79 16 141/69 H 05/17/22 10:41 75 18 113/67 05/17/22 10:20 80 134/70 05/17/22 09:03 72 125/71 05/17/22 08:48 36.5 C 70 18 104/62 05/17/22 07:29 118/71 05/17/22 07:29 63 27 H 05/17/22 07:00 81 16 05/17/22 07:00 140/83 05/17/22 06:31 158/86 H 05/17/22 06:31 59 L 24 05/17/22 06:30 76 28 H 05/17/22 06:19 120/81 05/17/22 06:19 73 29 H 05/17/22 06:15 70 20 05/17/22 06:25 69 17 05/17/22 06:15 69 05/17/22 06:02 36.3 C L 72 20 136/73 Pulse Ox O2 Del Method 05/17/22 13:00 98 Room Air 05/17/22 12:50 98 Room Air 05/17/22 12:35 98 Room Air 05/17/22 10:41 94 Room Air 05/17/22 10:20 05/17/22 09:03 05/17/22 08:48 97 Room Air 05/17/22 07:29 05/17/22 07:29 05/17/22 07:00 05/17/22 07:00 05/17/22 06:31 05/17/22 06:31 99 05/17/22 06:30 99 05/17/22 06:19 05/17/22 06:19 05/17/22 06:15 05/17/22 06:25 98 Room Air 05/17/22 06:15 05/17/22 06:02 99 Room Air Cardiovascular RRR, no murmur, no edema Respiratory normal respiratory effort, lungs clear to auscultation Pre-Sedation Airway Assessment Smoking Status: Former smoker Hx Sleep Apnea: No Hx Difficult Intubation: No mallampati II ASA 3 Notes The planned sedation has been discussed with the patient. Informed Consent was obtained. I have identified the patient, determined the appropriateness of sedation and have assessed the patient immediately prior to the procedure. All medicine(s) and interventions are by my order.
--- NOTE | 2022-05-17 13:17 | Cardiac Catheterization ---
[facility] Data: Registered Nurse Cardiac Cardiac Status Clinical evaluation leading to the procedure CAD Presenation: Unstable angina Anginal Classification: CCS IV Heart Failure: No Cardiogenic Shock within 24 Hours: No Cardiac Arrest within 24 Hours: No Imaging Studies Past 6 Months: No Stress Studies Past 6 Months: No Coronary Anatomy Left Main (% Stenosis): Normal LAD (% Stenosis): Ostial (20%), Proximal (Stent patent) and Mid (Mild) D1 (% Stenosis): Normal D2 (% Stenosis): Normal Circumflex (% Stenosis): Normal (Mild) OM1 (% Stenosis): Normal OM2 (% Stenosis): Normal OM3 (% Stenosis): Normal L PL2 (% Stenosis): Normal RCA (% Stenosis): Proximal (Mild 40 to 50%) R PDA (% Stenosis): Normal R PL1 (% Stenosis): Normal Diagnostic Physicians Name: Austin Ross MD, PhD Closure Device Percutaneous Entry Location: Femoral Closure Device: Angio-Seal Recommendations: Medical Therapy and/or Counseling Cardiac Cath Procedure Full Procedure Date May 17, 2022 Pre-Procedure Diagnosis Pre-Procedure Diagnosis: Acute Coronary Syndrome AUC Score AUC Score: 7 Post-Procedure Diagnosis Post-Procedure Diagnosis: Mild CAD and Normal Intracardiac Pressures Procedure(s) Performed Procedure(s) Performed: Coronary Angiography, Left Heart Cath and Ultrasound Guided Vascular Access Bank Compliance Officer Austin Ross MD, PhD Estimated Blood Loss Estimated Blood Loss: 5ml Medication(s) Medication(s): Fentanyl, Lidocaine 1% and Versed Summary of Findings Brief description: Patient was brought to the cardiac catheterization suite where she was shaved and prepped in a sterile fashion. Sedated using IV Versed and fentanyl. Soft tissues of the left groin were anesthetized using 10 mL of 1% Xylocaine. Using the ultrasound for guidance, the left femoral artery was accessed and a 5 [place] femoral artery sheath was placed. All catheters were advanced and exchanged over a 0.035 J-tip wire. Left coronary angiography in orthogonal views with a 5 [place] JL 4 diagnostic catheter. Right coronary angiography in orthogonal views with a 5 [place] JR 5 diagnostic catheter. Left heart cath and left ventriculogram were performed with a 5 [place] pigtail catheter. Diagnostic catheters were removed. Limited left femoral artery angiography was performed to evaluate for closure. Findings were favorable, therefore, the left femoral artery sheath was exchanged for a 6 [place] Angio-Seal closure device. This was deployed in the recommended fashion. We obtained immediate hemostasis and the patient remained hemodynamically stable. She was returned to the recovery area. This ended the case. Coronary angiography and left ventricular angio findings: LMT-a large caliber vessel trifurcating into LAD, ramus, and left circumflex. No angiographically significant disease. LAD-large caliber and transapical. Ostial stenosis less than 20%. Long proximal stent which is widely patent. Provides a large septal branch. Then, there is mild calcific luminal irregularities in the first diagonal is medium in caliber. Mid LAD is without disease. Second diagonal is small. Distal LAD is tortuous and has mild luminal irregularities. RI-large caliber long vessel which branches distally. No more than mild luminal irregularities. LCx-large caliber vessel traveling in the AV groove where there is mild luminal irregularities proximally. Then it provides a large caliber OM1 which is tortuous and has mild scattered plaques. Also provides an atrial branch there are small OM 2 and OM3 branches. Distally the vessel terminates as a small caliber bifurcating PDA. At segment is tortuous and there is no angiographically evident disease. RCA-medium to large caliber dominant vessel. Proximal segment with diffuse irregularities calcification and most severe lesion appearing 40 to 50% narrowed. Mid segment has mild less than 30% stenosis. Distally the vessel bifurcates into a large PDA and a small posterolateral branch. No angiographically significant disease. LVEF: Hyperdynamic with EF 75+ percent. There appears to be obliteration of the left ventricular cavity. Summary: 1. Mild nonocclusive coronary disease as described 2. Patent LAD stent 3. Hyperdynamic LV with probable significant LVH and LV cavity obliteration with systole. 4. Continue guideline directed medical therapy for secondary prevention of coronary artery disease 5. If not already performed, consider additional work-up for possible significant LVH. Hemodynamics Rest Ao:: 132/76 mmHg Final Ao: 134/81 mmHg LV: 142/70 mmHg, LVEDP 15 mmHg Recommendations Recommendations: Medical Therapy and/or Counseling Radiation Exposure (mGy) 215 mGy, fluoroscopy time 7.9 minutes Contrast (mls) 120 Procedural Complication(s) None Disposition Recovery Room\PACU I attest to the content of the Intraoperative Record and any orders documented therein. Any exceptions are noted below. [employer] Card Cath Procedure Codes Cardiac Catheterization Procedure 1: Cardiovascular Cath Procedures: 98878 Coronaries and LHC (+/-LV) Therapeutic Services & Ancillary Procedure 1: Cardiovascular Tx and Anc Procedures: 19001 Ultrasonic Guidance Vascular Access Moderate Sedation Procedure 1: Sedation/Anesthesia: 93412 Mod Sedation by the same physician;Init15 Min Child Age 5 & Up (Initial 15 min (total 27 min)) Procedure 2: Sedation/Anesthesia: 89022 Mod Sedation by the same physician; Ea [id number] Minutes (Additional 12 min (total 27 min)) PG Care Time/CCT Total # of Minutes Spent Total Time Spent with Patient: Total time spent is greater than 50% in coordination of care (as documented) at patient's floor/unit and/or counseling patient:
[2022-05-17] MEDS: dilTIAZem HCL 180 MG CAPCR PO SCH (15:09)
[2022-05-17] MEDS: GABAPENTIN 100 MG CAP PO SCH (20:11)
[2022-05-18 07:12] LABS: Hematocrit (blood only) 37.7 % (37.0-47.0); Hemoglobin 12.9 g/dl (12.0-16.0); Mean Corpuscular Hemoglobin 30.9 pg (25.0-34.0); Mean Corpuscular Hgb Conc 34.2 g/dL (32.0-36.0); Mean Corpuscular Volume 90.4 fL (80.0-100.0); Platelet Count 208 K/uL (130-400); RDW Coefficient of Variation 14.1 % (11.5-14.5); RDW Standard Deviation 46.8 fL (36.4-46.3); Red Blood Count 4.17 M/uL (4.20-5.40); White Blood Count 5.66 K/ul (4.8-10.8)
[2022-05-18 07:41] LABS: BUN Creatinine Ratio 23.3 (10-20); Calcium 9.3 mg/dl (8.5-10.1); Chol HDL Ratio 2.4 (0-5); Creatinine Clr Calc Pharmacy 40.2 ml/min; Est GFR (African American) 77.1 ml/min; Est GFR (Non-African American) 66.6 ml/min; Potassium 4.2 mmol/L (3.5-5.1)
[2022-05-18] MEDS: GABAPENTIN 100 MG CAP PO SCH (08:58)
[2022-05-18] MEDS ORDERED: dilTIAZem HCL 180 MG CAPCR PO SCH (09:00)
[2022-05-18] MEDS ORDERED: ASPIRIN 81 MG ECTAB PO SCH (09:00)
[2022-05-18] MEDS: dilTIAZem HCL 180 MG CAPCR PO SCH (09:01)
--- NOTE | 2022-05-18 10:36 | Cardiology Progress Note ---
Date of Service May 18, 2022 Assessment & Plan (1) Chest pain: (2) Elevated blood sugar: (3) Vasospastic angina: (4) Diastolic dysfunction, left ventricle: (5) Rotator cuff tendonitis: (6) SVT (supraventricular tachycardia): (7) CKD (chronic kidney disease), stage III: (8) CAD (coronary artery disease): (9) Dyslipidemia: (10) Nonadherence to medication: Plan cardiac cath without obstructive disease and patent LAD stent cardizem restarted and no further chest discomfort Continue current medical regimen Okay to discharge to home from a cardiac standpoint Follow-up as an outpatient already scheduled Admission and Anticipated Discharge Date Admission Date: May 17, 2022 Subjective Pt seen and examined. Chart reviewed. Telemetry reviewed. States that she had no further chest discomfort. Review of Systems Review of Systems: All systems reviewed & are unremarkable except as noted in HPI & below Physical Exam Physical Exam: General: Awake, alert and oriented x 3. No acute distress. HEENT: Normocephalic, atraumatic. Pupils equal, round and reactive to light and accommodation. Extraocular muscles are intact. Anicteric sclera. Moist mucous membranes. Neck: No JVD. No bruit. Cardiovascular: Regular. Positive S-4. Normal S-1 and S-2. No S-3. No murmurs or rubs. Pulmonary: Clear to auscultation B/L. No rales, rhonchi or wheezing Abdomen: Bowel sounds x 4, soft. No rebound, guarding or tenderness. No organomegaly. Extremities: No clubbing, cyanosis or edema. +2 pedal pulses bilaterally. Skin: Warm and dry. Results & Data ([facility]) Vital Signs (Past 12 Hours) Vital Signs Temp Pulse Pulse Resp BP Pulse Ox O2 Del Method 05/18/22 07:24 67 05/18/22 07:20 36.6 C 73 20 104/62 98 Room Air 05/18/22 03:24 37.1 C 68 16 115/68 98 Room Air 05/17/22 23:31 68 (8) CAD (coronary artery disease) Associated angina: with angina and documented spasm Coronary Disease- Associated Artery/Lesion type: [place] artery [place] vs. transplanted heart: [place] heart Qualified Code(s): I25.111 - Atherosclerotic heart disease of [place] coronary artery with angina pectoris with documented spasm
--- NOTE | 2022-05-18 11:25 | Electrocardiogram Report ---
Test Reason : Blood Pressure : / mmHG Vent. Rate : 060 BPM Atrial Rate : 060 BPM P-R Int : 144 ms QRS Dur : 080 ms QT Int : 398 ms P-R-T Axes : 076 051 032 degrees QTc Int : 398 ms Normal sinus rhythm Normal ECG When compared with ECG of 17-MAY-2022 09:44, Nonspecific T wave abnormality no longer evident in Anterior leads Confirmed by David Cornell ([id number]) on 05/18/2022 11:24:53 AM Referred By: REFERRED SELF Confirmed By:Aayush Cornell
--- NOTE | 2022-05-21 17:53 | Discharge Summary ---
Discharge Summary Date of Service May 21, 2022 Admission HPI Per Admitting Provider Ms. Paz is a 72 year old female that presented to the [facility] with chest pain that woke her from her sleep at 0400 this morning and lasted until she was in the ED. The chest pain affected her right side of her chest and was associated with some SOB. She reports her chest pain that ranges 4-8/10. She did take SL Nitro at home without relief. She does have a prescription for Sublingual Nitro but has not used in over a year prior to today. Nitro in the ED provided relief when she was admitted into her hospital room. Patient has a history of Prinzmetal angina. ASA administered in ED. She did have a stent placed s/p PCI to her LAD in 2018. Cardiac catheterization was performed in 2019 with 20-0% occlusion in ostial LAD and RCA without further intervention. In review of EMR: Cardiac catheterization report summary May 24, 2018: Catheterization performed secondary to abnormal stress test suggesting basal inferior ischemia. 20 to 30% ostial LAD Patent LAD stent 20 to 30% proximal RCA No evidence of vasospasm Cardiac catheterization February 07, 2018 report summary: Ostial LAD vasospasm resolved with IC nitroglycerin Patent proximal LAD stent. 40% proximal RCA - possibly spasm Elevated left ventricular end-diastolic pressure: 19mmHg Pt states that before she had her stent placed in 2018. She was at the [facility] and experienced a syncope with collapse which led to pericardial nodule removal which was biopsied and was non-malignant. Additionally, per review of her EMR chart, she had SVT and underwent ablation in [facility]. Additional PMH includes Raynauds Disease (Follows with Rheumatology), HLD with statin intolerance, SVT s/p ablation, OA, and celiac disease. At baseline, she is quite active, walking 5 miles daily. Patient is ordered Diltiazem and Aspirin, but she reports not taking them. She thought that The Praluent injections she was taking would 'take care of it'. Currently, patient reports her chest pain 4/10. Pt denies BAILEY, dizziness, N/V/D, palpitations, abdominal pain, constipation, fever and chills at home. Patient denies alcohol, tobacco products or recreational drug use. She is NPO and has not eaten since last evening. I sent Dr. Kay a tiger text to inform him of her admission for evaluation. After he saw her, plan was to pr oceed with PCI in labeling machine operator. Patient will be admitted to PCU for further evaluation and management. Please see A/P for further details. Principal Dx & Hospital Course #1 = Principal Diagnosis Updated Medication List Medication Instructions Recorded Confirmed Type aspirin 81 mg tablet,delayed 81 mg PO QAM 05/23/18 05/17/22 History release (Aspir-) nitroglycerin 400 mcg/spray 0.4 mg sublingual Q5M #4.1 grams 06/29/18 05/17/22 Rx translingual aerosol alirocumab 150 mg/mL subcutaneous See Rx Instructions .Route .COMPLEX 12/22/21 05/17/22 History pen injector (Praluent Pen) tramadol 50 mg tablet 50 mg PO Q6H PRN pain #20 tabs 12/22/21 05/17/22 Rx diltiazem HCl 180 mg 180 mg PO QAM #30 caps 05/18/22 Rx capsule,extended release 24 hr Hospital Stay Data Consultations 05/17/22 07:31 ED Decision to Admit Stat 05/17/22 08:28 Consult Cardiology Routine 05/17/22 11:06 Consult Cardiac Catheterization Routine Procedures Performed Operation Date: 05/17/22 11:30 Actual Procedures p Cineradiography w/Routine Exam - Austin Ross MD, PhD p Cath, Left with Cors and Vent - Austin Ross MD, PhD s Ultrasound Vascular Access - Austin Ross MD, PhD Diagnostic Imagining Performed 05/17/22 11:45 CL Cath Imgs for PACS use only Urgent Pending Results Patient Have Any Pending Studies at Discharge: No Discharge Instructions Given to Patient (Per Discharging Provider) Please take all medications as instructed on discharge list below. As we discussed, it is important to continue taking your baby aspirin every day. You are being prescribed DILTIAZEM 180mg to take once daily. This is to treat presumed cardiac vasospasms, which is thought to have been the reason for your chest discomfort. Please follow-up wtih your primary care provider and electrical and instrumentation mechanic on the dates and times listed. It was a pleasure taking care of you! Please call if you have any questions or problems. You can reach a [facility] hospitalist on duty at [facility] 24 hours a day by calling [phone]. Take care of yourself. Ely Lino DO [facility]
== END 2022-05-18 13:51 | disposition home or self-care (01) ==
LOC: ED 06:01 → 2N 06:01 → 2E 14:01

== ENCOUNTER 2022-08-10 14:05 | Observation (INO) ==
--- NOTE | 2022-08-10 14:21 | Emergency Department Note ---
Impression & Plan Chest pain ADMIT ED Provider Note HPI: The patient is a 72-year-old female with history of coronary artery disease, status post stent many years ago at an outside hospital, presents emergency department with a chief complaint of chest pain. Patient states that approxi mately 1 hour prior to arrival to the ED she developed a sensation of substernal chest discomfort. Patient states at the time the pain was relatively severe. Patient states that she took 1 sublingual nitroglycerin and did not have relief of her pain and therefore came to the hospital to be assessed. On arrival patient states her pain is much improved from previous but she still does have some mild substernal chest discomfort. On arrival here to the ED the patient is hemodynamically stable, she is in no acute distress on my initial evaluation. ROS: - Per HPI *Outpatient medications and allergy history reviewed. *Pertinent external medical records reviewed. PE: General: Alert HEENT: Normocephalic, trachea midline Eyes: Extraocular eye movement is intact, no scleral erythema Pulmonary: Clear to auscultation bilaterally, no wheezing Cardio: Regular rate and rhythm GI: Abdomen is soft to palpation : No suprapubic tenderness MSK: No evidence of trauma or malformation of the extremities, no edema Skin: No evidence of rash Neuro: Alert, no focal deficits Psychiatric: Cooperative wildlife and game protector: (As interpreted by myself): - An order was placed for continuous cardiac monitoring - Patient was noted to be in sinus rhythm with a rate of 65 EKG: (As interpreted by myself): Rate: 61 Rhythm: Sinus rhythm Intervals: Within normal limits ST changes: No ST elevation Time: 14:11 Interventions provided in ED: -Aspirin Differential Diagnosis: Acute coronary syndrome, pneumothorax, pleuritis, pericarditis, pulmonary embolism, aortic dissection, amongst other potential pathologies. Medical Decision Making: The patient is a 72-year-old female with history of coronary artery disease, presents emergency department the chief complaint of substernal chest disco mfort. Patient states that this pain started shortly prior to arrival to the ED. It has subsided for the most part on arrival however she still does have some mild discomfort. On arrival here to the ED the patient is hemodynamically stable. IV established and lab work obtained, patient was placed on microstrategy developer, EKG does not show any evidence of ST elevation, initial troponin is negative. Chest x-ray does not show any obvious acute abnormalities, previous pulmonary nodule noted. Patient advised for CT scan of the chest for follow-up in regards to this. Patient's lab work is otherwise largely unremarkable, on my reassessment patient states she still has some mild discomfort. She was given aspirin. She declined analgesia. Given the patient's history of coronary artery disease with ongoing chest discomfort, decision was made for admission. Case was discussed with the on-call admitting midlevel provider for [facility] and the patient was placed for admission in stable condition. Consultants: Hospitalist service, [facility] Disposition discussion held by myself with: Patient Diagnosis: 1. chest pain, acute 2. History of coronary artery disease status post stent 3. Nodular density on chest x-ray, nonspecific Disposition: Admission Drew De Paz DO Emergency Medicine Past Med/Surg History Medical History CAD (coronary artery disease) Celiac disease CKD (chronic kidney disease), stage III Coronary vasospasm Dyslipidemia History of claustrophobia Hyperlipidemia Migraine Occipital neuralgia Osteoporosis Poor historian Raynaud's disease SVT (supraventricular tachycardia) Surgical History H/O heart artery stent History of cardiac cath History of cardiac radiofrequency ablation History of cholecystectomy History of tonsillectomy Hx of colonoscopy Family History Mother Coronary heart disease Social History Smoking Status: Former smoker Tobacco Type: Cigarettes Second Hand Exposure: No; Do You Dip or Chew Tobacco: No; Hx Alcohol Use: No Hx Substance Use: No Preferred Language: Estonian Communication Ability: Effective Smoking Pipes Cleaner Required: No Beliefs That Will Affect Care: None Current Living Situation: Alone and Spouse Feels Safe at Home: Yes Assistive Devices: None Allergies Allergies Allergy/AdvReac Type Severity Reaction Status Date / Time Penicillins Allergy Severe Tongue Verified 08/10/22 15:06 swelling gluten Allergy Intermediate Gastrointestinal Verified 08/10/22 15:06 Upset codeine AdvReac Intermediate Increased Verified 08/10/22 15:06 pain morphine AdvReac Intermediate Hypotension Verified 08/10/22 15:06 oxycodone AdvReac Intermediate Hallucinati Verified 08/10/22 15:06 ons/Confusi on Home Meds Home Medications Medication Instructions Recorded Confirmed alirocumab 150 mg/mL subcutaneous See Rx Instructions .Route .COMPLEX 12/22/21 08/10/22 pen injector (Praluent Pen) aspirin 81 mg tablet,delayed 81 mg PO DAILY 08/10/22 08/10/22 release cyclobenzaprine 5 mg tablet 5 mg PO HS PRN MUSCLE SPASMS 08/10/22 08/10/22 diltiazem HCl 120 mg tablet 120 mg PO QAM 08/10/22 08/10/22 gabapentin 100 mg capsule 100 mg PO DIRECTED 08/10/22 08/10/22 nitroglycerin 400 mcg/spray 0.4 mg sublingual Q5M PRN Chest 08/10/22 08/10/22 translingual aerosol Pain Results & Data (ED) Vital Signs Vital Signs - 24 hr 08/10/22 14:18 08/10/22 14:21 08/10/22 14:21 Temperature 36.4 C Temperature Source Oral Pulse Rate 59 L 60 Pulse Rate [Apical] Respiratory Rate 20 Respiratory Effort / Characteristics Non-Labored Spontaneous Respiratory Depth Normal Respiratory Pattern Regular Blood Pressure 113/60 Blood Pressure [Right Arm] Blood Pressure Mean 77 Blood Pressure Mean [Right Arm] Blood Pressure Position Lying Blood Pressure Position [Right Arm] Pulse Oximetry 98 98 Oxygen Delivery Method Room Air Room Air Sepsis Recent Fever Within 48 Hours No Sepsis New/Unexplained Change in Mental Status No Sepsis Action Taken by Nursing No Action Required 08/10/22 14:31 Temperature 36.4 C Temperature Source Oral Pulse Rate Pulse Rate [Apical] 60 Respiratory Rate 20 Respiratory Effort / Characteristics Non-Labored Spontaneous Respiratory Depth Normal Respiratory Pattern Regular Blood Pressure Blood Pressure [Right Arm] 113/60 Blood Pressure Mean Blood Pressure Mean [Right Arm] 77 Blood Pressure Position Blood Pressure Position [Right Arm] Lying Pulse Oximetry 98 Oxygen Delivery Method Room Air Sepsis Recent Fever Within 48 Hours Sepsis New/Unexplained Change in Mental Status Sepsis Action Taken by Nursing Laboratory Data 08/10/22 14:18 08/10/22 14:18 Lab Results 08/10/22 08/10/22 08/10/22 Range/Units 14:18 14:18 14:18 WBC 7.07 (4.8-10.8) K/ul RBC 4.20 (4.20-5.40) M/uL Hgb 13.0 (12.0-16.0) g/dl Hct 39.6 (37.0-47.0) % MCV 94.3 (80.0-100.0) fL MCH 31.0 (25.0-34.0) pg MCHC 32.8 (32.0-36.0) g/dL RDW Std Deviation 46.4 H (36.4-46.3) fL RDW Coeff of Lionel 13.5 (11.5-14.5) % Plt Count 230 (130-400) K/uL MPV 9.2 L (9.4-12.4) fL Immature Gran % (Auto) 0.1 % Neut % (Auto) 65.9 % Lymph % (Auto) 23.5 % [place] % (Auto) 8.1 % Eos % (Auto) 1.6 % Baso % (Auto) 0.8 % Neut # (Auto) 4.66 (1.40-6.50) K/uL Lymph # (Auto) 1.66 (1.2-3.4) K/uL [place] # (Auto) 0.57 (0.11-0.59) K/uL Eos # (Auto) 0.11 (0-0.50) K/uL Baso # (Auto) 0.06 (0-0.2) K/uL Immature Gran # (Auto) 0.01 (0.01-0.20) K/uL PT 11.3 (9.0-12.0) Seconds INR 1.0 (0.9-1.1) Sodium 139 (136-145) mmol/L Potassium 4.1 (3.5-5.1) mmol/L Chloride 108 H (98-107) mmol/L Carbon Dioxide 24 (21-32) mmol/L Anion Gap 7 (3-11) BUN 23 (6-23) mg/dl Creatinine 0.95 (0.6-1.2) mg/dl Est Cr Clr Drug Dosing 41.1 ml/min Est GFR ( Amer) 68.4 ml/min Est GFR (Non-Af Amer) 59.0 ml/min BUN/Creatinine Ratio 24.2 H (10-20) Glucose 106 H (70-99(Fasting)) mg/dl Calcium 9.2 (8.6-10.3) mg/dl Total Bilirubin 0.4 (0.2-1.0) mg/dl AST 25 (13-39) U/L ALT 12 (7-52) U/L Alkaline Phosphatase 38 (34-104) U/L Troponin I High Sens 2.8 (0-14) pg/ml Total Protein 7.3 (6.0-8.3) gm/dl Albumin 3.8 (3.4-5.0) gm/dl Globulin 3.5 (2.5-4.0) gm/dl Albumin/Globulin Ratio 1.1 (0.9-2) Lipase 22 (11-82) U/L Administered Medications Discontinued Medications Aspirin (Aspirin Chew 324 Mg) 324 mg PO NOW STA Stop: 08/10/22 15:06 Last Admin: 08/10/22 15:12 Dose: 324 mg Documented By: JORDAN Imaging Data Radiologist's Impression: Chest X-Ray 08/10/22 14:15 XR chest 1V portable HISTORY: Chest pain, nonspecific COMPARISON: Chest 05/17/2022. FINDINGS: No pneumothorax. No pleural effusions. The cardiac silhouette remains normal in size. No new focal lung consolidations to suggest a pneumonia. No evidence for pulmonary edema. Questionable 1 cm nodular density within the right upper lobe again noted. IMPRESSION: 1. No acute process within the chest. 2. Questionable 1 cm nodular density within the right upper lobe is again noted. Consider follow-up nonemergent chest CT for further evaluation. ACT 112: Positive. There are findings on this exam that require communication between the performing entity and the patient following Patient Test Result Information Act ([place] Act 112) guidelines. Electronically signed by: Maximiliano Wells M.D. 08/10/2022 2:30 PM Discharge Plan Visit Data Chief Complaint: Chest Pain Stated Complaint: CHEST PAIN ED Provider: Drew De Paz Discharge Problem: Chest pain Forms Stand Alone Forms: My [employer] Prescriptions Prescriptions: No Action Praluent Pen 150 mg/mL pen injector See Rx Instructions .ROUTE .COMPLEX Rx Instructions: Pt unsure of dose. Takes twice a month. aspirin 81 mg Tablet,Delayed Release (Dr/Ec) 81 mg PO DAILY diltiazem HCl 120 mg tablet 120 mg PO QAM gabapentin 100 mg capsule 100 mg PO DIRECTED Rx Instructions: FILLED 08/04/22 FOR 30 DAYS/60 TABS. ON EXT MED HX--PT DID NOT MENTION THIS MED. cyclobenzaprine 5 mg tablet 5 mg PO HS PRN (Reason: MUSCLE SPASMS) nitroglycerin 400 mcg/spray aerosol,spray 0.4 mg sublingual Q5M PRN (Reason: Chest Pain) Rx Instructions: UP TO 3 SPRAYS IN 15 MINS CALL 911 FOR ONGOING CHEST PAIN Referrals Referrals: Linette Harry DO [Primary Care Provider] - Chest pain Qualifiers: Chest pain type: unspecified Qualified Code(s): R07.9 - Chest pain, unspecified
[2022-08-10 14:31] LABS: Basophils # (auto) 0.06 K/uL (0-0.2); Basophils % (auto) 0.8 %; Eosinophils # (auto) 0.11 K/uL (0-0.50); Eosinophils % (auto) 1.6 %; Hematocrit (blood only) 39.6 % (37.0-47.0); Immature Granulocytes # (auto) 0.01 K/uL (0.01-0.20); Immature Granulocytes % (auto) 0.1 %; Lymphocytes # (auto) 1.66 K/uL (1.2-3.4); Lymphocytes % (auto) 23.5 %; Mean Corpuscular Hgb Conc 32.8 g/dL (32.0-36.0); Mean Corpuscular Volume 94.3 fL (80.0-100.0); Mean Platelet Volume 9.2 fL (9.4-12.4); Monocytes # (auto) 0.57 K/uL (0.11-0.59); Monocytes % (auto) 8.1 %; Neutrophils # (auto) 4.66 K/uL (1.40-6.50); Neutrophils % (auto) 65.9 %; Platelet Count 230 K/uL (130-400); RDW Coefficient of Variation 13.5 % (11.5-14.5); RDW Standard Deviation 46.4 fL (36.4-46.3); White Blood Count 7.07 K/ul (4.8-10.8)
--- NOTE | 2022-08-10 14:32 | XRay Report ---
XR chest 1V portable HISTORY: Chest pain, nonspecific COMPARISON: Chest 05/17/2022. FINDINGS: No pneumothorax. No pleural effusions. The cardiac silhouette remains normal in size. No ne w focal lung consolidations to suggest a pneumonia. No evidence for pulmonary edema. Questionable 1 c m nodular density within the right upper lobe again noted. IMPRESSION: 1. No acute process within the chest. 2. Questionable 1 cm nodular density within the right upper lobe is again noted. Consider follow-up n onemergent chest CT for further evaluation. ACT 112: Positive. There are findings on this exam that require communication between the performing entity and the patient following Patient Test Result Information Act ([place] Act 112) guidelines. Electronically signed by: Maximiliano Wells M.D. 08/10/2022 2:30 PM
[2022-08-10 14:47] LABS: Albumin Globulin Ratio 1.1 (0.9-2); Albumin Level 3.8 gm/dl (3.4-5.0); BUN Creatinine Ratio 24.2 (10-20); Bilirubin,Total 0.4 mg/dl (0.2-1.0); Calcium 9.2 mg/dl (8.6-10.3); Creatinine Clr Calc Pharmacy 41.1 ml/min; Est GFR (African American) 68.4 ml/min; Globulin 3.5 gm/dl (2.5-4.0); Potassium 4.1 mmol/L (3.5-5.1); Total Protein 7.3 gm/dl (6.0-8.3)
[2022-08-10 14:53] LABS: Troponin I High Sensitivity 2.8 pg/ml (0-14)
[2022-08-10 14:56] LABS: Prothrombin Time 11.3 Seconds (9.0-12.0)
[2022-08-10] MEDS ORDERED: ASPIRIN CHEW 324 MG PO STA (15:05)
--- NOTE | 2022-08-10 15:05 | Electrocardiogram Report ---
Test Reason : Blood Pressure : / mmHG Vent. Rate : 061 BPM Atrial Rate : 061 BPM P-R Int : 112 ms QRS Dur : 074 ms QT Int : 406 ms P-R-T Axes : 064 004 002 degrees QTc Int : 408 ms Sinus rhythm with Premature atrial complexes Possible Left atrial enlargement Nonspecific ST abnormality Abnormal ECG When compared with ECG of 18-MAY-2022 05:43, Premature atrial complexes are now Present Nonspecific T wave abnormality now evident in Inferior leads Nonspecific T wave abnormality now evident in Anterior leads Confirmed by David Cornell ([id number]) on 08/10/2022 3:05:15 PM Referred By: Confirmed By:Aayush Cornell
--- NOTE | 2022-08-10 15:30 | History & Physical Report ---
Date of Service August 10, 2022 Assessment & Plan (1) Chest pain: (2) CAD (coronary artery disease): (3) Dyslipidemia: (4) H/O prior ablation treatment: (5) SVT (supraventricular tachycardia): Plan: - Admit to tele for observation for r/o - Trend cardiac biomarkers, initial set was negative - EKG reviewed as above - Check 2 D echo - If negative enzymes can consider a stress test tomorrow morning. - PT/OT consulted - Cardiology consultation - Follows routinely with Dr. Echevarria. - Pt reports does not want morphine for pain relief as she doesn't tolerate this well. Will continue tylenol for headache prn - Allow nitro po prn DVT PPx: - teds, scds, heparin subq CODE: Full code Dispo: From home, likely to remain in the hospital x 1-2 days A total of 75 minutes were spent with greater than 50% of that time face to face with the patient, personally reviewing all current laboratories, imaging studies, past medication reconciliation, outpatient chart review, and discussion with specialists to collaborate care for the patient with attending. Please see attending documentation for corrections and/or additions. History of Present Illness Chief Complaint: Chest pain Primary Care Provider: Linette Harry, This is a 72-year-old female with PMHx of CAD with history of LAD stent which wa s placed in 2018. At that time she was at the [facility] and experienced syncope with collapse which led to pericardial nodule removal which was biopsied and was found to be non-malignant, history of SVT and underweight ablation in [facility]. Other past medical history includes Raynaud's disease, HLD, osteoarthritis and celiac disease. Pt presents here today after experiencing an episode of chest pain which was substernal and quite severe in nature which occurredshortly after walking up and down two flights of stairs, and after she had taken her normal daily 5 mile walk this morning. She took a total of 2 nitro tablets prior to the ambulance arrival at her home, however it did not provide any pain relief. By the time she arrived to the ER and approximately 1 hour later her pain is improved however still present, calling is a dull ache. She was administered 324 mg of aspirin here. Of note she mentions a migrain history, and has been having headache which migrates in the area of her head over the past 2-3 weeks. Pt only ever takes a tylenol 250 mg at bedtime for this to help her sleep. She is a very physically active person and does not typically get chest pain with any ADLs or walking. Pt can complete the 5 mile walk within about 1 hr 20 minutes = 16 min/mile. Her friend Ruth, and significant other, Tito (whom she lives with) are present at bedside and support the history. Pt has taken all her morning medications, and is compliant. Allergies Allergy/AdvReac Type Severity Reaction Status Date / Time Penicillins Allergy Severe Tongue Verified 08/10/22 15:06 swelling gluten Allergy Intermediate Gastrointestinal Verified 08/10/22 15:06 Upset codeine AdvReac Intermediate Increased Verified 08/10/22 15:06 pain morphine AdvReac Intermediate Hypotension Verified 08/10/22 15:06 oxycodone AdvReac Intermediate Hallucinati Verified 08/10/22 15:06 ons/Confusi on Home Medications Medication Instructions Recorded Confirmed Type alirocumab 150 mg/mL subcutaneous See Rx Instructions .Route .COMPLEX 12/22/21 08/10/22 History pen injector (Praluent Pen) aspirin 81 mg tablet,delayed 81 mg PO DAILY 08/10/22 08/10/22 History release cyclobenzaprine 5 mg tablet 5 mg PO HS PRN MUSCLE SPASMS 08/10/22 08/10/22 History diltiazem HCl 120 mg tablet 120 mg PO QAM 08/10/22 08/10/22 History gabapentin 100 mg capsule 100 mg PO DIRECTED 08/10/22 08/10/22 History nitroglycerin 400 mcg/spray 0.4 mg sublingual Q5M PRN Chest 08/10/22 08/10/22 History translingual aerosol Pain Past Med/Surg History Medical History CAD (coronary artery disease) Celiac disease CKD (chronic kidney disease), stage III Coronary vasospasm Dyslipidemia History of claustrophobia Hyperlipidemia Migraine Occipital neuralgia Osteoporosis Poor historian Raynaud's disease SVT (supraventricular tachycardia) Surgical History H/O heart artery stent History of cardiac cath History of cardiac radiofrequency ablation History of cholecystectomy History of tonsillectomy Hx of colonoscopy Family History Mother Coronary heart disease Social History Smoking Status: Former smoker Tobacco Type: Cigarettes Second Hand Exposure: No; Do You Dip or Chew Tobacco: No; Hx Alcohol Use: No Hx Substance Use: No Preferred Language: Khmer Communication Ability: Effective Finisher Screwdown Required: No Beliefs That Will Affect Care: None Current Living Situation: Alone and Spouse Feels Safe at Home: Yes Assistive Devices: None Review of Systems Review of Systems: Constitutional: No fever, sweats or chills Eyes: No diplopia, no worsening or blurred vision ENT: normal hearing, no trouble swallowing Respiratory: No cough, sputum, dyspnea at rest or on exertion Cardiovascular:As per HPI, currently a dull ache in her chest, no tightness or palpitations Abdomen: No pain, nausea, vomiting, diarrhea or constipation Musculoskeletal: No joint pain, calf pain, swelling Neurologic: No weakness, numbness/tingling, or balance problems Psychiatric: No anxiety or depression Skin: No rash or itch Physical Exam Physical Exam: General: awake, alert, no apparent distress, + thin Head: Normocephalic, atraumatic ENT: PERRL, EOMI, no pharyngeal exudate, mucous membranes moist Chest: Clear to auscultation, on room air, no adventitious breath sounds Cardiac: Regular rate and rhythm, +faint systolic murmur louder at the R sternal border, no JVD, normal peripheral pulses, good capillary refill Abdominal: NABS x 4 quadrants, soft, nondistended, nontender to palpation, no rebound or guarding Extremities: Normal inspection, no peripheral edema or erythema, calfs nontender to palpation Psych: Normal mood and affect Neuro: AAO x 3, strength intact bilaterally and rated 5/5, no motor deficits, speech is clear, no peripheral sensory deficits Results & Data Results & Data Vital Signs (Past 12 Hours) Vital Signs Temp Pulse Pulse Resp BP BP Pulse Ox 08/10/22 14:31 36.4 C 60 20 113/60 98 08/10/22 14:21 98 08/10/22 14:21 36.4 C 60 20 113/60 98 08/10/22 14:18 59 L O2 Del Method 08/10/22 14:31 Room Air 08/10/22 14:21 Room Air 08/10/22 14:21 Room Air 08/10/22 14:18 Laboratory Results 08/10/22 08/10/22 08/10/22 14:18 14:18 14:18 WBC 7.07 RBC 4.20 Hgb 13.0 Hct 39.6 MCV 94.3 MCH 31.0 MCHC 32.8 RDW Std Deviation 46.4 H RDW Coeff of Lionel 13.5 Plt Count 230 MPV 9.2 L Immature Gran % (Auto) 0.1 Neut % (Auto) 65.9 Lymph % (Auto) 23.5 [place] % (Auto) 8.1 Eos % (Auto) 1.6 Baso % (Auto) 0.8 Neut # (Auto) 4.66 Lymph # (Auto) 1.66 [place] # (Auto) 0.57 Eos # (Auto) 0.11 Baso # (Auto) 0.06 Immature Gran # (Auto) 0.01 PT 11.3 INR 1.0 Sodium 139 Potassium 4.1 Chloride 108 H Carbon Dioxide 24 Anion Gap 7 BUN 23 Creatinine 0.95 Est Cr Clr Drug Dosing 41.1 Est GFR ( Amer) 68.4 Est GFR (Non-Af Amer) 59.0 BUN/Creatinine Ratio 24.2 H Glucose 106 H Calcium 9.2 Total Bilirubin 0.4 AST 25 ALT 12 Alkaline Phosphatase 38 Troponin I High Sens 2.8 Total Protein 7.3 Albumin 3.8 Globulin 3.5 Albumin/Globulin Ratio 1.1 Lipase 22 Diagnostic Findings Chest X-Ray 08/10/22 14:15 XR chest 1V portable HISTORY: Chest pain, nonspecific COMPARISON: Chest 05/17/2022. FINDINGS: No pneumothorax. No pleural effusions. The cardiac silhouette remains normal in size. No new focal lung consolidations to suggest a pneumonia. No evidence for pulmonary edema. Questionable 1 cm nodular density within the right upper lobe again noted. IMPRESSION: 1. No acute process within the chest. 2. Questionable 1 cm nodular density within the right upper lobe is again noted. Consider follow-up nonemergent chest CT for further evaluation. ACT 112: Positive. There are findings on this exam that require communication between the performing entity and the patient following Patient Test Result Information Act ([place] Act 112) guidelines. Electronically signed by: Maximiliano Wells M.D. 08/10/2022 2:30 PM ECG Additional Comments: Test Reason : Blood Pressure : / mmHG Vent. Rate : 061 BPM Atrial Rate : 061 BPM P-R Int : 112 ms QRS Dur : 074 ms QT Int : 406 ms P-R-T Axes : 064 004 002 degrees QTc Int : 408 ms Sinus rhythm with Premature atrial complexes Possible Left atrial enlargement Nonspecific ST abnormality Abnormal ECG When compared with ECG of 18-MAY-2022 05:43, Premature atrial complexes are now Present Nonspecific T wave abnormality now evident in Inferior leads Nonspecific T wave abnormality now evident in Anterior leads Confirmed by David Cornell ([id number]) on 08/10/2022 3:05:15 PM Code Status & VTE Plan Code Status Full code - discussed with pt at bedside Supervising Physician Co-Signing Physician Notes Pt seen and examined by myself, Isabell Seo MD on the day of service. Care was coordinated with Stacy Love PA-C. Please refer to her note for additional information. 72yo female with signifcant CAD Hx presenting with chest pain. Was recently admitted for the same. EKG and troponins (1) Chest pain Chest pain type: unspecified Qualified Code(s): R07.9 - Chest pain, unspecified (2) CAD (coronary artery disease) Associated angina: with angina and documented spasm Coronary Disease- Associated Artery/Lesion type: [place] artery [place] vs. transplanted heart: [place] heart Qualified Code(s): I25.111 - Atherosclerotic heart disease of [place] coronary artery with angina pectoris with documented spasm
[2022-08-10] MEDS ORDERED: CYCLOBENZAPRINE HCL 5 MG TAB PO PRN (21:21)
[2022-08-10] MEDS ORDERED: ONDANSETRON INJ 2 MG/ML 2 ML VIAL IV PRN (21:21)
[2022-08-10] MEDS ORDERED: NITROGLYCERIN SL 0.4 MG/TAB TAB SL PRN (21:21)
[2022-08-10] MEDS ORDERED: ACETAMINOPHEN 325 MG TAB PO PRN (21:21)
[2022-08-10] MEDS ORDERED: PNEUMOCOCCAL POLYSACCHARIDES 25 MCG/0.5 ML VIAL/SYR IM ONE (21:51)
[2022-08-10] MEDS: HEPARIN SOD 5,000 UNIT/0.5 ML VIAL SQ SCH (21:55)
[2022-08-11 03:53] LABS: Hemoglobin 12.9 g/dl (12.0-16.0); Mean Corpuscular Hemoglobin 31.8 pg (25.0-34.0); Mean Corpuscular Hgb Conc 33.9 g/dL (32.0-36.0); Mean Corpuscular Volume 93.6 fL (80.0-100.0); Mean Platelet Volume 9.3 fL (9.4-12.4); Platelet Count 214 K/uL (130-400); RDW Coefficient of Variation 13.7 % (11.5-14.5); RDW Standard Deviation 47.1 fL (36.4-46.3); Red Blood Count 4.06 M/uL (4.20-5.40); White Blood Count 5.89 K/ul (4.8-10.8)
[2022-08-11 04:08] LABS: BUN Creatinine Ratio 24.5 (10-20); Calcium 8.8 mg/dl (8.6-10.3); Chol HDL Ratio 2.7 (0-5); Creatinine Clr Calc Pharmacy 34.9 ml/min; Est GFR (African American) 65.9 ml/min; Est GFR (Non-African American) 56.8 ml/min; Magnesium 1.9 mg/dl (1.7-2.4)
[2022-08-11 08:12] LABS: Estimated Average Glucose 111 mg/dl; Hemoglobin A1C 5.5 % (4.5-5.6)
[2022-08-11] MEDS: HEPARIN SOD 5,000 UNIT/0.5 ML VIAL SQ SCH (08:19)
--- NOTE | 2022-08-11 08:41 | Cardiology Consultation ---
Date of Consultation August 11, 2022 Assessment & Plan (1) Chest pain: (2) Vasospastic angina: (3) CAD (coronary artery disease): (4) Raynaud's disease: Plan IMPRESSION: 72-year-old female with history of coronary artery disease status post PCI in 2018, vasospastic angina, and Raynaud's disease-presented to the emergency department due to exertional chest discomfort. Most recent cardiac catheterization for similar symptoms dated 05/2022 with patent LAD stent and nonobstructive disease elsewhere-previously on diltiazem with poor tolerance noting fatigue. Echo revealing a hyperdynamic LV systolic function with no wall motion abnormalities. PLAN: Patient n.p.o. for exercise stress echo. Given hyperdynamic LV systolic function we will start low-dose beta-phoenix 12.5 mg daily-patient does mention fatigue at higher doses in the past but willing to retry. Start amlodipine 5 mg daily for vasospasm/angina relief. She also carries a history of Raynaud's-this medication is also indicated for relief in symptoms. Continue aspirin 81 mg daily Patient on Praluent for dyslipidemia as an outpatient-continue. Case discussed with Dr. Paiz. Further recommendations pending the results to stress testing. Supervising Physician Co-Signing Physician Notes Patient seen and personally examined. Recommendations and findings as above. No signs of myocardial injury or ischemia by EKG or enzyme. Recent cardiac catheterization April 2022 with moderate luminal irregularities but no obstructive disease, patent stent Stress echocardiography ordered to aid in future management Medication adjustments as above History of Present Illness Reason for Consultation: Chest pain. Vasospastic angina Requesting Physician: Alicia capone Attending Physician: Luis Carlos King MD History of Present Illness 72-year-old female who initially presented to [facility] emergency department due to an episode of exertional chest discomfort that did not relieved with sublingual nitroglycerin. Pain occurred in the setting of walking up a flight of steps. Symptoms were similar to her prior hospital admission in May 2022. Patient carries a history of coronary disease undergoing PCI in 2018 to her LAD, most recent hospital admission in April 2022 due to chest pain status post cardiac cath revealing a patent LAD stent and otherwise nonobstructive CAD. Patient diagnosed with Prinzmetal angina. Discharged home on diltiazem 180 mg daily. Was seen by Dr. Harry on 05/24/2022 feeling well without return of symptoms. However, patient noted noncompliance with diltiazem due to side effects. Diltiazem was reduced to 120 mg daily. High-sensitivity troponin negative x3 EKG showing normal sinus rhythm, 65 bpm without any acute ST segment changes Echocardiogram: Hyperdynamic LVEF, 65 to 70% with normal wall motion. Mild concentric LVH Telemetry: SR 60-80s PACs Upon entrance into the room patient resting comfortably in the chair- no further episodes of chest pain. Gordo any shortness of breath or palpitations. No lightheadedness. Normally very active at home- enjoys walking. Denies any exertional chest pain with this activity on a daily basis. Notes intolerance to diltiazem due to fatigue/lethargy. 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 Harry Past medical history: Coronary artery disease, status post LAD PCI 2018 Prinzmetal angina-cardiac catheterization dated 04/2022 demonstrated patent LAD stent and otherwise nonobstructive CAD Chronic diastolic CHF Hypertension Raynaud's Dyslipidemia History of SVT status post ablation, [facility] Former heavy tobacco use Bilateral lower extremity varicosities Family history of premature CAD Allergies Allergy/AdvReac Type Severity Reaction Status Date / Time Penicillins Allergy Severe Tongue Verified 08/10/22 15:06 swelling gluten Allergy Intermediate Gastrointestinal Verified 08/10/22 15:06 Upset codeine AdvReac Intermediate Increased Verified 08/10/22 15:06 pain morphine AdvReac Intermediate Hypotension Verified 08/10/22 15:06 oxycodone AdvReac Intermediate Hallucinati Verified 08/10/22 15:06 ons/Confusi on Home Medications Medication Instructions Recorded Confirmed Type alirocumab 150 mg/mL subcutaneous See Rx Instructions .Route .COMPLEX 12/22/21 08/10/22 History pen injector (Praluent Pen) aspirin 81 mg tablet,delayed 81 mg PO DAILY 08/10/22 08/10/22 History release cyclobenzaprine 5 mg tablet 5 mg PO HS PRN MUSCLE SPASMS 08/10/22 08/10/22 History diltiazem HCl 120 mg tablet 120 mg PO QAM 08/10/22 08/10/22 History gabapentin 100 mg capsule 100 mg PO DIRECTED 08/10/22 08/10/22 History nitroglycerin 400 mcg/spray 0.4 mg sublingual Q5M PRN Chest 08/10/22 08/10/22 History translingual aerosol Pain Patient History Medical History (Updated 08/11/22 @ 11:30 by ULISES Gannon) CAD (coronary artery disease) s/p LAD stent (2018) 2019 cardiac cath- patent stent Celiac disease CKD (chronic kidney disease), stage III Coronary vasospasm 2018 Dyslipidemia History of claustrophobia Trouble with "mask" over face Hyperlipidemia Migraine Occipital neuralgia Follows with S neurology Osteoporosis Poor historian Raynaud's disease SVT (supraventricular tachycardia) s/p remote ablation Surgical History H/O heart artery stent Stent x1 (2017) History of cardiac cath 2019, "Mild nonobstructive coronary artery disease.. Widely patent proximal LAD stent.. 20-30% ostial LAD.. 20-30% proximal RCA" History of cardiac radiofrequency ablation History of cholecystectomy History of tonsillectomy Hx of colonoscopy Family History Mother Coronary heart disease Social History Smoking Status: Former smoker Tobacco Type: Cigarettes Second Hand Exposure: No; Do You Dip or Chew Tobacco: No; Hx Alcohol Use: No Hx Substance Use: No Preferred Language: French Communication Ability: Effective Manager Mba Required: No Beliefs That Will Affect Care: None Current Living Situation: Spouse Feels Safe at Home: Yes Safety Concerns: Feels Safe At This Time Assistive Devices: None Review of Systems Review of Systems: All systems reviewed & are unremarkable except as noted in HPI & below Physical Exam Constitutional: WD/WN, vitals as above Eyes: PERRL, conjunctivae normal, anicteric sclerae ENMT: external ear and nose normal, oropharynx normal Neck: normal visual inspection and trachea midline Respiratory: normal respiratory effort, lungs clear to auscultation Cardiovascular: RRR, no murmur, no edema Heart Sounds: normal S1 and normal S2; no murmur Vessels: no JVD Extremities: no edema Gastrointestinal (Abdomen): normal bowel sounds, soft, nontender, no hepatosplenomegaly Skin: no rashes, warm and dry Psychiatric: A+Ox3, euthymic affect Results & Data Vital Signs (Past 12 Hours) Vital Signs Temp Pulse Pulse Resp BP Pulse Ox O2 Del Method 08/11/22 08:04 36.5 C 72 18 146/85 H 98 Room Air 08/11/22 04:13 36.7 C 60 18 138/82 97 Room Air 08/10/22 23:32 78 08/10/22 21:31 36.4 C L 63 16 155/76 H 97 Room Air Laboratory Results Cardiac Enzymes 08/10/22 08/10/22 08/11/22 Range/Units 14:18 21:39 03:27 AST 25 (13-39) U/L Troponin I High Sens 2.8 2.9 3.4 (0-14) pg/ml Coagulation 08/10/22 Range/Units 14:18 PT 11.3 (9.0-12.0) Seconds Lipids 08/11/22 Range/Units 03:27 Triglycerides 86 (0-150) mg/dl Cholesterol 147 (0-200) mg/dl HDL Cholesterol 55 mg/dl Cholesterol/HDL Ratio 2.7 (0-5) CBC 08/10/22 08/11/22 Range/Units 14:18 03:27 WBC 7.07 5.89 (4.8-10.8) K/ul RBC 4.20 4.06 L (4.20-5.40) M/uL Hgb 13.0 12.9 (12.0-16.0) g/dl Hct 39.6 38.0 (37.0-47.0) % Plt Count 230 214 (130-400) K/uL Neut # (Auto) 4.66 (1.40-6.50) K/uL Lymph # (Auto) 1.66 (1.2-3.4) K/uL [place]pie # (Auto) 0.57 (0.11-0.59) K/uL Eos # (Auto) 0.11 (0-0.50) K/uL Baso # (Auto) 0.06 (0-0.2) K/uL Comprehensive Metabolic Panel 08/10/22 08/11/22 Range/Units 14:18 03:27 Sodium 139 139 (136-145) mmol/L Potassium 4.1 4.0 (3.5-5.1) mmol/L Chloride 108 H 108 H (98-107) mmol/L Carbon Dioxide 24 26 (21-32) mmol/L BUN 23 24 H (6-23) mg/dl Creatinine 0.95 0.98 (0.6-1.2) mg/dl Glucose 106 H 84 (70-99(Fasting)) mg/dl Calcium 9.2 8.8 (8.6-10.3) mg/dl AST 25 (13-39) U/L ALT 12 (7-52) U/L Alkaline Phosphatase 38 (34-104) U/L Total Protein 7.3 (6.0-8.3) gm/dl Albumin 3.8 (3.4-5.0) gm/dl Intake and Output 08/10/22 08/11/22 08/11/22 22:59 06:59 14:59 Other: Other Intake Source NPO # Unmeasured Voids 1 Weight 43.9 kg Weight Measurement Method Standing Scale Diagnostic Findings Echo 08/11/2022: PENDING* Cardiac catheterization report May 17, 2022: Left Main (% Stenosis): Normal LAD (% Stenosis): Ostial (20%), Proximal (Stent patent) and Mid (Mild) D1 (% Stenosis): Normal D2 (% Stenosis): Normal Circumflex (% Stenosis): Normal (Mild) OM1 (% Stenosis): Normal OM2 (% Stenosis): Normal OM3 (% Stenosis): Normal L PL2 (% Stenosis): Normal RCA (% Stenosis): Proximal (Mild 40 to 50%) R PDA (% Stenosis): Normal R PL1 (% Stenosis): Normal Cardiac catheterization report summary May 24, 2018: Catheterization performed secondary to abnormal stress test suggesting basal inferior ischemia. 20 to 30% ostial LAD Patent LAD stent 20 to 30% proximal RCA No evidence of vasospasm Cardiac catheterization February 07, 2018 report summary: Ostial LAD vasospasm resolved with IC nitroglycerin Patent proximal LAD stent. 40% proximal RCA - possibly spasm Elevated left ventricular end-diastolic pressure: 19mmHg (1) Chest pain Chest pain type: unspecified Qualified Code(s): R07.9 - Chest pain, unspeci fied (3) CAD (coronary artery disease) Associated angina: with angina and documented spasm Coronary Disease- Associated Artery/Lesion type: [place] artery [place] vs. transplanted heart: [place] heart Qualified Code(s): I25.111 - Atherosclerotic heart disease of [place] coronary artery with angina pectoris with documented spasm
[2022-08-11] MEDS ORDERED: ASPIRIN 81 MG ECTAB PO SCH (09:00)
[2022-08-11] MEDS ORDERED: dilTIAZem HCL 120 MG CAPCR PO SCH (09:00)
[2022-08-11] MEDS ORDERED: METOPROLOL SUCC 25MG EXT REL TAB PO SCH (11:15)
--- NOTE | 2022-08-11 13:19 | Communication Note ---
Date of Service: August 11, 2022 Patient with atypical chest pain referred for stress echocardiogram Patient exercised for 7 minutes on a standard Jamil protocol for an estimate of 8 METS while achieving greater than 90 percent age-predicted maximum heart rate. No symptoms with test stopped secondary to fatigue No stress-induced ischemic changes by EKG or echocardiography with hyperdynamic LV function at stress Impression: Stress echocardiography negative for ischemia Recommendations: Discontinue diltiazem. Discharge on metoprolol succinate 12.5 mg/day, amlodipine 5 mg/day. Follow-up as scheduled with Dr. Alexander Harry
--- NOTE | 2022-08-11 14:09 | Hospitalist Progress Note ---
Date of Service August 11, 2022 Assessment & Plan (1) Chest pain: (2) CAD (coronary artery disease): (3) Dyslipidemia: (4) H/O prior ablation treatment: (5) SVT (supraventricular tachycardia): Plan: Chest pain Vasospastic angina Coronary artery disease --CXR:No acute process within the chest. Questionable 1 cm nodular density within the right upper lobe is again noted. Consider follow-up nonemergent chest CT for further evaluation. -- Troponin negative --ECHO: Left ventricle is normal size. Mild concentric LVH. Left ventricle wall motion normal. Left ventricle is hyperdynamic. EF 65 to 70% aortic valve sclerosis mild, without significant aortic valve stenosis. Grade 1 diastolic dysfunction. Mild to moderate tricuspid regurgitation. -- Stress echo negative for ischemia --Normal lipid panel Appreciate cardiology input Continue aspirin, metoprolol Discontinue Cardizem Needs follow-up with cardiology upon discharge DVT PPx: - teds, scds, heparin subq CODE: Full code Admission and Anticipated Discharge Date Admission Date: August 10, 2022 Subjective Patient is seen and examined at bedside States feeling better today Had stress test earlier today Denies any chest pain, dyspnea, dizziness, nausea, vomiting, abdominal pain Reports being anxious while hospitalized Discussed with cardiology. Plan to discharge home today Review of Systems Review of Systems: All systems reviewed & are unremarkable except as noted in Subjective Physical Exam Physical Exam: Physical Exam: Vitals signs as noted above General Appearance:Thin, Frail, no apparent distress Head: normocephalic, Atraumatic Eyes: normal inspection, EOMI Neck: supple, Trachea midline Respiratory/Chest: Decreased breath sounds, CTA, No accessory muscle use Cardiovascular: S1, S2, No murmur Abdomen/GI:Soft, Non tender, Bowel sounds present Extremities/Musculoskeletal:normal inspection, Trace edema Neurologic/Psych:AAOX3, grossly no focal neurological deficits Skin: normal color, warm Results & Data Results & Data Vital Signs (Past 12 Hours) Vital Signs Temp Pulse Pulse Resp BP BP Pulse Ox 08/11/22 11:28 36.5 C 80 18 121/82 99 08/11/22 10:38 77 08/11/22 10:38 63 08/11/22 08:04 36.5 C 72 18 146/85 H 98 08/11/22 04:13 36.7 C 60 18 138/82 97 O2 Del Method 08/11/22 11:28 Room Air 08/11/22 10:38 08/11/22 10:38 08/11/22 08:04 Room Air 08/11/22 04:13 Room Air Laboratory Results Short CBC 08/10/22 08/11/22 Range/Units 14:18 03:27 WBC 7.07 5.89 (4.8-10.8) K/ul Hgb 13.0 12.9 (12.0-16.0) g/dl Hct 39.6 38.0 (37.0-47.0) % Plt Count 230 214 (130-400) K/uL BMP 08/10/22 08/11/22 14:18 03:27 Sodium 139 139 Potassium 4.1 4.0 Chloride 108 H 108 H Carbon Dioxide 24 26 BUN 23 24 H Creatinine 0.95 0.98 Glucose 106 H 84 Calcium 9.2 8.8 Liver Function 08/10/22 Range/Units 14:18 Total Bilirubin 0.4 (0.2-1.0) mg/dl AST 25 (13-39) U/L ALT 12 (7-52) U/L Alkaline Phosphatase 38 (34-104) U/L Albumin 3.8 (3.4-5.0) gm/dl (1) Chest pain Chest pain type: unspecified Qualified Code(s): R07.9 - Chest pain, unspecified (2) CAD (coronary artery disease) Coronary Disease-Associated Artery/Lesion type: [place] artery [place] vs. transplanted heart: [place] heart Associated angina: with angina and documented spasm Qualified Code(s): I25.111 - Atherosclerotic heart disease of [place] coronary artery with angina pectoris with documented spasm
--- NOTE | 2022-08-11 14:14 | Discharge Summary ---
Date of Service August 11, 2022 Admission HPI Per Admitting Provider This is a 72-year-old female with PMHx of CAD with history of LAD stent which was placed in 2018. At that time she was at the [facility] and experienced syncope with collapse which led to pericardial nodule removal which was biopsied and was found to be non-malignant, history of SVT and underweight ablation in [facility]. Other past medical history includes Raynaud's disease, HLD, osteoarthritis and celiac disease. Pt presents here today after experiencing an episode of chest pain which was substernal and quite severe in nature which occurredshortly after walking up and down two flights of stairs, and after she had taken her normal daily 5 mile walk this morning. She took a total of 2 nitro tablets prior to the ambulance arrival at her home, however it did not provide any pain relief. By the time she arrived to the ER and approximately 1 hour later her pain is improved however still present, calling is a dull ache. She was administered 324 mg of aspirin here. Of note she mentions a migrain history, and has been having headache which migrates in the area of her head over the past 2-3 weeks. Pt only ever takes a tylenol 250 mg at bedtime for this to help her sleep. She is a very physically active person and does not typically get chest pain with any ADLs or walking. Pt can complete the 5 mile walk within about 1 hr 20 minutes = 16 min/mile. Her friend Ruth, and significant other, Tito (whom she lives with) are present at bedside and support the history. Pt has taken all her morning medications, and is compliant. Admission Exam Per Admitting Provider General: awake, alert, no apparent distress, + thin Head: Normocephalic, atraumatic ENT: PERRL, EOMI, no pharyngeal exudate, mucous membranes moist Chest: Clear to auscultation, on room air, no adventitious breath sounds Cardiac: Regular rate and rhythm, +faint systolic murmur louder at the R sternal border, no JVD, normal peripheral pulses, good capillary refill Abdominal: NABS x 4 quadrants, soft, nondistended, nontender to palpation, no rebound or guarding Extremities: Normal inspection, no peripheral edema or erythema, calfs nontender to palpation Psych: Normal mood and affect Neuro: AAO x 3, strength intact bilaterally and rated 5/5, no motor deficits, speech is clear, no peripheral sensory deficits Principal Diagnosis Chest Pain Discharge Data Allergies Allergy/AdvReac Type Severity Reaction Status Date / Time Penicillins Allergy Severe Tongue Verified 08/10/22 15:06 swelling gluten Allergy Intermediate Gastrointestinal Verified 08/10/22 15:06 Upset codeine AdvReac Intermediate Increased Verified 08/10/22 15:06 pain morphine AdvReac Intermediate Hypotension Verified 08/10/22 15:06 oxycodone AdvReac Intermediate Hallucinati Verified 08/10/22 15:06 ons/Confusi on Consultations 08/10/22 15:24 ED Decision to Admit Stat 08/10/22 21:21 Consult Cardiology Routine Procedures Performed Laboratory Results WBC 5.89 K/ul (4.8-10.8) 08/11/22 03:27 RBC 4.06 M/uL (4.20-5.40) L 08/11/22 03:27 Hgb 12.9 g/dl (12.0-16.0) 08/11/22 03:27 Hct 38.0 % (37.0-47.0) 08/11/22 03:27 MCV 93.6 fL (80.0-100.0) 08/11/22 03:27 MCH 31.8 pg (25.0-34.0) 08/11/22 03:27 MCHC 33.9 g/dL (32.0-36.0) 08/11/22 03:27 RDW Std Deviation 47.1 fL (36.4-46.3) H 08/11/22 03:27 RDW Coeff of Lionel 13.7 % (11.5-14.5) 08/11/22 03:27 Plt Count 214 K/uL (130-400) 08/11/22 03:27 MPV 9.3 fL (9.4-12.4) L 08/11/22 03:27 Immature Gran % (Auto) 0.1 % 08/10/22 14:18 Neut % (Auto) 65.9 % 08/10/22 14:18 Lymph % (Auto) 23.5 % 08/10/22 14:18 Brewster % (Auto) 8.1 % 08/10/22 14:18 Eos % (Auto) 1.6 % 08/10/22 14:18 Baso % (Auto) 0.8 % 08/10/22 14:18 Neut # (Auto) 4.66 K/uL (1.40-6.50) 08/10/22 14:18 Lymph # (Auto) 1.66 K/uL (1.2-3.4) 08/10/22 14:18 [place]ster # (Auto) 0.57 K/uL (0.11-0.59) 08/10/22 14:18 Eos # (Auto) 0.11 K/uL (0-0.50) 08/10/22 14:18 Baso # (Auto) 0.06 K/uL (0-0.2) 08/10/22 14:18 Immature Gran # (Auto) 0.01 K/uL (0.01-0.20) 08/10/22 14:18 PT 11.3 Seconds (9.0-12.0) 08/10/22 14:18 INR 1.0 (0.9-1.1) 08/10/22 14:18 Sodium 139 mmol/L (136-145) 08/11/22 03:27 Potassium 4.0 mmol/L (3.5-5.1) 08/11/22 03:27 Chloride 108 mmol/L (98-107) H 08/11/22 03:27 Carbon Dioxide 26 mmol/L (21-32) 08/11/22 03:27 Anion Gap 5 (3-11) 08/11/22 03:27 BUN 24 mg/dl (6-23) H 08/11/22 03:27 Creatinine 0.98 mg/dl (0.6-1.2) 08/11/22 03:27 Est Cr Clr Drug Dosing 34.9 ml/min 08/11/22 03:27 Est GFR ( Amer) 65.9 ml/min 08/11/22 03:27 Est GFR (Non-Af Amer) 56.8 ml/min 08/11/22 03:27 BUN/Creatinine Ratio 24.5 (10-20) H 08/11/22 03:27 Glucose 84 mg/dl (70-99(Fasting)) 08/11/22 03:27 Estimat Average Glucose 111 mg/dl 08/11/22 03:27 Hemoglobin A1c 5.5 % (4.5-5.6) 08/11/22 03:27 Calcium 8.8 mg/dl (8.6-10.3) 08/11/22 03:27 Magnesium 1.9 mg/dl (1.7-2.4) 08/11/22 03:27 Total Bilirubin 0.4 mg/dl (0.2-1.0) 08/10/22 14:18 AST 25 U/L (13-39) 08/10/22 14:18 ALT 12 U/L (7-52) 08/10/22 14:18 Alkaline Phosphatase 38 U/L (34-104) 08/10/22 14:18 Troponin I High Sens 3.4 pg/ml (0-14) 08/11/22 03:27 Total Protein 7.3 gm/dl (6.0-8.3) 08/10/22 14:18 Albumin 3.8 gm/dl (3.4-5.0) 08/10/22 14:18 Globulin 3.5 gm/dl (2.5-4.0) 08/10/22 14:18 Albumin/Globulin Ratio 1.1 (0.9-2) 08/10/22 14:18 Triglycerides 86 mg/dl (0-150) 08/11/22 03:27 Cholesterol 147 mg/dl (0-200) 08/11/22 03:27 LDL Cholesterol, Calc 75 mg/dl 08/11/22 03:27 VLDL Cholesterol, Calc 17 mg/dl (0-30) 08/11/22 03:27 HDL Cholesterol 55 mg/dl 08/11/22 03:27 Cholesterol/HDL Ratio 2.7 (0-5) 08/11/22 03:27 Lipase 22 U/L (11-82) 08/10/22 14:18 SARS-CoV-2, RNA, NAAT NEGATIVE (NEGATIVE) 08/10/22 15:16 Impressions Chest X-Ray 08/10/22 14:15 XR chest 1V portable HISTORY: Chest pain, nonspecific COMPARISON: Chest 05/17/2022. FINDINGS: No pneumothorax. No pleural effusions. The cardiac silhouette remains normal in size. No new focal lung consolidations to suggest a pneumonia. No evidence for pulmonary edema. Questionable 1 cm nodular density within the right upper lobe again noted. IMPRESSION: 1. No acute process within the chest. 2. Questionable 1 cm nodular density within the right upper lobe is again noted. Consider follow-up nonemergent chest CT for further evaluation. ACT 112: Positive. There are findings on this exam that require communication between the performing entity and the patient following Patient Test Result Information Act ([place] Act 112) guidelines. Electronically signed by: Maximiliano Wells M.D. 08/10/2022 2:30 PM Hospital Course (1) Chest pain: (2) CAD (coronary artery disease): (3) Dyslipidemia: (4) H/O prior ablation treatment: (5) SVT (supraventricular tachycardia): Chest pain Vasospastic angina Coronary artery disease --CXR:No acute process within the chest. Questionable 1 cm nodular density within the right upper lobe is again noted. Consider follow-up nonemergent chest CT for further evaluation. -- Troponin negative --ECHO: Left ventricle is normal size. Mild concentric LVH. Left ventricle wall motion normal. Left ventricle is hyperdynamic. EF 65 to 70% aortic valve sclerosis mild, without significant aortic valve stenosis. Grade 1 diastolic dysfunction. Mild to moderate tricuspid regurgitation. -- Stress echo negative for ischemia --Normal lipid panel Appreciate cardiology input Continue aspirin, metoprolol Discontinue Cardizem Needs follow-up with cardiology upon discharge DVT PPx: - teds, scds, heparin subq CODE: Full code Total Time Total Time Spent Total Time Spent (In Minutes): 53 minutes Discharge Plan Discharge Items Patient Disposition: Home - Self-Care Reason For Visit: CHEST PAIN Discharge Diagnosis: Chest Pain Activity: Per Instructions section Exercise/Sports: Wait until after follow-up appointment Non-emergency contact: Primary Care Provider and Complaint Coordinator Call non-emergency contact if: you have any medication questions, your symptoms worsen, your pain is concerning for you and you have a fever Follow-up/Referrals: Linette Harry DO [Primary Care Provider] - (Date & Time 08/16/2022 10:00 AM Provider Osiel Puga MD [facility] ) Diet: Heart Healthy Addtl Attending Provider Instructions: Follow-up with your primary care physician Dr. Linette Harry on 08/16/2022 10:00 AM Follow-up with your bag cutter Dr. Alexander Harry as recommended. -- Your diltiazem is discontinued as recommended by your bag cutter. --Start taking amlodipine 5 mg daily and metoprolol succinate 12.5 mg daily as recommended by your bag cutter. Seek immediate medical attention if your symptoms reoccur or worsen Please take all medications as instructed on discharge list below. Please call if you have any questions or problems. You can reach a [facility] hospitalist on duty at [facility] 24 hours a day by calling [phone] Pending Studies at Discharge: No Stand-Alone Forms: My [facility], Smoking Cessation Medications and DC Order Prescriptions: New amlodipine [Norvasc] 5 mg Tablet 5 mg PO QAM Qty: 30 1RF metoprolol succinate 25 mg Tablet Extended Release 24 Hr 12.5 mg PO QAM Qty: 30 1RF Continued Praluent Pen 150 mg/mL pen injector See Rx Instructions .ROUTE .COMPLEX Rx Instructions: Pt unsure of dose. Takes twice a month. aspirin 81 mg Tablet,Delayed Release (Dr/Ec) 81 mg PO DAILY gabapentin 100 mg capsule 100 mg PO DIRECTED Rx Instructions: FILLED 08/04/22 FOR 30 DAYS/60 TABS. ON EXT MED HX--PT DID NOT MENTION THIS MED. cyclobenzaprine 5 mg tablet 5 mg PO HS PRN (Reason: MUSCLE SPASMS) nitroglycerin 400 mcg/spray aerosol,spray 0.4 mg sublingual Q5M PRN (Reason: Chest Pain) Rx Instructions: UP TO 3 SPRAYS IN 15 MINS CALL 911 FOR ONGOING CHEST PAIN Discontinued diltiazem HCl 120 mg tablet 120 mg PO QAM Discharge Orders: Discharge Order (Routine); Ordered 08/11/22 Ordered By: Luis Carlos King Admission Data Admit Date/Time: 08/10/22 16:20 Attending Provider: Luis Carlos King Admit Provider: Luis Carlos King Primary Care Provider: Linette Harry Other Providers: Alexander Harry ; Isabell Seo ; Chavez Paiz
--- NOTE | 2022-08-11 15:27 | Electrocardiogram Report ---
Test Reason : Blood Pressure : / mmHG Vent. Rate : 065 BPM Atrial Rate : 065 BPM P-R Int : 146 ms QRS Dur : 074 ms QT Int : 398 ms P-R-T Axes : 055 -13 037 degrees QTc Int : 413 ms Normal sinus rhythm Possible Left atrial enlargement Abnormal ECG When compared with ECG of 10-AUG-2022 14:11, Premature atrial complexes are no longer Present Nonspecific T wave abnormality no longer evident in Inferior leads Confirmed by David Cornell ([id number]) on 08/11/2022 3:27:21 PM Referred By: REFERRED SELF Confirmed By:Aayush Cornell
[2022-08-12] MEDS ORDERED: VERAPAMIL HCL 120 MG TABCR PO SCH (09:00)
[2022-08-12] MEDS ORDERED: amLODIPine BESYLATE 5 MG TAB PO SCH (09:00)
== END 2022-08-11 15:20 | disposition home or self-care (01) ==
LOC: 2N 14:05 → ED 14:05 → 2N 20:02